=== PATIENT | female | born 1980 | race Caucasian/White ===

== ENCOUNTER → 2020-02-09 08:50 | Outpatient (BNVA) | payer OTHER, SELFPAY | DX: O99.280 Endocrine, nutritional and metabolic diseases complicating pregnancy, unspecified trimester (principal); E06.3 Autoimmune thyroiditis; Z3A.00 Weeks of gestation of pregnancy not specified | CPT/HCPCS: 99211 ==

== ENCOUNTER 2020-02-12 12:43 | Outpatient (REF) | payer OTHER, SELFPAY ==
[2020-02-12 14:32] LABS: Free T4 (Free Thyroxine) 1.03 ng/dL (0.71-1.85)
== END 2020-02-12 12:44 | disposition home or self-care (01) ==
LOC: HO.10HDL 12:43
PROVIDERS: Visit Provider Internal Medicine
DX: E03.9 Hypothyroidism, unspecified (principal)
CPT/HCPCS: 84439; 84443

== ENCOUNTER 2020-02-26 09:55 | Outpatient (REF) | payer OTHER, SELFPAY ==
[2020-02-26 13:59] LABS: MANUAL DIFF FLAG NO
[2020-02-26 14:04] LABS: Basophils Percent Auto 0.3 % (0-2); Eosinophils Absolute Auto 0.1 X10*3/uL (0.0-0.4); Eosinophils Percent Auto 1.1 % (0-4); Hematocrit 37.7 % (37-47); Hemoglobin 12.7 g/dl (12.0-16.0); Imm Gran Abs Auto 0.03 X10*3/uL (0.00-0.03); Imm Gran Pct Auto 0.4 % (0.0-0.4); Lymphocytes Absolute Auto 1.5 X10*3/uL (1.2-4.9); Lymphocytes Percent Auto 21.1 % (20-40); Mean Corpuscular HGB Conc 33.7 g/dl (31.0-35.0); Mean Corpuscular Hemoglobin 31.5 pg (27.0-33.0); Mean Corpuscular Volume 93.5 fL (80-98); Mean Platelet Volume 10.2 fL (9.4-12.3); Monocytes Absolute Auto 0.5 X10*3/uL (0.1-1.2); Monocytes Percent Auto 7.7 % (2-11); Neutrophils Absolute Auto 4.9 X10*3/uL (2.0-8.3); Neutrophils Percent Auto 69.4 % (45-73); Platelet Count 274 X10*3/uL (160-400); Red Blood Count 4.03 X10*6/uL (4.20-5.50); Red Cell Distribution Width 12.8 % (11.0-16.0)
[2020-02-26 14:34] LABS: Amphetamine Screen Urine Not Detected (Not Detect); Barbiturates, Urine Not Detected (Not Detect); Benzodiazepines Screen Urine Not Detected (Not Detect); Cannabinoid Screen Urine Not Detected (Not Detect); Cocaine Screen Urine Not Detected (Not Detect); Opiate Screen Urine Not Detected (Not Detect); Phencyclidine Screen Urine Not Detected (Not Detect)
[2020-02-26 15:16] LABS: Syphilis Screen Nonreactive (Nonreactive)
[2020-02-27 22:14] LABS: Rubella IgG Antibody 8.19 Index
[2020-02-28 08:15] LABS: HBsAGNum1 0.19 S/CO (0.00-0.99); Hepatitis B Surface Antigen Negative (Negative)
[2020-02-28 08:38] LABS: HIV AB/AG Nonreactive (Nonreactive); HIV Num 1 0.11 S/CO (0.00-0.99); ~HepC Num1 0.08 S/CO (0.00-0.79); ~Hepatitis C Antibody Nonreactive (Nonreactive)
== END 2020-02-26 09:56 | disposition home or self-care (01) ==
LOC: HO.LAB 09:55
PROVIDERS: Advanced Practice Midwife; Visit Provider Advanced Practice Midwife
DX: O09.511 Supervision of elderly primigravida, first trimester (principal); O26.891 Other specified pregnancy related conditions, first trimester; R11.0 Nausea; O92.29 Other disorders of breast associated with pregnancy and the puerperium; O99.281 Endocrine, nutritional and metabolic diseases complicating pregnancy, first trimester; E03.9 Hypothyroidism, unspecified; Z3A.01 Less than 8 weeks gestation of pregnancy
CPT/HCPCS: 36415; 80307; 85025; 86762; 86780; 86787; 86803; 86850; 87086; 87088; 87186; 87340; 87389

== ENCOUNTER 2020-03-11 08:50 | Outpatient (REF) | payer OTHER, SELFPAY ==
[2020-03-11 12:24] LABS: Free T4 (Free Thyroxine) 1.09 ng/dL (0.71-1.85); Thyroid Stimulating Hormone 3.09 uIU/mL (0.32-4.0)
[2020-03-13 13:03] LABS: C. trachomatis RNA TMA NOT DETECTED; N. gonorrhoeae RNA TMA NOT DETECTED
== END 2020-03-11 08:51 | disposition home or self-care (01) ==
LOC: HO.LAB 08:50
PROVIDERS: Absent Provider Internal Medicine; Visit Provider Advanced Practice Midwife
DX: Z34.90 Encounter for supervision of normal pregnancy, unspecified, unspecified trimester (principal); Z34.01 Encounter for supervision of normal first pregnancy, first trimester; Z3A.09 9 weeks gestation of pregnancy; E03.9 Hypothyroidism, unspecified; Z13.31 Encounter for screening for depression
CPT/HCPCS: 84439; 84443; 87086; 87491; 87591

== ENCOUNTER → 2020-03-18 09:36 | Outpatient (BNVA) | payer OTHER, SELFPAY | PROVIDERS: Visit Provider Internal Medicine | DX: Z76.89 Persons encountering health services in other specified circumstances (principal) ==

== ENCOUNTER 2020-03-29 09:20 | Outpatient (REF) | payer OTHER, SELFPAY ==
--- NOTE | 2020-03-29 09:24 | US_ITS ---
EXAMINATION: OBSTETRICAL ULTRASOUND, FIRST TRIMESTER HISTORY: 39-year-old at 11.5 weeks NT screening COMPARISON: None TECHNIQUE: Real time transabdominal imaging with color and M-mode Doppler. FINDINGS: A single, live IUP CRL of 55 mm c/w 12.1wks is noted. Heart Rate: 170 beats per minute. Normal yolk sac seen. NT was 1.1.mm. NB Present The embryo appears sonographically wnl for this GA. Both maternal ovaries are seen and appear normal. GESTATIONAL AGE: 1. Established GA: 11.5 wks 2. GA from [facility]: 12.1 wks ESTIMATED DATE OF DELIVERY: 1. Established CRUZ: 10/13/2020 2. CRUZ from [facility]: 10/10/2020 US/US OB 1T nuc measure IMPRESSION: 1. A single live IUP 2. Size equals dates 3. NT of 1.1 mm MFM Consultation: I reviewed the ultrasound findings along with significance of NT measurement. The NT of less than 3mm is generally reassuring. However, the sensitivity for T21 detection is only 60%. I reviewed the availability of serum aneuploidy screening which includes cell-free DNA and placental protein based tests. I discussed the sensitivity, false-positive rate, and other limitations associated with each test. I also reviewed the availability of invasive diagnostic tests that are associated small but definite risk of miscarriage. We also reviewed the differences between screening tests and diagnostic tests. After our discussion, she opted for the First trimester screening that is based on cell-free DNA or non-invasive testing (NIPT). A follow up at 18 weeks for survey has been scheduled. Thank you very much for this referral. Time spent 30 min (0,10,10)
== END 2020-03-29 09:21 | disposition home or self-care (01) ==
LOC: HO.US 09:20
PROVIDERS: Visit Provider Advanced Practice Midwife
DX: O09.521 Supervision of elderly multigravida, first trimester (principal); O26.841 Uterine size-date discrepancy, first trimester; Z3A.11 11 weeks gestation of pregnancy; Z36.82 Encounter for antenatal screening for nuchal translucency
CPT/HCPCS: 76813

== ENCOUNTER → 2020-04-15 10:07 | Outpatient (BNVA) | payer OTHER, SELFPAY | PROVIDERS: Visit Provider Advanced Practice Midwife | DX: Z76.89 Persons encountering health services in other specified circumstances (principal) | CPT/HCPCS: 99212 ==

== ENCOUNTER 2020-05-06 08:00 | Outpatient (REF) | payer OTHER, SELFPAY ==
[2020-05-06 09:18] LABS: Free T4 (Free Thyroxine) 1.02 ng/dL (0.71-1.85); Thyroid Stimulating Hormone 1.28 uIU/mL (0.32-4.0)
[2020-05-07 13:32] LABS: C. trachomatis RNA TMA NOT DETECTED (NOT DETECTED); N. gonorrhoeae RNA TMA NOT DETECTED (NOT DETECTED)
== END 2020-05-06 08:01 | disposition home or self-care (01) ==
LOC: HO.LAB 08:00
PROVIDERS: Visit Provider Internal Medicine
DX: O99.280 Endocrine, nutritional and metabolic diseases complicating pregnancy, unspecified trimester (principal); E03.9 Hypothyroidism, unspecified
CPT/HCPCS: 36415; 84439; 84443; 87491; 87591

== ENCOUNTER → 2020-05-08 08:32 | Outpatient (BNVA) | payer OTHER, SELFPAY | PROVIDERS: PCP Nurse Practitioner Family; Visit Provider Internal Medicine ==

== ENCOUNTER → 2020-05-13 11:45 | Outpatient (BNVA) | payer OTHER, SELFPAY | PROVIDERS: PCP Nurse Practitioner Family; Visit Provider Advanced Practice Midwife | DX: Z76.89 Persons encountering health services in other specified circumstances (principal) | CPT/HCPCS: 99212 ==

== ENCOUNTER 2020-05-24 12:02 | Outpatient (REF) | payer OTHER, SELFPAY ==
--- NOTE | ~2020-05-24 | US_ITS ---
EXAMINATION: US OBSTETRICAL CLINICAL INFORMATION: 39-year-old at 19.1 weeks of gestation AMA Screening for anomaly COMPARISON: 03/29/2020 TECHNIQUE: Real-time transabdominal ultrasound was performed using C1-5 megahertz transducer. FINDINGS: A single, active, fetus is seen in transverse presentation. The placenta is left lateral without previa, and the amniotic fluid volume is wnl. MEASUREMENTS: 1. Biparietal Diameter: 4.5 cm; 19.5 wks 2. Occipital Frontal Diameter: 5.7 cm 3. Head Circumference: 16.9 cm; 19.4 wks 4. Abdominal Circumference: 14.7 cm; 20.0 wks 5. Femur Length: 3.1 cm; 19.5 wks 6. Humerus Length: 3.1 cm; 20.4 wks 7. Tibia Length: 2.7 cm; 20.0 wks 8. Ulna Length: 2.99 cm; 21.1 wks 9. Lateral ventricle: 0.56 cm 10. Cerebellum: 1.9 cm; 19.3 wks 11. Cisterna Magna: 0.27 cm 12. Nuchal Fold: 4.0 mm 13. Heart Rate: 137 beats per minute Rt ovary: normal Lt ovary: normal Cervical length 4.3 cm on T/A. GESTATIONAL AGE: 1. Established GA: 19.5 wks 2. GA from [facility]: 19.6 wks ESTIMATED DATE OF DELIVERY: 1. Established CRUZ: 10/13/2020 2. CRUZ from [facility]: 10/12/2020 ANATOMY: The visualized anatomy includes but not limited to: 1. Cranium: Normal 2. Intracranial anatomy: cavum septum pellucidi, lateral ventricles, choroid plexus, cerebellum, posterior fossa, third and fourth ventricles. 3. face: orbits, lip/palate, profile, nasal bone 4. Heart: four-chamber view of the heart, ventricular septum, foramen ovale, pulmonary vein, left and right outflow tracts, three-vessel view, 3 vessel trachea view, aortic and ductal arches, situs.. 5. Diaphragm: Normal 6. Abdominal wall: Normal 7. Cord Insertion: Normal 8. Spine: Cervical, thoracic, lumbar, sacral. 9. Stomach: Normal size and shape 10. Right Kidney: Normal 11. Left Kidney: Normal 12. 3 vessel cord: Normal 13. Upper extremity: Open hands, fifth digit. 14. Lower extremity: Tibia, fibula, bilateral feet. 15. Bladder: Normal 16. Genitalia: Male, patient aware US/US OB /maternal detail IMPRESSION: 1. Single, living, intrauterine with appropriate biometry. 2. Normal survey DISCUSSION: I reviewed today's ultrasound findings. We discussed the limitations of ultrasound in diagnosing aneuploidy and other congenital abnormalities. I reviewed the differences between screening test and diagnostic test. Amniocentesis was discussed and declined. She was informed that the baseline incidence of congenital abnormalities is approximately 3-5%. Not all these conditions are diagnosable in utero. RECOMMENDATIONS: 1. Follow-up when necessary Thank you for allowing me to participate in her care. Total time 30 minutes. The time spent was devoted to counseling the patient about the disease and diagnosis, coordinating care including reviewing her records, pertinent lab data and studies, as well as discussing diagnostic evaluation and workup, plan therapeutic interventions and future disposition of care. This includes any additional research needed to obtain further information in formulating the plan of care of this patient. This note was generated with a voice recognition program. Please excuse any errors which may have been overlooked during my review of this note. Sometimes these errors may affect the content or meaning of a given sentence.
== END 2020-05-24 12:03 | disposition home or self-care (01) ==
LOC: HO.US 12:02
PROVIDERS: Visit Provider Advanced Practice Midwife
DX: Z36.3 Encounter for antenatal screening for malformations (principal)
CPT/HCPCS: 76811

== ENCOUNTER 2020-06-10 09:08 | Outpatient (REF) | payer OTHER, SELFPAY | END 2020-06-10 09:09 | disposition home or self-care (01) | LOC: HO.LAB 09:08 | PROVIDERS: PCP Nurse Practitioner Family; Visit Provider Advanced Practice Midwife | DX: O09.522 Supervision of elderly multigravida, second trimester (principal); O23.42 Unspecified infection of urinary tract in pregnancy, second trimester; Z3A.22 22 weeks gestation of pregnancy | CPT/HCPCS: 81003; 87086; 99212 ==

== ENCOUNTER → 2020-07-01 08:15 | Outpatient (BNVA) | payer OTHER, SELFPAY | PROVIDERS: PCP Nurse Practitioner Family; Visit Provider Advanced Practice Midwife | DX: Z34.92 Encounter for supervision of normal pregnancy, unspecified, second trimester (principal); Z3A.25 25 weeks gestation of pregnancy | CPT/HCPCS: 81003; 99212 ==

== ENCOUNTER 2020-07-08 11:40 | Outpatient (REF) | payer OTHER, SELFPAY ==
[2020-07-08 14:20] LABS: Hematocrit 30.6 % (37-47); Hemoglobin 10.3 g/dl (12.0-16.0); Mean Corpuscular HGB Conc 33.7 g/dl (31.0-35.0); Mean Corpuscular Hemoglobin 32.3 pg (27.0-33.0); Mean Corpuscular Volume 95.9 fL (80-98); Mean Platelet Volume 10.1 fL (9.4-12.3); Platelet Count 184 X10*3/uL (160-400); Red Blood Count 3.19 X10*6/uL (4.20-5.50); Red Cell Distribution Width 13.5 % (11.0-16.0); White Blood Count 6.9 X10*3/uL (4.8-10.8)
[2020-07-08 14:22] LABS: Glucose 1 Hour PP 50gm Dose 131 mg/dL (60-140)
[2020-07-08 14:53] LABS: Thyroid Stimulating Hormone 0.61 uIU/mL (0.32-4.0)
[2020-07-08 15:15] LABS: Syphilis Screen Nonreactive (Nonreactive)
== END 2020-07-08 11:41 | disposition home or self-care (01) ==
LOC: HO.LAB 11:40
PROVIDERS: Absent Provider Internal Medicine; Visit Provider Advanced Practice Midwife
DX: O99.280 Endocrine, nutritional and metabolic diseases complicating pregnancy, unspecified trimester (principal); E03.9 Hypothyroidism, unspecified; Z20.2 Contact with and (suspected) exposure to infections with a predominantly sexual mode of transmission
CPT/HCPCS: 36415; 84439; 84443; 85027; 86780

== ENCOUNTER → 2020-07-22 10:42 | Outpatient (BNVA) | payer OTHER, SELFPAY | PROVIDERS: Visit Provider Advanced Practice Midwife | DX: Z34.93 Encounter for supervision of normal pregnancy, unspecified, third trimester (principal); Z3A.28 28 weeks gestation of pregnancy; Z13.31 Encounter for screening for depression | CPT/HCPCS: 81003; 99212 ==

== ENCOUNTER → 2020-08-05 10:29 | Outpatient (BNVA) | payer OTHER, SELFPAY | PROVIDERS: Visit Provider Advanced Practice Midwife | DX: Z34.93 Encounter for supervision of normal pregnancy, unspecified, third trimester (principal); Z3A.30 30 weeks gestation of pregnancy | CPT/HCPCS: 81003; 99212 ==

== ENCOUNTER 2020-08-16 08:23 | Outpatient (REF) | payer OTHER, SELFPAY ==
--- NOTE | ~2020-08-16 | US_ITS ---
EXAMINATION: OBSTETRICAL ULTRASOUND, Follow up HISTORY: 39-year-old at the 32.0 weeks of gestation AMA High BMI Size date discrepancy COMPARISON: 05/24/2020 TECHNIQUE: Real time transabdominal imaging with color and M-mode Doppler. PRESENTATION: Vertex PLACENTA LOCATION: Left lateral previa AMNIOTIC FLUID: MICHAEL 21 cm MEASUREMENTS: 1. Biparietal Diameter: 8.3 cm; 33.2 wks 2. Head Circumference: 30.2 cm; 33.4 wks 3. Abdominal Circumference: 29.3 cm; 33.2 wks 4. Femur Length: 6.2 cm; 32.2 wks 5. Heart Rate: 143 beats per minute WEIGHT: EFW: 2094 grams (4 lbs 10 oz) -- 71 %. BIOPHYSICAL PROFILE: Motion: 2 Tone: 2 Breathin Amniotic Fluid: 2 Total score: 8/8 GESTATIONAL AGE: 1. Established GA: 32.0 wks 2. GA from [facility]: 33.1 wks ESTIMATED DATE OF DELIVERY: 1. Established CRUZ: 10/11/2020 2. CRUZ from [facility]: 10/03/2020 US/US OB follow up IMPRESSION: 1. Single active fetus is in vertex presentation 2. Size equals dates 3. Reassuring biophysical profile Thank you very much for this referral. This note was generated with a voice recognition program. Please excuse any errors which may have been overlooked during my review of this note. Sometimes these errors may affect the content or meaning of a given sentence.
== END 2020-08-16 08:24 | disposition home or self-care (01) ==
LOC: HO.US 08:23
PROVIDERS: Visit Provider Advanced Practice Midwife
DX: O99.213 Obesity complicating pregnancy, third trimester (principal); O09.513 Supervision of elderly primigravida, third trimester; Z3A.32 32 weeks gestation of pregnancy; E66.9 Obesity, unspecified
CPT/HCPCS: 76816

== ENCOUNTER 2020-08-21 08:14 | Outpatient (REF) | payer OTHER, SELFPAY ==
[2020-08-21 10:26] LABS: Free T4 (Free Thyroxine) 1.09 ng/dL (0.71-1.85); Thyroid Stimulating Hormone 0.42 uIU/mL (0.32-4.0)
== END 2020-08-21 08:15 | disposition home or self-care (01) ==
LOC: HO.LAB 08:14
PROVIDERS: Visit Provider Internal Medicine
DX: O09.513 Supervision of elderly primigravida, third trimester (principal); O99.213 Obesity complicating pregnancy, third trimester; O99.283 Endocrine, nutritional and metabolic diseases complicating pregnancy, third trimester; E03.9 Hypothyroidism, unspecified; E06.3 Autoimmune thyroiditis; Z3A.32 32 weeks gestation of pregnancy
CPT/HCPCS: 36415; 81003; 84439; 84443; 99212

== ENCOUNTER → 2020-08-28 09:24 | Outpatient (BNVA) | payer OTHER, SELFPAY | PROVIDERS: Visit Provider Internal Medicine ==

== ENCOUNTER → 2020-09-02 10:56 | Outpatient (BNVA) | payer OTHER, SELFPAY | PROVIDERS: Visit Provider Advanced Practice Midwife | DX: Z34.93 Encounter for supervision of normal pregnancy, unspecified, third trimester (principal); Z3A.34 34 weeks gestation of pregnancy | CPT/HCPCS: 81003; 90471; 90715; 99212 ==

== ENCOUNTER 2020-09-16 08:48 | Outpatient (REF) | payer OTHER, SELFPAY ==
[2020-09-16 17:51] LABS: CT PCR NOT DETECTED (Not Detect.); NG PCR NOT DETECTED (Not Detect.)
== END 2020-09-16 08:49 | disposition home or self-care (01) ==
LOC: HO.LAB 08:48
PROVIDERS: Visit Provider Advanced Practice Midwife
DX: O99.213 Obesity complicating pregnancy, third trimester (principal); E66.9 Obesity, unspecified
CPT/HCPCS: 59025; 81003; 87081; 87147; 87491; 87591; 99212

== ENCOUNTER 2020-09-20 14:04 | Outpatient (REF) | payer OTHER, SELFPAY ==
--- NOTE | ~2020-09-20 | US_ITS ---
EXAMINATION: OBSTETRICAL ULTRASOUND, Follow up HISTORY: 39-year-old at 37.0 weeks of gestation AMA High BMI COMPARISON: 08/16/2020 TECHNIQUE: Real time transabdominal imaging with color and M-mode Doppler. PRESENTATION: Vertex PLACENTA LOCATION: Left lateral without previa AMNIOTIC FLUID: MICHAEL 11.6 cm MEASUREMENTS: 1. Biparietal Diameter: 9.5 cm; 38.5 wks 2. Head Circumference: 33.9 cm; 39.0 wks 3. Abdominal Circumference: 32.4 cm; 36.3 wks 4. Femur Length: 7.0 cm; 36.0 wks 5. Heart Rate: 140 beats per minute WEIGHT: EFW: 3021 grams (6 lbs 11 oz) -- 49 %. BIOPHYSICAL PROFILE: Motion: 2 Tone: 2 Breathin Amniotic Fluid: 2 Total score: 8/8 GESTATIONAL AGE: 1. Established GA: 37.0 wks 2. GA from [facility]: 37.4 wks ESTIMATED DATE OF DELIVERY: 1. Established CRUZ: 10/11/2020 2. CRUZ from [facility]: 10/07/2020 US/US OB biophysical profile IMPRESSION: 1. A single active fetus is in vertex presentation 2. Size equals dates 3. Reassuring biophysical profile Thank you very much for this referral. Suggest the weekly testing for AMA and high BMI (not scheduled). This note was generated with a voice recognition program. Please excuse any errors which may have been overlooked during my review of this note. Sometimes these errors may affect the content or meaning of a given sentence.
== END 2020-09-20 14:05 | disposition home or self-care (01) ==
LOC: HO.US 14:04
PROVIDERS: Visit Provider Advanced Practice Midwife
DX: O09.513 Supervision of elderly primigravida, third trimester (principal); O99.213 Obesity complicating pregnancy, third trimester; E66.9 Obesity, unspecified; Z3A.36 36 weeks gestation of pregnancy
CPT/HCPCS: 59025; 76819; 81003; 99212

== ENCOUNTER → 2020-09-24 10:42 | Outpatient (BNVA) | payer OTHER, SELFPAY | PROVIDERS: Visit Provider Advanced Practice Midwife ==

== ENCOUNTER 2020-09-24 13:58 | Outpatient (REF) | payer OTHER, SELFPAY ==
--- NOTE | ~2020-09-24 | US_ITS ---
EXAMINATION: US OBSTETRICAL (BIOPHYSICAL PROFILE) CLINICAL INFORMATION: Gestation 37 weeks 4 days. AMA. High BMI. COMPARISON: Obstetrical ultrasound follow-up 09/20/2020, 08/16/2020, obstetrical ultrasound 05/24/2020, 03/29/2020. TECHNIQUE: Ultrasound of the pelvis is performed. Biophysical profile is performed over 30 minutes with assessment of breathing, gross body movement, tone, and qualitative amniotic fluid volume. Each matrix is scored 0 or 2, depending if the metric is present. Maximum total score possible is 8. Examination is not intended to assess for anomalies. FINDINGS: POSITION: Cephalic PLACENTA: Left lateral. No previa. AMNIOTIC FLUID INDEX: 14.2 cm CARDIAC ACTIVITY: 130 beats per minute BIOPHYSICAL PROFILE: Motion: 2 Tone: 2 Breathin Amniotic Fluid: 2 Total score: 8 US/US OB biophysical profile IMPRESSION: 1. Single intrauterine gestation in cephalic position with left lateral placenta. 2. Total biophysical score is 8 (scale 0-8). 3. Amniotic fluid index 14.2 cm. 4. cardiac activity 130 beats per minute.
== END 2020-09-24 13:59 | disposition home or self-care (01) ==
LOC: HO.HMGCX 13:58
PROVIDERS: Visit Provider Advanced Practice Midwife
DX: O09.523 Supervision of elderly multigravida, third trimester (principal); O99.213 Obesity complicating pregnancy, third trimester; O28.8 Other abnormal findings on antenatal screening of mother; Z79.899 Other long term (current) drug therapy; Z3A.37 37 weeks gestation of pregnancy
CPT/HCPCS: 59025; 76819; 99212

== ENCOUNTER 2020-09-27 08:27 | Outpatient (REF) | payer OTHER, SELFPAY ==
--- NOTE | ~2020-09-27 | US_ITS ---
EXAMINATION: US OBSTETRICAL (BIOPHYSICAL PROFILE) CLINICAL INFORMATION: 39-year-old at that 37.4 weeks of gestation High BMI AMA COMPARISON: 09/24/2020 TECHNIQUE: Biophysical profile is performed over 30 minutes with assessment of breathing, gross body movement, tone, and qualitative amniotic fluid volume. FINDINGS: POSITION: Cephalic PLACENTA: Left lateral without previa AMNIOTIC FLUID INDEX: 15 cm CARDIAC ACTIVITY: 139 beats per minute BIOPHYSICAL PROFILE: Motion: 2 Tone: 2 Breathin Amniotic Fluid: 2 The total biophysical score is 8/8 US/US OB biophysical profile IMPRESSION: 1. Single intrauterine gestation in vertex position. 2. Reassuring BPP and MICHAEL She is to continue weekly BPP and NST until delivery at approximately 40-41 weeks of gestation. Thank you for allowing me to participate in her care. This note was generated with a voice recognition program. Please excuse any errors which may have been overlooked during my review of this note. Sometimes these errors may affect the content or meaning of a given sentence.
== END 2020-09-27 08:28 | disposition home or self-care (01) ==
LOC: HO.US 08:27
PROVIDERS: Visit Provider Advanced Practice Midwife
DX: O99.213 Obesity complicating pregnancy, third trimester (principal); E66.9 Obesity, unspecified; Z3A.36 36 weeks gestation of pregnancy
CPT/HCPCS: 59025; 76819; 81003; 99212

== ENCOUNTER → 2020-10-01 08:51 | Outpatient (BNVA) | payer OTHER, SELFPAY | PROVIDERS: Visit Provider Advanced Practice Midwife | DX: Z34.93 Encounter for supervision of normal pregnancy, unspecified, third trimester (principal); Z3A.38 38 weeks gestation of pregnancy | CPT/HCPCS: 59025; 81003; 99212 ==

== ENCOUNTER 2020-10-04 08:21 | Outpatient (REF) | payer OTHER, SELFPAY ==
--- NOTE | ~2020-10-04 | US_ITS ---
EXAMINATION: OBSTETRICAL ULTRASOUND, Follow up HISTORY: 39-year-old at the 39.0 weeks of gestation Size date discrepancy High BMI AMA COMPARISON: 09/27/2020 TECHNIQUE: Real time transabdominal imaging with color and M-mode Doppler. PRESENTATION: Vertex PLACENTA LOCATION: Left lateral without previa AMNIOTIC FLUID: MICHAEL 12.9 cm MEASUREMENTS: 1. Biparietal Diameter: 9.5 cm; 38.5 wks 2. Head Circumference: 35.1 cm; 40.6 wks 3. Abdominal Circumference: 36.8 cm; 40.5 wks 4. Femur Length: 7.2 cm; 36.6 wks 5. Heart Rate: 149 beats per minute WEIGHT: EFW: 3855 grams (8 lbs 2 oz) -- 83 %. BIOPHYSICAL PROFILE: Motion: 2 Tone: 2 Breathin Amniotic Fluid: 2 Total score: 8/8 GESTATIONAL AGE: 1. Established GA: 39.0 wks 2. GA from [facility]: 39.2 wks ESTIMATED DATE OF DELIVERY: 1. Established CRUZ: 10/13/2020 2. CRUZ from [facility]: 10/09/2020 US/US OB follow up IMPRESSION: 1. A single active fetus is in vertex presentation 2. Size greater than dates, EFW corresponds to 83rd percentile 3. BPP 8/8, MICHAEL within normal limits. Thank you very much for this referral. This note was generated with a voice recognition program. Please excuse any errors which may have been overlooked during my review of this note. Sometimes these errors may affect the content or meaning of a given sentence.
== END 2020-10-04 08:22 | disposition home or self-care (01) ==
LOC: HO.US 08:21
PROVIDERS: Visit Provider Advanced Practice Midwife
DX: O28.8 Other abnormal findings on antenatal screening of mother (principal)
CPT/HCPCS: 59025; 76816; 81003; 99212

== ENCOUNTER → 2020-10-08 09:29 | Outpatient (BNVA) | payer OTHER, SELFPAY | PROVIDERS: Visit Provider Advanced Practice Midwife | DX: O09.513 Supervision of elderly primigravida, third trimester (principal); O99.213 Obesity complicating pregnancy, third trimester; Z3A.39 39 weeks gestation of pregnancy | CPT/HCPCS: 59025; 81003; 99212 ==

== ENCOUNTER 2020-10-11 08:21 | Outpatient (REF) | payer OTHER, SELFPAY ==
--- NOTE | ~2020-10-11 | US_ITS ---
EXAMINATION: US OBSTETRICAL (BIOPHYSICAL PROFILE) CLINICAL INFORMATION: 39-year-old at 40.0 weeks of gestation AMA COMPARISON: 10/04/2020 TECHNIQUE: Biophysical profile is performed over 30 minutes with assessment of breathing, gross body movement, tone, and qualitative amniotic fluid volume. FINDINGS: POSITION: Cephalic PLACENTA: Left lateral, no previa AMNIOTIC FLUID INDEX: 12.2 cm CARDIAC ACTIVITY: 158 beats per minute BIOPHYSICAL PROFILE: Motion: 2 Tone: 2 Breathin Amniotic Fluid: 2 The total biophysical score is 8/8 US/US OB biophysical profile IMPRESSION: 1. Single intrauterine gestation in vertex position. 2. Reassuring BPP and MICHAEL Thank you for allowing me to participate in her care. This note was generated with a voice recognition program. Please excuse any errors which may have been overlooked during my review of this note. Sometimes these errors may affect the content or meaning of a given sentence.
== END 2020-10-11 08:22 | disposition home or self-care (01) ==
LOC: HO.US 08:21
PROVIDERS: Visit Provider Advanced Practice Midwife
DX: O09.523 Supervision of elderly multigravida, third trimester (principal); O99.213 Obesity complicating pregnancy, third trimester; Z3A.39 39 weeks gestation of pregnancy
CPT/HCPCS: 59025; 76819; 99212

== ENCOUNTER 2020-12-02 13:40 | Outpatient (REF) | payer OTHER, SELFPAY ==
[2020-12-02 15:13] LABS: Free T4 (Free Thyroxine) 1.03 ng/dL (0.71-1.85); Thyroid Stimulating Hormone 0.77 uIU/mL (0.32-4.0); Vitamin D 25-OH Total 35.6 ng/mL (>30)
== END 2020-12-02 13:41 | disposition home or self-care (01) ==
LOC: HO.LAB 13:40
PROVIDERS: Visit Provider Internal Medicine
DX: E55.9 Vitamin D deficiency, unspecified (principal); E03.9 Hypothyroidism, unspecified
CPT/HCPCS: 36415; 82306; 84439; 84443

== ENCOUNTER → 2020-12-04 08:16 | Outpatient (BNVA) | payer OTHER, SELFPAY | PROVIDERS: Visit Provider Internal Medicine ==

== ENCOUNTER 2020-12-16 08:47 | Outpatient (REF) | payer OTHER, SELFPAY ==
[2020-12-16 13:30] LABS: CT PCR NOT DETECTED (Not Detect.); NG PCR NOT DETECTED (Not Detect.)
== END 2020-12-16 08:48 | disposition home or self-care (01) ==
LOC: HO.LAB 08:47
PROVIDERS: Visit Provider Advanced Practice Midwife
DX: Z39.2 Encounter for routine postpartum follow-up (principal); A64 Unspecified sexually transmitted disease
CPT/HCPCS: 87491; 87591

== ENCOUNTER → 2021-02-03 08:25 | Outpatient (BNVA) | payer OTHER, SELFPAY | PROVIDERS: Visit Provider Advanced Practice Midwife | DX: Z30.430 Encounter for insertion of intrauterine contraceptive device (principal) | CPT/HCPCS: 58300; 81025 ==

== ENCOUNTER → 2021-03-10 08:54 | Outpatient (BNVA) | payer OTHER, SELFPAY | PROVIDERS: Visit Provider Advanced Practice Midwife | DX: Z30.431 Encounter for routine checking of intrauterine contraceptive device (principal) | CPT/HCPCS: 99212 ==

== ENCOUNTER 2021-04-15 09:01 | Outpatient (REF) | payer OTHER, SELFPAY ==
[2021-04-15 10:48] LABS: Free T4 (Free Thyroxine) 0.86 ng/dL (0.71-1.85); Thyroid Stimulating Hormone 9.39 uIU/mL (0.32-4.0); Vitamin D 25-OH Total 25.1 ng/mL (>30)
== END 2021-04-15 09:02 | disposition home or self-care (01) ==
LOC: HO.LAB 09:01
PROVIDERS: Visit Provider Internal Medicine
DX: E03.9 Hypothyroidism, unspecified (principal); E55.9 Vitamin D deficiency, unspecified
CPT/HCPCS: 36415; 82306; 84439; 84443

== ENCOUNTER → 2021-04-16 07:46 | Outpatient (BNVA) | payer OTHER, SELFPAY | PROVIDERS: Visit Provider Internal Medicine ==

== ENCOUNTER 2021-05-23 11:57 | Outpatient (REF) | payer OTHER, SELFPAY ==
[2021-05-23 13:17] LABS: Free T4 (Free Thyroxine) 1.09 ng/dL (0.71-1.85); Thyroid Stimulating Hormone 6.58 uIU/mL (0.32-4.0); Vitamin D 25-OH Total 32.1 ng/mL (>30)
== END 2021-05-23 11:58 | disposition home or self-care (01) ==
LOC: HO.LAB 11:57
PROVIDERS: Visit Provider Internal Medicine
DX: E03.9 Hypothyroidism, unspecified (principal); E55.9 Vitamin D deficiency, unspecified
CPT/HCPCS: 36415; 82306; 84439; 84443

== ENCOUNTER 2021-07-30 10:27 | Outpatient (REF) | payer OTHER, SELFPAY ==
[2021-07-30 11:26] LABS: Free T4 (Free Thyroxine) 1.11 ng/dL (0.71-1.85); Thyroid Stimulating Hormone 0.78 uIU/mL (0.32-4.0)
== END 2021-07-30 10:28 | disposition home or self-care (01) ==
LOC: HO.10HDL 10:27
PROVIDERS: Visit Provider Internal Medicine
DX: E03.9 Hypothyroidism, unspecified (principal)
CPT/HCPCS: 36415; 84439; 84443

== ENCOUNTER → 2021-08-04 09:04 | Outpatient (BNVA) | payer OTHER, SELFPAY | PROVIDERS: Visit Provider Internal Medicine | DX: E03.9 Hypothyroidism, unspecified (principal); E55.9 Vitamin D deficiency, unspecified ==

== ENCOUNTER → 2022-03-02 08:18 | Outpatient (BNVA) | payer OTHER, SELFPAY | PROVIDERS: Visit Provider Advanced Practice Midwife | DX: Z01.419 Encounter for gynecological examination (general) (routine) without abnormal findings (principal); Z30.432 Encounter for removal of intrauterine contraceptive device; Z30.09 Encounter for other general counseling and advice on contraception | CPT/HCPCS: 58301 ==

== ENCOUNTER 2022-11-20 09:46 | Outpatient (REF) | payer OTHER, SELFPAY ==
--- NOTE | ~2022-11-20 | MM_ITS ---
EXAMINATION: MM SCREENING DIGITAL BREAST TOMOSYNTHESIS, BILATERAL CLINICAL INFORMATION: Screening. Asymptomatic. COMPARISON: Mammography: None. Baseline exam. TECHNIQUE: Digital breast tomosynthesis is performed in both the craniocaudal and mediolateral oblique views along with computer-aided detection (CAD). Synthesized 2D images are generated from the tomosynthesis. FINDINGS: There are scattered areas of fibroglandular density (ACR BI-RADS breast composition Category b). Within the right breast, middle one third, approximate 11:30 o'clock location, there is a 7 mm bilobed circumscribed mass most consistent with an intramammary lymph node although ultrasound recommended for confirmation. No additional abnormal findings in the right breast. Within the left breast, upper outer quadrant, anterior one third, there is a 9 mm triangular circumscribed mass, most likely an intramammary lymph node, although ultrasound recommended for confirmation. No additional abnormalities in the left breast. MM/MM tomosynthesis screening BI IMPRESSION: Bilateral breast masses suspicious for lymph nodes as detailed above. Recommend bilateral targeted ultrasound for further evaluation. ASSESSMENT: BI-RADS BI-RADS 0 - Incomplete: Needs additional Imaging. RECOMMENDATION: 1. Targeted ultrasound both breasts as detailed. 2. Radiology department staff will contact the patient for additional imaging. Additional Imaging required This examination should not preclude the clinical evaluation of a suspicious palpable abnormality. This patient's information was entered into a reminder system with a target due date for their next mammogram.
== END 2022-11-20 09:47 | disposition home or self-care (01) ==
LOC: HO.MAMMO 09:46
PROVIDERS: PCP Nurse Practitioner Family; Visit Provider Advanced Practice Midwife
DX: Z12.31 Encounter for screening mammogram for malignant neoplasm of breast (principal)
CPT/HCPCS: 77063; 77067

== ENCOUNTER → 2022-11-20 10:00 | Outpatient (BNV) | payer OTHER, SELFPAY | PROVIDERS: PCP Nurse Practitioner Family; Visit Provider Radiology Diagnostic Radiology | DX: Z12.31 Encounter for screening mammogram for malignant neoplasm of breast (principal) | CPT/HCPCS: 77063; 77067 ==

== ENCOUNTER 2022-12-07 12:47 | Outpatient (REF) | payer OTHER, SELFPAY ==
--- NOTE | ~2022-12-07 | US_ITS ---
EXAMINATION: US DIAGNOSTIC ULTRASOUND BREAST, BILATERAL CLINICAL INFORMATION: Evaluate 7 mm bilobed circumscribed mass right BREAST approximately 11:30 o'clock location. Evaluate left triangular shaped 9 mm mass upper outer LEFT breast, anterior one third. COMPARISON: Screening mammography baseline, 11/20/2022. TECHNIQUE: Ultrasound of the both breasts was performed with real-time iniguez scale imaging and color Doppler. Attention was paid to the right breast upper outer quadrant, and the left breast upper outer quadrant. FINDINGS: RIGHT BREAST: Within the 12:00 axis of the right breast, 3 cm from the nipple, there is a small bilobed appearing complicated cyst versus fibroadenoma measuring 3 x 2 x 6 mm. There is a small amount of through transmission, circumscribed margins, no internal color Doppler signal, and no surrounding parenchymal changes. This is a probably benign finding such as a small complicated cyst or fibroadenoma. Six-month interval follow-up targeted right breast ultrasound recommended to ensure stability. No additional abnormalities noted in the RIGHT breast region scanned. LEFT BREAST: Within the 2:00 axis of the left breast, 5 cm from the nipple, there is an oval slightly hypoechoic mass versus complicated cyst with minimal through transmission, no internal color Doppler signal, and and circumscribed margins, measuring 7 x 4 x 7 mm. This may be a small fibroadenoma versus complicated cyst and is a probably benign finding. Six-month interval follow-up targeted left breast ultrasound recommended to ensure stability. No additional abnormalities noted in the LEFT breast region scanned. Results were discussed with the patient at time of the visit. US/US breast BI limited mamm only IMPRESSION: Bilateral small probably benign subcentimeter breast masses versus complicated cysts as detailed. Recommend six-month interval follow-up targeted bilateral breast ultrasounds to ensure stability. ASSESSMENT: BI-RADS 3: Probably Benign RECOMMENDATION: Diagnostic ultrasonography in 6 months. This patient's information was entered into a reminder system with a target due date for their next mammogram.
== END 2022-12-07 12:48 | disposition home or self-care (01) ==
LOC: HO.MAMMO 12:47
PROVIDERS: PCP Nurse Practitioner Family; Visit Provider Nurse Practitioner Family
DX: N63.11 Unspecified lump in the right breast, upper outer quadrant (principal); N63.21 Unspecified lump in the left breast, upper outer quadrant
CPT/HCPCS: 76642

== ENCOUNTER → 2022-12-07 13:00 | Outpatient (BNV) | payer OTHER, SELFPAY | PROVIDERS: PCP Nurse Practitioner Family; Visit Provider Radiology Diagnostic Radiology | DX: R92.8 Other abnormal and inconclusive findings on diagnostic imaging of breast (principal) | CPT/HCPCS: 76642 ==

== ENCOUNTER 2022-12-21 10:14 | Outpatient (AMB) | payer OTHER, SELFPAY ==
--- NOTE | 2022-12-21 10:18 | MHC.PC.OV ---
Vital Signs 12/21/22 10:25 Height 5 ft 3.5 in Weight 239 lb 2 oz BMI 41.7 BP 132/78 Blood Pressure Location Lt brachial Position Sitting Pulse 72 Pulse Source Pulse Oximeter Pulse Oximetry (%) 98 Oxygen Delivery Method Room Air Intake Visit Reasons: New patient-requesting physical Intake Note: Patient is a new patient here to establish care for Hashimodoes(Immune Hypothyroidism) . Transfer[place] Wang ([facility] [place] Medical records have not been requested and have not received. Sap Developer Required: No Corporate Legal Secretary: Not Required per policy Accompanied by: Self / Same As Patient Allergies No Known Allergies Allergy (Verified 12/21/22 10:25) Tobacco use date assessed: 12/21/22 Dental Screening Dental Screen Date: 12/21/22 Did you have a dental visit in the last 12 months?: Yes Did you have a dental problem in the last 6 months where you did not have access to dental care?: No Was dental information given to patient?: Patient has dentist HPI HPI Comments History of Present Illness Details 42-year-old female new patient presents today to establish care. Past medical history significant for Samuel hypothyroidism, vitamin-D deficiency and obesity. Patient reports currently following with [facility] functional medicine for hypothyroidism patient currently on Gorman Thyroid 120mg daily, last TSH completed in 1.98, Free T4 0.82, CMP unremarkable. Patient reports that has been on levothyroxine in the past for many years and states it does not work for. On levothyroxine patient continues to experience fatigue and sluggishness. Patient denies any chest pain, palpitations shortness of breath or syncope. Mammogram: November, possible cyst vs fibroademon f/u imaging scheduled in 6 months. pap smear: February 2022, follows with Janice Vergara. Eye exam: 2021 Immunizations: Flu shot given today in office, TDAP August 2020 Previous PCP: Dr. Iggy CEDILLO Medical History COVID-19 vaccine administered Obesity Vitamin D deficiency Hypothyroidism Surgical History History of placement of ear tubes History of appendectomy Family History Father History of heart disease Type 2 diabetes mellitus Maternal Grandmother History of colon cancer Maternal Grandfather History of colon cancer Paternal Grandmother History of heart disease Social History (Updated 12/21/22 @ 10:49 by MIRA Moore) Household Members: Significant Other Both parents involved: Yes Housing: House Are you a primary laboratory animal caretaker to a significant other at home: No Alcohol intake: current Alcohol intake frequency: a few times a month Patient Tobacco Use Status: Never used Tobacco e-Cigarette/Vaping Use: Never Used Second Hand Smoke Exposure: No service: No Current occupational status: employed Current occupation: [employer] Cognitive needs: No Hearing needs: No Vision needs: Yes (glasses) Female Reproductive History Menstrual Age of Menarche: 15 Questionnaire PHQ-9 Over the last 2 weeks, how often have you been bothered by any of the following problems? 1. Little interest or pleasure in doing things: not at all 2. Feeling down, depressed, or hopeless: not at all 3. Trouble falling or staying asleep, or sleeping too much: not at all 4. Feeling tired or having little energy: not at all 5. Poor appetite or overeating: not at all 6. Feeling bad about yourself - or that you are a failure or have let yourself or your family down: not at all 7. Trouble concentrating on things, such as reading the newspaper or watching television: not at all 8. Moving or speaking so slowly that other people could have noticed. Or the opposite - being so fidgety or restless that you have been moving around a lot more than usual: not at all 9. Thoughts that you would be better off or of hurting yourself in some way: not at all Total score: 0 Depression Screening Interpretation: Negative 56782 - PHQ-9 Billing: Yes Source: Developed by Drs. Sandeep Shannon, Arlet Felder, Jair Sanchez and colleagues, with an educational rachael from [employer]. Thrive Questionnaire Date Thrive assessed: 12/21/22 I am a: Patient What is your living situation today?: I have a steady place to live Within the past 12 months, did the food you bought not last and you didn't have the money to get more?: Never true Within the past 12 months, did you worry whether your food would run out before you got money to buy more?: Never true Do you have trouble paying for medicines?: No Do you have trouble getting transportation to medical appointments?: No Do you have trouble paying your heating and electricity bill?: No Do you have trouble taking care of your child, family member or friend?: No Do you have trouble with day-to-day activities such as bathing, preparing meals, shopping, managing finances, etc.?: No Are you currently unemployed and looking for a job?: No Are you interested in more education?: No Currently or been in a relationship where the following occur: no concerns reported AUDIT C Alcohol Use Questionnaire (AUDIT-C) 1. How often do you have a drink containing alcohol?: Never Total Score: 0 RYAN-7 AMB Questionnaire RYAN-7 Date RYAN - 7 assessed: 12/21/22 Feeling nervous, anxious, or on edge: 0 = Not at all Not being able to stop or control worryin = Not at all Worrying too much about different things: 0 = Not at all Trouble relaxin = Not at all Being so restless that it is hard to sit still: 0 = Not at all Becoming easily annoyed or irritable: 0 = Not at all Feeling afraid as if something awful might happen: 0 = Not at all Total RYAN-7 score (0-4 normal; 5-9 mild; 10-14 moderate; 15-21 severe): 0 Source: Developed by Drs. Sandeep Shannon, Arlet Felder, Jair Sanchez and colleagues, with an educational rachael from [employer]. RYAN-7 Assessment Billing RYAN-7 Assessment Tool: RYAN-7 Assessment 99051 Review of Systems Const Denies chills, Denies fatigue, Denies fever(s) and Denies poor appetite Eyes Denies no additional complaints ENT Reports Normal hearing present Card Denies chest pain, Denies syncope, Denies rapid heart rate and Denies dyspnea Resp Denies cough and Denies dyspnea GI Denies change in stool character, Denies constipation, Denies diarrhea, Denies nausea and Denies vomiting Denies urinary frequency, Denies dysuria and Denies urinary urgency Neuro Reports Normal hearing present, Denies confusion and Denies syncope Psych Denies confusion Endo Denies fatigue Physical exam (Primary Care) Vital Signs: Last Vital Signs Pulse 72 12/21/22 10:25 BP 132/78 12/21/22 10:25 Pulse Ox 98 12/21/22 10:25 Oxygen Delivery Method Room Air 12/21/22 10:25 BMI result Body Mass Index 41.7 Tobacco/Smoking Status: Tobacco use Status Tobacco use date assessed 12/21/22 12/21/22 10:32 Patient Tobacco Use Status Never used Tobacco 12/21/22 10:49 e-Cigarette/Vaping Use Never Used 12/21/22 10:49 PHQ-9: PHQ-9 Score PHQ-9: Total score 0 12/21/22 10:50 Depression Screening Interpretation: Negative Thrive Assessment: Date of Thrive Assessment Date Thrive assessed 12/21/22 12/21/22 10:21 Currently or been in a relationship where the following occur: no concerns reported Const General: No confusion Orientation/consciousness: No confusion HENMT Head: Yes normocephalic and Yes atraumatic Ears: external ears normal and TM's normal bilaterally General nose exam: Normal external nose present and Normal nasal mucous membranes and turbinates present Face and sinus: Yes normal facial exam and Yes sinuses nontender Mouth: moist mucous membranes Throat: Yes tonsils normal Eyes Conjunctivae: conjunctivae normal Sclerae: sclerae normal Pupils: Equal, round and reactive pupils present and Pupils normal by confrontation EOM: EOMs intact bilaterally Direct Ophthalmoscopy: normal light reflex Neck Neck: Yes no lymphadenopathy and Yes supple Thyroid: Thyroid normal Chest Chest palpation & inspection: normal inspection of the chest Resp Effort & Inspection: normal respiratory effort Auscultation: clear to auscultation bilaterally, no crackles, no rhonchi and no wheezes Cardio Rate: regular rate Rhythm: regular rhythm Peripheral pulses: radial pulses present and dorsalis pedis present GI Inspection: Yes normal to inspection Palpation (GI): Soft to palpation, nontender and No hepatosplenomegaly present Auscultation: normoactive bowel sounds Skin General skin exam: no rashes or lesions noted Neuro General: No confusion Cranial nerves: Yes Equal, round and reactive pupils present and Yes Normal hearing present Cognition (Neuro): normal cognition Gait exam (Neuro): Normal gait present Motor exam (neuro): 5/5 motor strength present throughout Deep tendon reflexes (DTR's): Right brachioradialis reflex intensity grade: 2+, Left brachioradialis reflex intensity grade: 2+, Right patellar reflex intensity grade: 2+ and Left patellar reflex intensity grade: 2+ Extrem General: No edema Office Procedures Flu Questionnaire Does the patient have a severe egg allergy?: No Does the patient have severe life threatening allergies?: No Does the patient have a fever or illness today?: No Has the patient ever had Guillain-Newcastle Syndrome?: No Has the patient ever had any past reaction to a flu shot?: No Comment: Patient has had flu vaccine in past with no reactions. consents for flu shot today. Immunizations flu vacc [id number] 6mos up(PF) 60 mcg(15 mcgx4)/0.5 mL IM syringe Performing Provider: MIRA Moore Performing Location: [facility] Administered by: Erik Sharif RN on 12/21/22 10:55 Dose Route Admin Location Dispensed Lot Number Expiration Date NDC Pairer Substandard 0.5 mL IM Left Deltoid 0.5 mL [id number] 09/19/23 [id number] [place] VIS Given Date VIS Provided VIS Publication Date 12/21/22 Single Vaccine 20 Eligibility Eligibility Date Funding Source Not [facility] Eligible 12/21/22 Private Administration Comments: tolerated well Assessment and Plan Assessment & Plan (1) Hypothyroidism: Code(s): E03.9 - Hypothyroidism, unspecified Qualifiers: Hypothyroidism type: unspecified Qualified Code(s): E03.9 - Hypothyroidism, unspecified Plan: Continue on armor Thyroid 20 mg daily. Continue to follow with [facility] functional medicine. (2) Vitamin D deficiency: Code(s): E55.9 - Vitamin D deficiency, unspecified Plan: Vitamin-D level ordered. (3) Obesity: Code(s): E66.9 - Obesity, unspecified Plan: Diet and exercise to decrease BMI. (4) Physical exam, annual: Code(s): Z00.00 - Encounter for general adult medical examination without abnormal findings Plan: Follow-up in 1 year for physical exam. Plan Follow-up in 1 year sooner if needed. Orders: Orders Influenza [id number] Immunization Today Z23 - Encounter for immunization Complete Blood Count Auto Diff Today Z13.0 - Encounter for screening for diseases of the blood and blood-forming organs and certain disorders involving the immune mechanism Lipid Panel Today Z13.220 - Encounter for screening for lipoid disorders Comprehensive [place]. Panel Fast Today E66.9 - Obesity, unspecified TSH reflex Free T4 Today Z13.29 - Encounter for screening for other suspected endocrine disorder Vitamin D 25-OH Total Today E55.9 - Vitamin D deficiency, unspecified Coding Level of Care Code New Pt Prev Care 40-64y(80751) Diagnoses Hypothyroidism, unspecified type E03.9 Hypothyroidism type: unspecified Vitamin D deficiency E55.9 Obesity E66.9 Physical exam, annual Z00.00 Additional Codes RYAN-7 Assessment Billing - RYAN-7 Assessment Tool: RYAN-7 Assessment 70794 ([id number])
[2022-12-21 10:25] VITALS: BP 132/78; PULSE 72; O2SAT 98; BMI 41.7
== END 2022-12-21 11:03 | disposition home or self-care (01) ==
PROVIDERS: PCP Nurse Practitioner Family; Visit Provider Nurse Practitioner Family
DX: Z00.00 Encounter for general adult medical examination without abnormal findings (principal); E03.9 Hypothyroidism, unspecified; E55.9 Vitamin D deficiency, unspecified; Z23 Encounter for immunization
CPT/HCPCS: 90471; 90686; 99386

== ENCOUNTER 2023-01-25 07:55 | Outpatient (REF) | payer OTHER, SELFPAY ==
[2023-01-25 08:28] LABS: MANUAL DIFF FLAG NO
[2023-01-25 09:09] LABS: Basophils Percent Auto 0.3 % (0-2); Eosinophils Absolute Auto 0.1 X10*3/uL (0.0-0.4); Eosinophils Percent Auto 1.9 % (0-4); Hematocrit 39.2 % (37.0-47.0); Hemoglobin 13.1 g/dl (12.0-16.0); Imm Gran Abs Auto 0.02 X10*3/uL (0.00-0.03); Imm Gran Pct Auto 0.3 % (0.0-0.4); Lymphocytes Absolute Auto 1.6 X10*3/uL (1.2-4.9); Lymphocytes Percent Auto 26.7 % (20-40); Mean Corpuscular HGB Conc 33.4 g/dl (31.0-35.0); Mean Corpuscular Volume 89.7 fL (80.0-98.0); Mean Platelet Volume 9.7 fL (9.4-12.3); Monocytes Absolute Auto 0.3 X10*3/uL (0.1-1.2); Monocytes Percent Auto 5.8 % (2-11); Neutrophils Absolute Auto 3.8 x10*3/uL (2.0-8.3); Platelet Count 268 X10*3/uL (160-400); Red Blood Count 4.37 X10*6/uL (4.20-5.50); Red Cell Distribution Width 12.7 % (11.0-16.0); White Blood Count 5.9 X10*3/uL (4.8-10.8)
[2023-01-25 09:46] LABS: Alanine Aminotransferase 13 U/L (0-31); Albumin Level 4.1 g/dL (3.5-5.0); Alkaline Phosphatase 43 U/L (39-117); Anion Gap 10 (12-20); Aspartate Amino Transferase 15 U/L (5-31); Bilirubin Total 0.9 mg/dL (0.0-1.0); Blood Urea Nitrogen 19 mg/dL (9-16); Calcium 9.3 mg/dL (8.4-10.2); Carbon Dioxide 23 mmol/L (22-29); Chloride 110 mmol/L (96-108); Cholesterol 183 mg/dL (<200); Estimated Glomerular Filt Rate > 60; Glucose Fasting 94 mg/dL (60-99); HDL Cholesterol 57 mg/dL (>40); LDL Cholesterol Calculated 117 mg/dL (<100); Potassium 4.4 mmol/L (3.3-5.1); Sodium 139 mmol/L (135-145); Total Protein 6.9 g/dL (6.5-8.0); Triglycerides 45 mg/dL (<150)
[2023-01-25 09:52] LABS: TSH reflex Free T4 1.63 uIU/mL (0.32-4.0)
[2023-01-25 09:57] LABS: Vitamin D 25-OH Total 37.3 ng/mL (>30)
== END 2023-01-25 07:56 | disposition home or self-care (01) ==
LOC: HO.LAB 07:55
PROVIDERS: PCP Nurse Practitioner Family; Visit Provider Nurse Practitioner Family
DX: E66.9 Obesity, unspecified (principal); E55.9 Vitamin D deficiency, unspecified; Z13.0 Encounter for screening for diseases of the blood and blood-forming organs and certain disorders involving the immune mechanism; Z13.220 Encounter for screening for lipoid disorders; Z13.29 Encounter for screening for other suspected endocrine disorder
CPT/HCPCS: 36415; 80053; 80061; 82306; 84443; 85025

== ENCOUNTER 2023-03-10 08:19 | Outpatient (AMB) | payer OTHER, SELFPAY ==
--- NOTE | 2023-03-10 08:20 | MHC.OFFVIS ---
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 Doing well with concerns: Trying to conceive over the last year. 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 Currently taking her vitamins. Regular monthly menses, except for the last cycle which was 10 days late. She denies vaginal itching and irritation. STI screening offered; she declined. Denies family history of breast, ovarian cancer. Last pap smear 2018, negative. Mammogram: Up-to-date. [facility] Medical History COVID-19 vaccine administered Obesity Vitamin D deficiency Hypothyroidism Surgical History History of placement of ear tubes History of appendectomy Family History Father History of heart disease Type 2 diabetes mellitus Maternal Grandmother History of colon cancer Maternal Grandfather History of colon cancer Paternal Grandmother History of heart disease Social History Household Members: Significant Other Both parents involved: Yes Housing: House Are you a primary primary care nurse practitioner to a significant other at home: No Alcohol intake: current Alcohol intake frequency: a few times a month Patient Tobacco Use Status: Never used Tobacco e-Cigarette/Vaping Use: Never Used Second Hand Smoke Exposure: No service: No Current occupational status: employed Current occupation: [employer] Cognitive needs: No Hearing needs: No Vision needs: Yes (glasses) Female Reproductive History Menstrual Age of Menarche: 15 Date of last menstrual period: 03/09/23 Total pregnancies: 1 Full term: 1 Number of Living Children: 1 Date of last pap smear: 09/05/18 (neg pap and hpv) History of abnormal pap smear: Yes (06/05 ascus neg hpv) Date of Mammogram: 11/20/22 (Birad 1) Review of Systems Const All systems reviewed & are unremarkable except as noted in HPI and below Reports as per HPI Eyes Reports no additional complaints ENT Reports no additional complaints Card Reports no additional complaints Resp Reports no additional complaints GI Reports as per HPI and Reports no additional complaints Reports as per HPI Musc Reports no additional complaints Skin/Breast Reports as per HPI Neuro Reports no additional complaints Psych Reports no additional complaints Endo Reports no additional complaints Rashel/Lymph Reports no additional complaints Aller/Immun Reports no additional complaints Physical Exam Vital Signs: Last Vital Signs BP 108/68 03/10/23 08:22 BMI result Body Mass Index 42.5 Const General: cooperative, healthy appearing, no acute distress, well developed and alert Orientation/consciousness: patient oriented x3 HEENT Head: Yes normal to inspection Eyes General: appearance normal, both eyes and all related structures Neck Neck: Yes normal visual inspection Thyroid: Thyroid normal Chest Chest palpation & inspection: normal inspection of the chest and other (no puckering, dimpling, peau de orange, retraction, discharge, masses) Breast/axilla inspection: normal inspection of the breasts Breast/axilla palpation: normal palpation of the breasts Resp Effort & Inspection: normal respiratory effort GI Other: Ob Inspection: Yes normal to inspection Palpation (GI): Soft to palpation Rectal Exam - Female: deferred General: Yes bladder normal to palpation External Female Exam: normal external appearance and normal appearance of the urethra Speculum Exam - Vagina: normal appearance of the vagina, normal palpation and normal vaginal discharge Speculum Exam - Cervix: normal appearance of the cervix and normal palpation Bimanual exam- vagina & uterus: normal bimanual exam, normal palpation, uterine size normal, bladder normal to palpation, normal palpation and non-tender Bimanual Exam- Adnexa, other: no masses Skin General skin exam: no rashes or lesions noted Rashes: no rashes Neuro General: patient oriented x3 Cognition (Neuro): normal cognition Extrem General: Yes normal to inspection Psych Attitude: cooperative Thought process: Normal thought process present Assessment & Plan Assessment & Plan (1) Encounter for well woman exam with routine gynecological exam: Code(s): Z01.419 - Encounter for gynecological examination (general) (routine) without abnormal findings Plan Discussed: Current recommendations for pap smears per ASCCP guidelines. Breast awareness and periodic breast exams. Maintain a healthy lifestyle including a well balanced diet and routine exercise. Weight loss goals, BMI impact on fertility. Reviewed weight gain over this year was 31 lb., she reports motivation to lose weight on her own. Continue to use fertility hilaria. Discussed [facility] services locally recurrent late on hold for 6 months if she decides she would like to travel to [facility] or [place] she can request a referral. Mammogram yearly. Colonoscopy >45, or at risk sooner. All of her questions and concerns were addressed to the best of my ability. 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 This note is constructed using voice recognition software. While every effort has been made to ensure accuracy, baby doctor errors may have been included. Medications: Refilled PNV,calcium [id number] acid 27 mg iron- 1 mg ( Vitamins Plus Low Iron) 1 tab PO DAILY 90 tabs 4RF Coding Level of Care Code Est Pt Prev Care 40-64y(95948) Diagnoses Encounter for well woman exam with routine gynecological exam Z01.419
[2023-03-10 08:22] VITALS: BP 108/68; BMI 42.5
== END 2023-03-10 08:52 | disposition home or self-care (01) ==
LOC: HO.HWS 08:19
PROVIDERS: PCP Nurse Practitioner Family; Visit Provider Advanced Practice Midwife
DX: Z01.419 Encounter for gynecological examination (general) (routine) without abnormal findings (principal)
CPT/HCPCS: 99396

== ENCOUNTER → 2023-03-10 08:19 | Outpatient (BNVA) | payer OTHER, SELFPAY | PROVIDERS: PCP Nurse Practitioner Family; Visit Provider Advanced Practice Midwife | DX: Z01.419 Encounter for gynecological examination (general) (routine) without abnormal findings (principal) | CPT/HCPCS: 99396 ==

== ENCOUNTER 2023-06-07 12:37 | Outpatient (REF) | payer OTHER, SELFPAY ==
--- NOTE | ~2023-06-07 | US_ITS ---
EXAMINATION: US DIAGNOSTIC ULTRASOUND BREAST, BILATERAL CLINICAL INFORMATION: Follow-up bilateral probably benign densities seen 12/07/2022 ultrasound. Correlation made with baseline screening mammogram 11/20/2022. COMPARISON: Bilateral diagnostic ultrasound 12/07/2022. Screening mammography baseline, 11/20/2022. TECHNIQUE: Ultrasound of both breasts is performed with real-time iniguez scale imaging and color Doppler. Attention right breast was given to the 12:00 axis, and attention left breast was given to the approximate 2:00 axis. FINDINGS: LEFT BREAST: -Small oval circumscribed hypoechoic mass in the 2:00 axis, 5 cm from the nipple, with good through transmission and no internal color vascularity, is essentially stable measuring 8 x 4 x 4 mm. This is most likely a benign fibroadenoma. Finding remains probably benign. No additional abnormalities left breast. RIGHT BREAST: -In the 12:00 axis left breast, 3 cm from the nipple, there is a stable and unchanged 3 x 3 x 6 mm small mildly hypoechoic circumscribed fibroadenoma or complicated cyst with good through transmission, and remains probably benign. US/US breast BI limited mamm only IMPRESSION: Probably benign findings both breasts as detailed, unchanged. 6 month interval follow-up recommended targeted bilateral breast ultrasound when the patient is due for bilateral screening mammography in November,. ASSESSMENT: BI-RADS 3: Probably Benign RECOMMENDATION: Diagnostic bilateral ultrasound in 6 months. This patient's information was entered into a reminder system with a target due date for their next mammogram.
== END 2023-06-07 12:38 | disposition home or self-care (01) ==
LOC: HO.MAMMO 12:37
PROVIDERS: PCP Internal Medicine; Visit Provider Internal Medicine
DX: R92.2 Inconclusive mammogram (principal)
CPT/HCPCS: 76642

== ENCOUNTER → 2023-06-07 14:00 | Outpatient (BNV) | payer OTHER, SELFPAY | PROVIDERS: PCP Internal Medicine; Visit Provider Radiology Diagnostic Radiology | DX: N60.21 Fibroadenosis of right breast (principal); N60.22 Fibroadenosis of left breast | CPT/HCPCS: 76642 ==

== ENCOUNTER 2023-08-02 15:02 | Outpatient (AMB) | payer OTHER, SELFPAY ==
[2023-08-02 15:05] VITALS: BP 112/80; BMI 41.5
--- NOTE | 2023-08-02 15:05 | A.OFFPC_ITS ---
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 Accompanied by: Self / Same As Patient Allergies No Known Allergies Allergy (Verified 08/02/23 15:21) Medication List - Last Reconciled 08/02/23 by Sonia Donovan MD PNV,calcium 12-dfmd-xdans acid 27 mg iron- 1 mg ( Vitamins Plus Low Iron) 1 tab PO DAILY thyroid (pork) ([place] Thyroid) 30 mg PO DAILY 90 days thyroid (pork) ([place] Thyroid) 90 mg PO DAILY 90 days Tobacco use date assessed: 08/02/23 Dental Screening Dental Screen Date: 08/02/23 Did you have a dental visit in the last 12 months?: Yes Did you have a dental problem in the last 6 months where you did not have access to dental care?: No Was dental information given to patient?: Patient has dentist HPI HPI Comments History of Present Illness Details This is a 42-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 Last TSH was normal and this will be repeated today. Vitamin-D levels were ordered. She is morbidly obese with a BMI of 41.5 and was advised to diet and exercise. She does have gluten sensitivity and I will test her for celiac disease. No chest pain or shortness of breath. PFS Medical History (Updated 08/02/23 @ 15:41 by Sonia Donovan MD) COVID-19 vaccine administered Obesity Vitamin D deficiency Hypothyroidism Surgical History History of placement of ear tubes History of appendectomy Family History (Updated 08/02/23 @ 15:25 by Sonia Donovan MD) Father History of heart disease Type 2 diabetes mellitus Maternal Grandmother History of colon cancer Maternal Grandfather History of colon cancer Paternal Grandmother History of heart disease Mother No problems noted. Social History Household Members: Significant Other Housing: House Are you a primary acute care nursing assistant to a significant other at home: No Alcohol intake: current Alcohol intake frequency: a few times a month Patient Tobacco Use Status: Never used Tobacco e-Cigarette/Vaping Use: Never Used Second Hand Smoke Exposure: No service: No Current occupational status: employed Current occupation: [employer] ([email or web address]) Current occupational exposures/hazards: No Cognitive needs: No Hearing needs: No Vision needs: Yes (glasses) Female Reproductive History Menstrual Age of Menarche: 15 Questionnaire PHQ-9 Over the last 2 weeks, how often have you been bothered by any of the following problems? 1. Little interest or pleasure in doing things: not at all 2. Feeling down, depressed, or hopeless: not at all 3. Trouble falling or staying asleep, or sleeping too much: not at all 4. Feeling tired or having little energy: not at all 5. Poor appetite or overeating: not at all 6. Feeling bad about yourself - or that you are a failure or have let yourself or your family down: not at all 7. Trouble concentrating on things, such as reading the newspaper or watching television: not at all 8. Moving or speaking so slowly that other people could have noticed. Or the opposite - being so fidgety or restless that you have been moving around a lot more than usual: not at all 9. Thoughts that you would be better off or of hurting yourself in some way: not at all Total score: 0 Depression Screening Interpretation: Negative Depression Screening Done: Yes 71070 - PHQ-9 Billing: Yes Source: Developed by Drs. Sandeep Shannon, Arlet Felder, Jair Sanchez and colleagues, with an educational rachael from [employer]. Thrive Questionnaire Date Thrive assessed: 08/02/23 I am a: Patient What is your living situation today?: I have a steady place to live Within the past 12 months, did the food you bought not last and you didn't have the money to get more?: Never true Within the past 12 months, did you worry whether your food would run out before you got money to buy more?: Never true Do you have trouble paying for medicines?: No Do you have trouble getting transportation to medical appointments?: No Do you have trouble paying your heating and electricity bill?: No Do you have trouble taking care of your child, family member or friend?: No Do you have trouble with day-to-day activities such as bathing, preparing meals, shopping, managing finances, etc.?: No Are you currently unemployed and looking for a job?: No Are you interested in more education?: No Please select the resources that you would like help with: None Currently or been in a relationship where the following occur: no concerns reported THRIVE Score: 0 AUDIT C Alcohol Use Questionnaire (AUDIT-C) 1. How often do you have a drink containing alcohol?: Never Total Score: 0 RYAN-7 AMB Questionnaire RYAN-7 Date RYAN - 7 assessed: 08/02/23 Feeling nervous, anxious, or on edge: 0 = Not at all Not being able to stop or control worryin = Not at all Worrying too much about different things: 0 = Not at all Trouble relaxin = Not at all Being so restless that it is hard to sit still: 0 = Not at all Becoming easily annoyed or irritable: 0 = Not at all Feeling afraid as if something awful might happen: 0 = Not at all Total RYAN-7 score (0-4 normal; 5-9 mild; 10-14 moderate; 15-21 severe): 0 Source: Developed by Drs. Sandeep Shannon, Arlet Felder, Jair Sanchez and colleagues, with an educational rachael from [employer]. RYAN-7 Assessment Billing RYAN-7 Assessment Tool: RYAN-7 Assessment 38085 Review of Systems Const All systems reviewed & are unremarkable except as noted in HPI and below Eyes Reports no additional complaints, Denies change in vision and Denies other visual disturbances Card Denies chest pain at rest, Denies chest pain with activity, Denies edema, Denies irregular heart rhythm, Denies claudication, Denies dyspnea, Denies dyspnea on exertion, Denies orthopnea, Denies paroxysmal nocturnal dyspnea and Denies slow heart rate Resp Denies cough, Denies dyspnea and Denies dyspnea on exertion Physical exam (Primary Care) Vital Signs: Last Vital Signs BP 112/80 08/02/23 15:05 BMI result Body Mass Index 41.5 Tobacco/Smoking Status: Tobacco use Status Tobacco use date assessed 08/02/23 08/02/23 15:11 Patient Tobacco Use Status Never used Tobacco 08/02/23 15:11 e-Cigarette/Vaping Use Never Used 08/02/23 15:11 PHQ-9: PHQ-9 Score PHQ-9: Total score 0 08/02/23 15:26 Depression Screening Interpretation: Negative Thrive Assessment: Date of Thrive Assessment Date Thrive assessed 08/02/23 08/02/23 15:11 Currently or been in a relationship where the following occur: no concerns reported Resp Effort & Inspection: normal respiratory effort Auscultation: clear to auscultation bilaterally Cardio Jugular venous distension: no JVD Rate: regular rate Rhythm: regular rhythm Heart sounds: S1 normal heart sound present and S2 normal heart sound present Extrem General: Yes full ROM Assessment and Plan Assessment & Plan (1) Vitamin D deficiency: Code(s): E55.9 - Vitamin D deficiency, unspecified Plan: Repeat vitamin-D levels. (2) Samuel's disease: Code(s): E06.3 - Autoimmune thyroiditis Plan: Continue thyroid medication. Repeat TSH. (3) Morbid obesity: Code(s): E66.01 - Morbid (severe) obesity due to excess calories Plan: Start diet and exercise. BMI goal is less than 30. Orders: Orders Vitamin D 25-OH Total Today E55.9 - Vitamin D deficiency, unspecified Thyroid Stimulating Hormone Today E03.9 - Hypothyroidism, unspecified Free T4 (Free Thyroxine) Today E03.9 - Hypothyroidism, unspecified Celiac Diagnostic Gliadin TTG Today Z91.018 - Allergy to other foods Coding Level of Care Code Est Pt Level 3 (75301) Diagnoses Vitamin D deficiency E55.9 Samuel's disease E06.3 Morbid obesity E66.01 Additional Codes RYAN-7 Assessment Billing - RYAN-7 Assessment Tool: RYAN-7 Assessment 22165 ([id number]) Time Spent (min) 20
== END 2023-08-02 15:37 | disposition home or self-care (01) ==
PROVIDERS: PCP Nurse Practitioner Family; Visit Provider Internal Medicine
DX: E55.9 Vitamin D deficiency, unspecified (principal); E66.01 Morbid (severe) obesity due to excess calories; Z68.42 Body mass index [BMI] 45.0-49.9, adult; E06.3 Autoimmune thyroiditis
CPT/HCPCS: 99213

== ENCOUNTER 2023-08-02 15:42 | Outpatient (REF) | payer OTHER, SELFPAY ==
[2023-08-02 17:54] LABS: Free T4 (Free Thyroxine) 0.68 ng/dL (0.71-1.85); Thyroid Stimulating Hormone 0.88 uIU/mL (0.32-4.0); Vitamin D 25-OH Total 30.8 ng/mL (>30)
[2023-08-04 07:53] LABS: Gliadin Deamidated IgA Ab 19.3 U/mL; Immunoglobulin A 140 mg/dL (47-310); Transglutaminase Ab IgG <1.0 U/mL; Transglutaminase IgA 55.1 U/mL
== END 2023-08-02 15:43 | disposition home or self-care (01) ==
LOC: HO.LAB 15:42
PROVIDERS: PCP Internal Medicine; Visit Provider Internal Medicine
DX: E03.9 Hypothyroidism, unspecified (principal); E55.9 Vitamin D deficiency, unspecified; Z91.018 Allergy to other foods
CPT/HCPCS: 36415; 82306; 82784; 84439; 84443; 86258; 86364

== ENCOUNTER 2023-09-18 17:31 | Emergency (ER) | payer OTHER, SELFPAY ==
--- NOTE | ~2023-09-18 | CT_ITS ---
EXAMINATION: CT facial bones wo IV con CLINICAL INFORMATION: ? jaw dislocation vs fracture COMPARISON: None TECHNIQUE: Imaging was performed from the skull base to vertex without intravenous administration of contrast. In addition, helical noncontrast CT imaging was acquired through the facial bones and source images were reviewed along with axial reconstructions and sagittal and coronal MPRs. This CT examination was performed using dose optimization techniques as appropriate, variously including the following: * Automated exposure control * Adjustment of mA and/or kV according to patient size (this includes techniques or standardized protocols for targeted exams where dose is matched to indication/reason for exam; i.e. extremities or head) Use of iterative reconstruction technique Total exam dose-length product 441 mGy-cm FINDINGS: No acute maxillofacial fractures are seen. The mandible, maxilla, pterygoid plates, nasal bones, zygomatic arches, paranasal sinus bowman, and bony orbits are intact. The frontal, maxillary, ethmoid, and sphenoid sinuses are well aerated. The uncinate process is normal bilaterally. The infundibula and middle meati are patent. There is a mild leftward nasal septal deviation. The mandibular heads are well-seated in the condylar fossa. The orbits demonstrate a normal appearance bilaterally. The globes are intact, and there are no suspicious findings to suggest retrobulbar hemorrhage. Imaged intracranial compartment is unremarkable. CT/CT facial bones wo IV con IMPRESSION: No acute fracture or dislocation of the maxillofacial bones.
[2023-09-18 17:34] VITALS: BP 147/99; PULSE 69; RESP 16; TEMP 36.4; O2SAT 100; BMI 40.1
--- NOTE | 2023-09-18 17:35 | ED.GENADULT ---
HPI - General Adult General Chief complaint: General Medical Stated complaint: ?Jaw dislocation Time Seen by Provider: 09/18/23 20:23 Source: patient Mode of arrival: ambulatory Limitations: no limitations History of Present Illness ED Provider: Dr. Shawna Kumar HPI narrative: Patient comes to the emergency room complaining of bilateral jaw pain. Patient states she was doing well until yesterday when she was taking her 2-year-old kid, the child accidentally hit the patient in the front of the mouth with his head. Since then, patient has had significant bilateral jaw pain. Patient states that she has no dental pain. Patient states that it hurts when she opens and closes her mouth. Related Data Previous Rx's ?Medication ?Instructions ?Recorded vitamin with calcium 1 tab PO DAILY #90 tabs 03/10/23 no.72-iron 27 mg-folic acid 1 mg tablet ( Vitamins Plus Low Iron) thyroid (pork) 30 mg tablet 30 mg PO DAILY 90 days #90 tabs 07/28/23 ([facility] Thyroid) thyroid (pork) 90 mg tablet 90 mg PO DAILY 90 days #90 tabs 07/28/23 ([facility] Thyroid) cyclobenzaprine 10 mg tablet 10 mg PO TID PRN muscle spasm #6 09/18/23 tabs diazepam 2 mg tablet 2 mg PO BEDTIME #1 tab 09/18/23 ketorolac 10 mg tablet 10 mg PO .B.i.d. PRN pain 3 days 09/18/23 #6 tabs Allergies Allergy/AdvReac Type Severity Reaction Status Date / Time No Known Allergies Allergy Verified 09/18/23 17:36 Review of Systems Review of Systems: Constitutional : No Weight loss, No Fever, No Chills, No Night Sweats, No Fatigue, No Malaise ENT/Mouth : No Hearing loss, No Ear Pain, No Nasal Congestion, No Sinus Pain, No Hoarseness, No sore throat, No Rhinorrhea, No Swallowing Difficulty Eyes: No Eye Pain, No Swelling, No Redness, No Foreign Body, No Discharge, No Vision Changes Cardiovascular : No Chest Pain, No SOB, No Dyspnea on Exertion, No Orthopnea, No Edema, No Palpitations Respiratory : No Cough, No Sputum, No Wheezing, No Smoke Exposure, No Dyspnea Gastrointestinal : No Nausea, No Vomiting, No Diarrhea, No Constipation, No abdominal Pain, No Hematochezia, No Melena Genitourinary : no irregular bleeding, No Dysuria, No Urinary Frequency, No Hematuria, No Urinary Incontinence, No Urgency, No Flank Pain, No Urinary Flow Changes, No Hesitancy Musculoskeletal : Complaining of bilateral jaw pain, No joint pain, No Myalgias, No Joint Swelling Skin : No Skin Lesions, No rash Neuro : No Weakness, No Numbness, No Paresthesias, No Loss of Consciousness, No Dizziness, No Headache Psych : No Anxiety/Panic, No Depression, No SI/HI/AH/VH, No Social Issues, Heme/Lymph: No Bruising, No Bleeding,No Lymphadenopathy Endocrine : No Polyuria, No Polydipsia, No Temperature Intolerance [facility] Past Medical History Medical History COVID-19 vaccine administered Obesity Vitamin D deficiency Hypothyroidism Surgical History History of placement of ear tubes History of appendectomy Family History Family History (Updated 08/02/23 @ 15:25 by Sonia Donovan MD) Father History of heart disease Type 2 diabetes mellitus Maternal Grandmother History of colon cancer Maternal Grandfather History of colon cancer Paternal Grandmother History of heart disease Mother No problems noted. Social History Social History Household Members: Significant Other Housing: House Are you a primary acute care assistant to a significant other at home: No Alcohol intake: current Alcohol intake frequency: a few times a month Patient Tobacco Use Status: Never used Tobacco e-Cigarette/Vaping Use: Never Used Second Hand Smoke Exposure: No Advance Directives: No Advance Directives Information Provided: No Do you have a plan to hurt others: No Plan service: No Current occupational status: employed Current occupation: [email or web address] Current occupational exposures/hazards: No Cognitive needs: No Hearing needs: No Vision needs: Yes (glasses) Physical Exam ED Vital Signs: Vital Signs - 24 hr 09/18/23 17:34 09/18/23 20:16 Temperature 97.6 F 98.2 F Pulse Rate 69 63 Respiratory Rate 16 16 Blood Pressure 147/99 H 132/86 Pulse Oximetry 100 100 Oxygen Delivery Method Room Air Room Air BMI result Body Mass Index 40.1 Const Other: Appearance: Alert. Oriented X3. No acute distress. Eyes: Pupils equal, round and reactive to light. ENT: Pharynx normal. Normal tone, normal teeth, bilateral tympanic membranes within normal limits. There is no clicking or dislocation of the jaws bilaterally. Neck: Normal inspection. Neck supple. No lymph nodes noted. No crepitus CVS: Normal heart rate and rhythm. Pulses normal. Normal S1 and S2 Respiratory: No respiratory distress. Breath sounds normal. No Wheezing. No rales Abdomen: Soft and nontender. No rigidity. No distention. Skin: Skin warm and dry. Normal skin color. Normal skin turgor. Extremities: No lower extremity edema. No Lacerations. No Rash Neuro: Oriented X 3. No motor deficit. No sensory deficit. Moving all extremities. No slurred speech. CN 2 through 12 grossly intact Psych: calm, cooperative, normal affect Course Course Course Narrative: This is a Rapid Medical Examination (RME) performed by Windy Michel PA-C in triage. Full HPI, ROS, assessment and treatment plan per primary provider in the Main ED. 42 yo female here for eval of bilateral jaw pain beginning yesterday. Patient reports tingling her 2-year-old yesterday when he accidentally kicked her bottom jaw, pushing upward. Patient reports immediate bilateral jaw pain. She has had difficulty opening her mouth and is concerned it may be dislocated. Thought the pain would resolve today. Taking Tylenol Motrin without relief. positive trismus on exam. speaking in complete sentences. in obvious discomfort Plan: imaging ordered Medical Decision Making Medical Decision Making MDM Narrative: I discussed the physical exam with the patient, likely patient has contusion versus reactivation of TMJ. Patient states that she has had TMJ pain in the past, it is similar. However, there is no significant clicking at this time. -patient was given 1 dose of IM Toradol. Patient is driving, so relaxants will be sent to her pharmacy to be taken at bedtime -CT scan report: No acute fracture or dislocation Differential Diagnosis Differential Diagnoses: The differential diagnosis associated with the presentation includes (TMJ, contusion, dental pain, otitis, otalgia) Lab Data Labs: Lab Results 09/18/23 Range/Units 17:45 Beta HCG, Quant < 2 mIU/mL Independent Interpretation I performed an independent interpretation of an: CT Scan Radiology Impression Discussion of test interpretation with radiology: I have reviewed the radiologist's reading. Radiologist Impression: FINDINGS: No acute maxillofacial fractures are seen. The mandible, maxilla, pterygoid plates, nasal bones, zygomatic arches, paranasal sinus obwman, and bony orbits are intact. The frontal, maxillary, ethmoid, and sphenoid sinuses are well aerated. The uncinate process is normal bilaterally. The infundibula and middle meati are patent. There is a mild leftward nasal septal deviation. The mandibular heads are well-seated in the condylar fossa. The orbits demonstrate a normal appearance bilaterally. The globes are intact, and there are no suspicious findings to suggest retrobulbar hemorrhage. Imaged intracranial compartment is unremarkable. CT/CT facial bones wo IV con IMPRESSION: No acute fracture or dislocation of the maxillofacial bones. Discharge Plan Discharge Clinical Impression: Jaw pain Patient Disposition: Home, Self-Care Instructions: Jaw Dislocation (ED) Additional Instructions: Please follow-up with your primary care physician tomorrow. If you have any worsening or new symptoms, please return to the emergency room or call 911 Prescriptions: New ketorolac 10 mg tablet 10 mg PO .B.i.d. PRN (Reason: pain) 3 Days Qty: 6 0RF Rx Instructions: maximum total duration of 5 days from all oral, intranasal, or parenteral formulations diazepam 2 mg tablet 2 mg PO BEDTIME Qty: 1 0RF cyclobenzaprine 10 mg tablet 10 mg PO TID PRN (Reason: muscle spasm) Qty: 6 0RF Rx Instructions: Do not mixed with diazepam No Action thyroid (pork) [[facility] Thyroid] 30 mg tablet 30 mg PO DAILY 90 Days Qty: 90 0RF thyroid (pork) [[facility] Thyroid] 90 mg tablet 90 mg PO DAILY 90 Days Qty: 90 0RF Vitamin Plus Low Iron 27 mg iron- 1 mg tablet 1 tab PO DAILY Qty: 90 4RF Print Language: Albanian
[2023-09-18 18:19] LABS: HCG Quantitative < 2 mIU/mL
[2023-09-18 20:16] VITALS: BP 132/86; PULSE 63; RESP 16; TEMP 36.8; O2SAT 100
[2023-09-18] MEDS: Ketorolac Tromethamine 60 MG/2 ML VIAL IM (21:10)
== END 2023-09-18 22:13 | disposition home or self-care (01) ==
PROVIDERS: Physician Assistant Medical; Emergency Provider Emergency Medicine; PCP Internal Medicine
DX: R68.84 Jaw pain (principal)
CPT/HCPCS: 36415; 70486; 84702; 96372; 99283; 99284; J1885

== ENCOUNTER 2023-12-20 14:14 | Outpatient (REF) | payer OTHER, SELFPAY ==
--- NOTE | ~2023-12-20 | MM_ITS ---
EXAMINATION: MM SCREENING DIGITAL BREAST TOMOSYNTHESIS, BILATERAL CLINICAL INFORMATION: Screening. Asymptomatic. COMPARISON: Mammography: Comparison is made with available priors TECHNIQUE: Digital breast mammography with tomosynthesis is performed in both the craniocaudal and mediolateral oblique views along with computer-aided detection (CAD). FINDINGS: There are scattered areas of fibroglandular density (ACR BI-RADS breast composition Category b). Bilateral upper outer quadrant focal asymmetries are stable on mammograms dating back for 1 year. Bilateral ultrasound follow-up was recommended and will be performed 12/27/2023. There are no significant masses, abnormal calcifications, or other abnormalities. MM/MM tomosynthesis screening BI IMPRESSION: No mammographic evidence of malignancy. ASSESSMENT: BI-RADS BI-RADS 2 - Benign Findings RECOMMENDATION: Routine annual mammography screening. 1 year F/U This examination should not preclude the clinical evaluation of a suspicious palpable abnormality. This patient's information was entered into a reminder system with a target due date for their next mammogram. Electronically signed by: Maria Luisa Crook DO 12/20/2023 03:15 PM EDT
== END 2023-12-20 14:15 | disposition home or self-care (01) ==
LOC: HO.MAMMO 14:14
PROVIDERS: PCP Internal Medicine; Visit Provider Internal Medicine
DX: Z12.31 Encounter for screening mammogram for malignant neoplasm of breast (principal)
CPT/HCPCS: 77063; 77067

== ENCOUNTER → 2023-12-20 14:30 | Outpatient (BNV) | payer OTHER, SELFPAY | PROVIDERS: PCP Internal Medicine; Visit Provider Internal Medicine | DX: Z12.31 Encounter for screening mammogram for malignant neoplasm of breast (principal) | CPT/HCPCS: 77063; 77067 ==

== ENCOUNTER 2023-12-27 07:53 | Outpatient (REF) | payer OTHER, SELFPAY ==
--- NOTE | ~2023-12-27 | US_ITS ---
EXAMINATION: US DIAGNOSTIC ULTRASOUND BREAST, BILATERAL CLINICAL INFORMATION: Follow-up bilateral probably benign densities seen 12/07/2022 ultrasound. Correlation made with baseline screening mammogram 11/20/2022. COMPARISON: Bilateral diagnostic ultrasound 06/07/2023, 12/07/2022. Screening mammography 12/20/2023, and baseline, 11/20/2022. TECHNIQUE: Ultrasound of both breasts is performed with real-time iniguez scale imaging and color Doppler. Attention right breast was given to the 12:00 axis, and attention left breast was given to the approximate 2:00 axis. FINDINGS: LEFT BREAST: -Small oval circumscribed hypoechoic mass in the 2:00 axis, 5 cm from the nipple, with good through transmission and no internal color vascularity, is essentially stable measuring 8 x 4 x 4 mm. This is most likely a benign fibroadenoma. Finding remains probably benign. No additional abnormalities left breast. RIGHT BREAST: -In the 12:00 axis left breast, 3 cm from the nipple, there is a stable or slightly smaller and unchanged 3 x 3 x 6 mm small mildly hypoechoic circumscribed fibroadenoma or complicated cyst with good through transmission, and remains probably benign. US/US breast BI limited mamm only IMPRESSION: Probably benign findings both breasts as detailed, unchanged. 12 month interval follow-up recommended targeted bilateral breast ultrasound when the patient is due for bilateral screening mammography in one year. This will establish two-year stability, and benignity. ASSESSMENT: BI-RADS 3: Probably Benign RECOMMENDATION: Diagnostic bilateral ultrasound in 12 months. Electronically signed by: Kevon Priest MD 12/27/2023 08:52 AM EDT
[2023-12-27 13:34] LABS: MANUAL DIFF FLAG NO
[2023-12-27 14:44] LABS: Basophils Percent Auto 0.2 % (0-2); Eosinophils Absolute Auto 0.1 X10*3/uL (0.0-0.4); Eosinophils Percent Auto 1.6 % (0-4); Hematocrit 39.5 % (37.0-47.0); Hemoglobin 13.5 g/dl (12.0-16.0); Imm Gran Abs Auto 0.01 X10*3/uL (0.00-0.03); Imm Gran Pct Auto 0.2 % (0.0-0.4); Lymphocytes Absolute Auto 1.8 X10*3/uL (1.2-4.9); Lymphocytes Percent Auto 32.2 % (20-40); Mean Corpuscular HGB Conc 34.2 g/dl (31.0-35.0); Mean Corpuscular Hemoglobin 30.1 pg (27.0-33.0); Mean Corpuscular Volume 88.2 fL (80.0-98.0); Mean Platelet Volume 9.8 fL (9.4-12.3); Monocytes Absolute Auto 0.3 X10*3/uL (0.1-1.2); Monocytes Percent Auto 5.5 % (2-11); Neutrophils Absolute Auto 3.3 x10*3/uL (2.0-8.3); Neutrophils Percent Auto 60.3 % (45-73); Platelet Count 270 X10*3/uL (160-400); Red Blood Count 4.48 X10*6/uL (4.20-5.50); Red Cell Distribution Width 12.7 % (11.0-16.0); White Blood Count 5.5 X10*3/uL (4.8-10.8)
[2023-12-27 14:51] LABS: Appearance Urine Clear; Color Urine Dark Yellow; Glucose Urine UA Negative (Negative); Leukocyte Esterase Urine Trace (Negative); Nitrite Urine Negative (Negative); Specific Gravity - Urine 1.025 (1.005-1.025); UMIC TRIGGER UACC YES; Urine Blood Negative (Negative); Urine Ketones Negative (Negative); Urine Protein Negative (Neg-Trace)
[2023-12-27 14:54] LABS: Bacteria Urine None Seen (None Seen); Hyaline Casts Urine 0-2 /LPF (0-2); RBC Urine 0-2 /HPF (0-2); WBC Urine 0-5 /HPF (0-5)
[2023-12-27 15:24] LABS: Alanine Aminotransferase 15 U/L (0-31); Albumin Level 4.4 g/dL (3.5-5.0); Alkaline Phosphatase 48 U/L (39-117); Anion Gap 12 (12-20); Aspartate Amino Transferase 15 U/L (5-31); Bilirubin Total 1.3 mg/dL (0.0-1.0); Blood Urea Nitrogen 12 mg/dL (9-16); Calcium 9.7 mg/dL (8.4-10.2); Carbon Dioxide 24 mmol/L (22-29); Chloride 107 mmol/L (96-108); Cholesterol 186 mg/dL (<200); Estimated Glomerular Filt Rate > 60; Glucose Random 87 mg/dL (60-115); HDL Cholesterol 59 mg/dL (>40); LDL Cholesterol Calculated 113 mg/dL (<100); Potassium 3.6 mmol/L (3.3-5.1); Sodium 139 mmol/L (135-145); Total Protein 7.3 g/dL (6.5-8.0); Triglycerides 72 mg/dL (<150)
[2023-12-27 15:35] LABS: Free T4 (Free Thyroxine) 0.81 ng/dL (0.71-1.85); Thyroid Stimulating Hormone 0.21 uIU/mL (0.32-4.0); Vitamin D 25-OH Total 40.6 ng/mL (>30)
[2023-12-27 15:47] LABS: Folate 15.8 ng/mL (> or = 4.0); Vitamin B12 414 pg/mL (200-900)
[2023-12-28 10:08] LABS: Triiodothyronine T3 Free 4.9 pg/mL (2.3-4.2)
[2024-01-08 12:12] LABS: Triiodothyronine T3 Reverse 10 ng/dL (8-25)
== END 2023-12-27 07:54 | disposition home or self-care (01) ==
LOC: HO.MAMMO 07:53
PROVIDERS: Absent Provider Internal Medicine; PCP Internal Medicine; Visit Provider Internal Medicine
DX: Z00.00 Encounter for general adult medical examination without abnormal findings (principal); E66.812 Obesity, class 2; E66.09 Other obesity due to excess calories; Z68.38 Body mass index [BMI] 38.0-38.9, adult; K90.0 Celiac disease; E03.9 Hypothyroidism, unspecified; E78.00 Pure hypercholesterolemia, unspecified; Z23 Encounter for immunization; R92.30 Dense breasts, unspecified
CPT/HCPCS: 36415; 76642; 80053; 80061; 81001; 82306; 82607; 82746; 84439; 84443; 84481; 84482; 85025; 90471; 90656; 96127; 99396

== ENCOUNTER → 2023-12-27 08:00 | Outpatient (BNV) | payer OTHER, SELFPAY | PROVIDERS: PCP Internal Medicine; Visit Provider Radiology Diagnostic Radiology | DX: N63.21 Unspecified lump in the left breast, upper outer quadrant (principal); N63.15 Unspecified lump in the right breast, overlapping quadrants; N60.21 Fibroadenosis of right breast | CPT/HCPCS: 76642 ==

== ENCOUNTER 2023-12-27 12:01 | Outpatient (AMB) | payer OTHER, SELFPAY ==
--- NOTE | 2023-12-27 12:39 | A.OFFPC_ITS ---
Vital Signs 12/27/23 12:41 Height 5 ft 4 in Weight 224 lb 8 oz BMI 38.5 BP 120/74 Blood Pressure Location Lt brachial Position Sitting Pulse 60 Pulse Source Pulse Oximeter Pulse Oximetry (%) 99 Oxygen Delivery Method Room Air Intake Visit Reasons: Annual PE Intake Note: Patient is here today for a physical. Canopy Inspector Required: No Life Skills Specialist: Not Required per policy Accompanied by: Self / Same As Patient Allergies No Known Allergies Allergy (Verified 12/27/23 12:40) Medication List - Last Reconciled 12/27/23 by Jania Yeh MD PNV,calcium 05-[id number] acid 27 mg iron- 1 mg ( Vitamins Plus Low Iron) 1 tab PO DAILY thyroid (pork) (Points Thyroid) 30 mg PO DAILY 90 days thyroid (pork) (Points Thyroid) 90 mg PO DAILY 90 days Tobacco use date assessed: 12/27/23 Dental Screening Dental Screen Date: 08/02/23 [facility] Medical History (Updated 12/27/23 @ 13:00 by Jania Yeh MD) Morbid obesity COVID-19 vaccine administered Obesity Vitamin D deficiency Hypothyroidism Surgical History History of placement of ear tubes History of appendectomy Family History (Updated 12/27/23 @ 13:03 by Jania Yeh MD) Father Type 2 diabetes mellitus History of heart disease Maternal Grandmother History of colon cancer Maternal Grandfather History of colon cancer Paternal Grandmother History of heart disease Mother No problems noted. Paternal Uncle History of heart disease Social History (Updated 12/27/23 @ 13:03 by Jania Yeh MD) Household Members: Significant Other Both parents involved: Yes Housing: House Are you a primary patient care assistant to a significant other at home: No Alcohol intake: current Alcohol intake frequency: a few times a month Comment: 2x a week 1 glass Patient Tobacco Use Status: Never used Tobacco e-Cigarette/Vaping Use: Never Used Second Hand Smoke Exposure: No service: No Current occupational status: employed Current occupation: [employer] Current occupational exposures/hazards: No Cognitive needs: No Hearing needs: No Vision needs: Yes (glasses) Female Reproductive History Menstrual Age of Menarche: 15 Questionnaire PHQ-9 Over the last 2 weeks, how often have you been bothered by any of the following problems? 1. Little interest or pleasure in doing things: not at all 2. Feeling down, depressed, or hopeless: not at all 3. Trouble falling or staying asleep, or sleeping too much: not at all 4. Feeling tired or having little energy: not at all 5. Poor appetite or overeating: not at all 6. Feeling bad about yourself - or that you are a failure or have let yourself or your family down: not at all 7. Trouble concentrating on things, such as reading the newspaper or watching television: not at all 8. Moving or speaking so slowly that other people could have noticed. Or the opposite - being so fidgety or restless that you have been moving around a lot more than usual: not at all 9. Thoughts that you would be better off or of hurting yourself in some way: not at all Total score: 0 Depression Screening Interpretation: Negative Depression Screening Done: Yes Source: Developed by Drs. Sandeep Shannon, Arlet Felder, Jair Sanchez and colleagues, with an educational rachael from [employer]. Thrive Questionnaire Date Thrive assessed: 12/27/23 I am a: Patient What is your living situation today?: I have a steady place to live Within the past 12 months, did the food you bought not last and you didn't have the money to get more?: Never true Within the past 12 months, did you worry whether your food would run out before you got money to buy more?: Never true Do you have trouble paying for medicines?: No Do you have trouble getting transportation to medical appointments?: No Do you have trouble paying your heating and electricity bill?: No Do you have trouble taking care of your child, family member or friend?: No Do you have trouble with day-to-day activities such as bathing, preparing meals, shopping, managing finances, etc.?: No Are you currently unemployed and looking for a job?: No Are you interested in more education?: No Please select the resources that you would like help with: None Currently or been in a relationship where the following occur: I choose not to answer THRIVE Score: 0 AUDIT C Alcohol Use Questionnaire (AUDIT-C) 1. How often do you have a drink containing alcohol?: 2-4 times a month 2. How many drinks containing alcohol do you have on a typical day when you are drinking?: 1 or 2 3. How often do you have six or more drinks on one occasion?: Never Total Score: 2 RYAN-7 AMB Questionnaire RYAN-7 Date RYAN - 7 assessed: 12/27/23 Feeling nervous, anxious, or on edge: 0 = Not at all Not being able to stop or control worryin = Not at all Worrying too much about different things: 0 = Not at all Trouble relaxin = Several days Being so restless that it is hard to sit still: 1 = Several days Becoming easily annoyed or irritable: 0 = Not at all Feeling afraid as if something awful might happen: 0 = Not at all Total RYAN-7 score (0-4 normal; 5-9 mild; 10-14 moderate; 15-21 severe): 2 Source: Developed by Drs. Sandeep Shannon, Arlet Felder, Jair Sanchez and colleagues, with an educational rachael from [employer]. Review of Systems Const Denies poor appetite and Denies weakness Eyes Denies no additional complaints ENT Reports Normal hearing present, Denies dizziness, Denies nasal congestion, Denies tinnitus and Denies sore throat Card Denies chest pain, Denies syncope, Denies rapid heart rate and Denies dyspnea Resp Denies cough and Denies dyspnea GI Denies change in stool character, Reports constipation, Denies diarrhea, Denies nausea and Denies vomiting Denies urinary frequency, Denies difficulty voiding and Denies dysuria Neuro Reports Normal hearing present, Denies confusion, Denies dizziness, Denies syncope and Denies weakness Psych Denies confusion Physical exam (Primary Care) Vital Signs: Last Vital Signs Pulse 60 12/27/23 12:41 BP 120/74 12/27/23 12:41 Pulse Ox 99 12/27/23 12:41 Oxygen Delivery Method Room Air 12/27/23 12:41 BMI result Body Mass Index 38.5 Tobacco/Smoking Status: Tobacco use Status Tobacco use date assessed 12/27/23 12/27/23 12:46 Patient Tobacco Use Status Never used Tobacco 12/27/23 13:03 e-Cigarette/Vaping Use Never Used 12/27/23 13:03 PHQ-9: PHQ-9 Score PHQ-9: Total score 0 12/27/23 12:56 Depression Screening Interpretation: Negative Thrive Assessment: Date of Thrive Assessment Date Thrive assessed 12/27/23 12/27/23 12:46 Currently or been in a relationship where the following occur: I choose not to answer Const General: No confusion Orientation/consciousness: No confusion HENMT Head: Yes normocephalic Ears: external ears normal and TM's normal bilaterally Face and sinus: Yes normal facial exam Mouth: moist mucous membranes Throat: Yes tonsils normal Eyes Conjunctivae: conjunctivae normal Pupils: Equal, round and reactive pupils present and Pupil accommodation reflex normal Direct Ophthalmoscopy: normal light reflex Neck Neck: No lymphadenopathy Thyroid: Thyroid normal Chest Chest palpation & inspection: normal inspection of the chest Resp Effort & Inspection: normal respiratory effort and no audible wheezes Auscultation: clear to auscultation bilaterally, no crackles, no wheezes and lung sounds not diminished Cardio Rate: regular rate Rhythm: regular rhythm Peripheral pulses: radial pulses present and dorsalis pedis present GI Palpation (GI): no masses Auscultation: normal bowel sounds and normoactive bowel sounds Rectal Exam - Female: deferred Skin General skin exam: no rashes or lesions noted Rashes: no rashes Neuro General: No confusion Cranial nerves: Yes Equal, round and reactive pupils present and Yes Normal hearing present Cognition (Neuro): normal cognition Gait exam (Neuro): Normal gait present Motor exam (neuro): 5/5 motor strength present throughout Deep tendon reflexes (DTR's): Right brachioradialis reflex intensity grade: 2+, Left brachioradialis reflex intensity grade: 2+, Right patellar reflex intensity grade: 2+ and Left patellar reflex intensity grade: 2+ Extrem General: No edema Office Procedures Flu Questionnaire Does the patient have a severe egg allergy?: No Does the patient have severe life threatening allergies?: No Does the patient have a fever or illness today?: No Has the patient ever had Guillain-Porter Syndrome?: No Has the patient ever had any past reaction to a flu shot?: No Immunizations Fluarix Triv [id number] (PF) 45 mcg (15 mcg x 3)/0.5 mL IM syringe Performing Provider: Jania Yeh MD Performing Location: [facility] [place] Adult Primary [facility] Administered by: YAN Valente on 12/27/23 12:52 Dose Route Admin Location Dispensed Lot Number Expiration Date NDC Pecan Cleaner 0.5 mL IM Left Deltoid 0.5 mL [id number] 09/18/24 04816-649-29 [employer] VIS Given Date VIS Provided VIS Publication Date 12/27/23 Single Vaccine 20 Eligibility Eligibility Date Funding Source Not [facility] Eligible 12/27/23 Private Coding Level of Care Code Est Pt Prev Care 40-64y(37695) Diagnoses Annual physical exam Z00.00 Class 2 obesity due to excess calories without serious comorbidity with body mass index (BMI) of 38.0 to 38.9 in adult E66.812; E66.09; Z68.38 Body mass index: BMI 38.0-38.9 Obesity classification: adult class 2 (BMI 35 - 39.9) Obesity type: due to excess calories Serious obesity comorbidity presence: without serious comorbidity Hypothyroidism, unspecified type E03.9 Hypothyroidism type: unspecified Celiac disease K90.0 Assessment & Plan Assessment & Plan (1) Annual physical exam: Code(s): Z00.00 - Encounter for general adult medical examination without abnormal findings Category: Medical Plan: Patient is advised to eat healthy, keep well hydrated, keep active and have adequate sleep. (2) Obesity: Code(s): E66.9 - Obesity, unspecified Category: Medical Qualifiers: Body mass index: BMI 38.0-38.9 Obesity classification: adult class 2 (BMI 35 - 39.9) Obesity type: due to excess calories Serious obesity comorbidity presence: without serious comorbidity Qualified Code(s): E66.812 - Obesity, class 2; E66.09 - Other obesity due to excess calories; Z68.38 - Body mass index [BMI] 38.0-38.9, adult Plan: Diet and exercise (3) Hypothyroidism: Code(s): E03.9 - Hypothyroidism, unspecified Category: Medical Qualifiers: Hypothyroidism type: unspecified Qualified Code(s): E03.9 - Hypothyroidism, unspecified Plan: Continue with thyroid medication but would require blood work (4) Celiac disease: Code(s): K90.0 - Celiac disease Category: Medical Plan: Patient has been trying to change her diet. Orders: Orders Influenza [id number] Immunization Today Z23 - Encounter for immunization Thyroid Stimulating Hormone Today E03.9 - Hypothyroidism, unspecified Free T4 (Free Thyroxine) Today E03.9 - Hypothyroidism, unspecified Triiodothyronine T3 Free Today E03.9 - Hypothyroidism, unspecified Comprehensive Met. Panel Today E03.9 - Hypothyroidism, unspecified Vitamin B12 and Folate Today E03.9 - Hypothyroidism, unspecified Lipid Panel Today E03.9 - Hypothyroidism, unspecified, E78.00 - Pure h ypercholesterolemia, unspecified Triiodothyronine T3 Reverse Today E03.9 - Hypothyroidism, unspecified Complete Blood Count Auto Diff Today E03.9 - Hypothyroidism, unspecified Vitamin D 25-OH Total Today E03.9 - Hypothyroidism, unspecified UA CC w/rflx Micro + Cult Today E03.9 - Hypothyroidism, unspecified, R30.0 - Dysuria Referrals Gastroenterology Referral K90.0 - Celiac disease
[2023-12-27 12:41] VITALS: BP 120/74; PULSE 60; O2SAT 99; BMI 38.5
== END 2023-12-27 13:13 | disposition home or self-care (01) ==
PROVIDERS: PCP Internal Medicine; Visit Provider Internal Medicine
DX: Z00.00 Encounter for general adult medical examination without abnormal findings (principal); E66.812 Obesity, class 2; E66.09 Other obesity due to excess calories; Z68.38 Body mass index [BMI] 38.0-38.9, adult; E03.9 Hypothyroidism, unspecified; K90.0 Celiac disease; Z23 Encounter for immunization

== ENCOUNTER 2024-03-27 08:58 | Outpatient (REF) | payer OTHER, SELFPAY ==
[2024-03-27 11:53] LABS: Vitamin D 25-OH Total 32.3 ng/mL (>30)
[2024-03-27 11:55] LABS: Free T4 (Free Thyroxine) 0.82 ng/dL (0.71-1.85); Thyroid Stimulating Hormone 2.38 uIU/mL (0.32-4.0)
== END 2024-03-27 08:59 | disposition home or self-care (01) ==
LOC: HO.LAB 08:58
PROVIDERS: Absent Provider Internal Medicine; PCP Internal Medicine; Visit Provider Internal Medicine
DX: E03.9 Hypothyroidism, unspecified (principal); E55.9 Vitamin D deficiency, unspecified
CPT/HCPCS: 36415; 82306; 84439; 84443

== ENCOUNTER 2024-04-17 14:14 | Outpatient (AMB) | payer OTHER, SELFPAY ==
--- NOTE | 2024-04-17 14:27 | A.OFFVIS_ITS ---
Vital Signs 04/17/24 14:28 Height 5 ft 4 in Weight 220 lb 7.396 oz BMI 37.8 BP 118/76 Blood Pressure Location Lt brachial Position Sitting Pulse 94 Pulse Source Pulse Oximeter Pulse Oximetry (%) 97 Oxygen Delivery Method Room Air Intake Visit Reasons: K90.0 - Celiac disease Intake Note: NEW PATIENT for Celiac consult Prior hx of colo/egd? Neither. Chief Complaint; With gluten avoidance, pt does not experience any sx. Pt is confirmed celiac via blood test. Allergies No Known Allergies Allergy (Verified 04/17/24 14:31) HPI HPI K90.0 - Celiac disease: Details: HPI 43 yr old f with hashimotos thyroiditis here for assessment She was recently checked for celiac -routine and v high titers per labs she had noted that if she ate gluten she would feel terrible for last 5 yrs she has diarrhea if eats gluten she has nausea if she eats gluten no blood in the stool x2 grandparents with colon cancer, and mother had colon polyps ROS: Constitutional : No Weight loss, No Fever, No Chills ENT/Mouth : No sore throat, No Rhinorrhea Eyes: No Swelling, No Redness Cardiovascular : No Chest Pain, No SOB, No Edema Respiratory : + Cough, No Sputum, No Wheezing Gastrointestinal : see HPI Genitourinary : NO Dysuria, No Urinary Frequency, No Hematuria, No Urgency Musculoskeletal : + joint pain if eats gluten, No Myalgias, No Joint Swelling Skin : No Skin Lesions, No rash Neuro : No Weakness, No Numbness, No Dizziness, No Headache Psych : No Anxiety/Panic, No Depression Heme/Lymph: No Bruising, No Lymphadenopathy Endocrine : No Polyuria, No Polydipsia All other systems reviewed and are negative. Medical History Morbid obesity COVID-19 vaccine administered Obesity Vitamin D deficiency Hypothyroidism Surgical History History of placement of ear tubes History of appendectomy Family History Father Type 2 diabetes mellitus History of heart disease Maternal Grandmother History of colon cancer Maternal Grandfather History of colon cancer Paternal Grandmother History of heart disease Mother No problems noted. Paternal Uncle History of heart disease Social History Household Members: Significant Other Both parents involved: Yes Housing: House Are you a primary career professional to a significant other at home: No Alcohol intake: current Alcohol intake frequency: a few times a month Comment: 2x a week 1 glass Patient Tobacco Use Status: Never used Tobacco e-Cigarette/Vaping Use: Never Used Second Hand Smoke Exposure: No service: No Current occupational status: employed Current occupation: [employer] Current occupational exposures/hazards: No Cognitive needs: No Hearing needs: No Vision needs: Yes (glasses) EXAM: GENERAL: The patient is well developed and nontoxic. VITAL SIGNS:see workflow HEENT: Nonicteric sclerae, PERRLA, EOMI. Oropharynx clear. Moist mucous membranes. Conjunctivae appear well perfused. No thyroid mass. CHEST: Chest wall is nontender. HEART: Regular rate and rhythm without murmurs. LUNGS: Clear to auscultation bilaterally. ABDOMEN: Soft, positive bowel sounds, nontender, no organomegaly.no flank tenderness SKIN: No rash, no excessive bruising, petechiae, or purpura. NEUROLOGIC: Cranial nerves II-XII intact without motor/sensory deficit. Psych: normal affect A/P: 1/ celiac disease 2/ FH of crc with x 2 second deg relatives with CRC PLAN: 1/ EGD and colo 2/ advised on multi vitamin and vit D supplemenr 3/ b12 and folate were nml 4/ nutrition consult 5/ advised on risk of osteporosis --periodic dexa scan [facility] Medical History Morbid obesity COVID-19 vaccine administered Obesity Vitamin D deficiency Hypothyroidism Surgical History History of placement of ear tubes History of appendectomy Family History Father Type 2 diabetes mellitus History of heart disease Maternal Grandmother History of colon cancer Maternal Grandfather History of colon cancer Paternal Grandmother History of heart disease Mother No problems noted. Paternal Uncle History of heart disease Social History Household Members: Significant Other Both parents involved: Yes Housing: House Are you a primary career professional to a significant other at home: No Alcohol intake: current Alcohol intake frequency: a few times a month Comment: 2x a week 1 glass Patient Tobacco Use Status: Never used Tobacco e-Cigarette/Vaping Use: Never Used Second Hand Smoke Exposure: No service: No Current occupational status: employed Current occupation: [employer] Current occupational exposures/hazards: No Cognitive needs: No Hearing needs: No Vision needs: Yes (glasses) Female Reproductive History Menstrual Age of Menarche: 15 Physical Exam Vital Signs: Last Vital Signs Pulse 94 04/17/24 14:28 BP 118/76 04/17/24 14:28 Pulse Ox 97 04/17/24 14:28 Oxygen Delivery Method Room Air 04/17/24 14:28 BMI result Body Mass Index 37.8 Assessment & Plan Assessment & Plan (1) Celiac disease: Code(s): K90.0 - Celiac disease Category: Medical Plan: as above Orders: Referrals Car Wash Attendant Nutrition Referral K90.0 - Celiac disease Medications: New sodium,potassium,mag sulfates 17.5-3.13-1.6 gram (Suprep Bowel Prep Kit) DILUTE; drink 1/2 at 6-8 pm and half at 11 PM- 1AM 354 mL 0RF Coding Level of Care Code New Pt Level 4 (29390) Diagnoses Celiac disease K90.0
[2024-04-17 14:28] VITALS: BP 118/76; PULSE 94; O2SAT 97; BMI 37.8
--- OUTSIDE RECORDS SUMMARY | 2024-04-17 18:45 | XMS_ITS | Data Portability ---
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 ? ? approx 2# weight loss since last MNT session, 15# overall.? ? ? Agrees weight loss slowing down, and she wants to improve some of her food choices. She continues to consume a portion of her caloric intake from caloric beverages, though states much less than in the past. Late night meals with boyfriend pose a challenge d/t quantity of food and his preparation methods (higher fat).? ? ? She will try to work with him on making changes, and try some simple approaches to adding in lower calorie foods (frozen veggies, or quick salads- he typically does not include veggies when he cooks) INSTRUCTION PROVIDED TODAY: - Weighing and measuring foods: a scale can be used to weigh protein foods- an accurate weight is based on the cooked weight of meat, chicken, fish, etc.? ? ? Meats that have a bone: remove bone, trim the meat before weighing. Scales can also be used to weigh bread products: for instance- one ounce of bread is typically 80 calories.? ? ? Homemade sliced bread can be weighed, and then the calories calculated: 1.5 oz slice would be 120 calories, etc. - Healthy snacking:? ? ? healthy protein, grain, fruit and? ? ?veg? ? ?snacks Handout: Thumbs Up for Healthy Food Choices [email or web address] Not available 01/02/2013 14:10:38 01/23/2013 01/23/2013 ASSESSMENT SUMMARY: Approx 2# weight loss x month, 15.6# total.? ? ? She is averaging about 1/2# per week, and agrees the hypothyroid dx, as well as the limited amount of physical activity is slowing down the weight loss process.? ? ? Concerned about the holiday meals at other people's homes- variety and quantity of high calorie foods. INSTRUCTION PROVIDED TODAY: - Holiday eating tips: how to manage calories, mindless eating that can occur at parties, etc.? ? ? (plus Handouts on Holiday Eating, low calorie dessert recipes). - Alternative types of exercise in addition to walking outdoors in winter: join a gym, walk in the mall where you work; exercise DVD's. [email or web address] Not available 01/23/2013 15:34:59 Plan of Treatment Reminders Order Date Submit Date Provider Last Modified By Organization Details Last Modified Time Details Appointments None recorded. Lab None recorded. Referral physical therapist referral 2012 013 [email or web address] [facility] (Imaging), [address] , [place], [address], 3 10:04:38 general surgeon referral - lesion on scalp- epidermal inclusion cyst 2013 014 kingston Weaver, [address] [facility], [facility] [address], [place], [address], 5 08:11:12 Procedures None recorded. Surgeries None recorded. Imaging None recorded. Medication Orders levothyroxi ne 100 mcg tablet 2013 014 [facility]us [id number] [facility] [employer], [address] [place], [address], 4 09:30:26 Patient TargetsNo targets recorded. Patient Instructions Encounter Date Encounter Id Patient Instructions Last Modified By Organization Details Last Modified Time 12/26/2012 [id number] GOALS: -? ? ? Eat supper meal earlier: bring food to work to eat sooner, before you return home. RECOMMENDATIONS: - I like your idea to purchase a mini crock pot to reheat meals at work. - When you find the time, try to set up the [employer] program so it can send RD your daily food diary by email. - Smoothies: can be very nutritious, and you can get in all your fruits for the day; spread it out during the day if you make a large quantity. Education plan: follow up in 4 weeks. [email or web address] Not available 01/02/2013 14:08:40 01/11/2013 [id number] plantar fasciitis: care instructions [email or web address] Not available 01/11/2013 08:28:31 01/23/2013 [id number] GOALS:? ? ? (continued) -? ? ? Eat supper meal earlier: bring food to work to eat sooner, before you return home. [email or web address] Not available 01/23/2013 15:46:18 - I like your ideas to get a thermos to bring hot food to work and eat a meal there - At holiday parties- try to position yourself away from the food; nurse a low calorie drink like V8 juice of [employer]; offer to bring a low-calorie item or 2 to the meal like a veggie platter and low calorie dip - look up low calorie food items on internet like diet egg nog recipe . - Try to increase your physical activity: do something most days so that you can burn calories more efficiently. Education plan: will wait until after holidays to followup [email or web address] Not available 01/23/2013 15:46:18 04/12/2013 [id number] learning about mood disorders [email or web address] Not available 04/13/2013 12:36:05 received [facility] records afer the visit- which indicated she took 20 pills of motrin 200 mg. does not appear BMP was done.? ? ? patient had no complaints related to kdineys or GI. [email or web address] Not available 04/12/2013 09:32:32 01/31/2014 [id number] Well Visit, Ages 18 to 65: Care Instructions [email or web address] Not available 01/31/2014 09:30:25 Reason for Referral Referring Physician: Viet Le, Family Medicine, Encounter Date: 01/11/2013 General Surgeon Referral for Epidermoid cyst of skin lesion on scalp- epidermal inclusion cyst Referring Physician: Enrique Vazquez, Family Medicine, Encounter Date: 01/31/2014 Results Created Date Observation Date Name Description Value Unit Range Abnormal Flag Note LastModifiedBy Organization Detail LastModifiedTime Result Notes None recorded. Problems Name Problem SNOMED Code Status Onset Date Resolution Date Notes Provider Name and Address Organization Details Recorded Time Obesity 545535438 Active Enrique Jeongcolo D.O. [address] [place] [address], [phone], [facility] 4 09:30:25 Hypothyroidism 43700745 Active Monique Neville null, [facility] 6 14:15:00 Major depressive disorder 147487107 Active Enrique Jean-Paulcolo D.O. [address] [place] [address], [phone], [facility] 4 21:33:26 Problem Notes None recorded. Procedures Surgical History Date Name Laterality Status Provider Name and Address Organization Details Recorded Time 4 Suture/stapl e Removal completed Enrique Jeongcolo D.O. [address] [place] [address], [phone], [facility] 04/12/2013 09:26:32 Imaging Results None recorded. Procedure Notes None recorded. Medical Equipment None Reported. Allergies No known drug allergies Medications Name Sig Start Date Stop Date Status Note LastModified by Organization Details LastModified Time levothyroxin e 75 mcg tablet TAKE ONE TABLET BY MOUTH ONE TIME DAILY 2013 active Last PHA 08/01/12, upcoming PHA 11/06, last labs 09/19 Not Available Not Available Not Available levothyroxin e 100 mcg tablet TAKE ONE TABLET BY MOUTH ONE TIME DAILY 2014 active LAST PHA 01/31/14 Not Available Not Available Not Available Seasonique 0.15 mg-30 mcg (84)/10 mcg(7) tablets,3 month dose pack Take 1 tablet every day by oral route. active Not Available Not Available No t Available Vitals Date Recorded Body weight Provider Name an d Address Organization Details Last Updated DateTime 12/26/2012 38444.074061 g Latoya Vick, RIVERN, LDN, CDCES [address] [place] [address], [phone], [facility] 12/26/2012 10:42:23 Date Recorded Body height Body weight Body mass index (BMI) Body temperature Heart rate Systolic blood pressure Diastolic blood pressure Provider Name and Address Organization Details Last Updated DateTime 3 162.56 cm 31293.3 00872 g 37.3 kg/m2 98.2 [degF] 66 /min 102 mm[Hg] 80 mm[Hg] Thea Eyadstefanie [facility] 3 08:03:15 Date Recorded Body weight Provider Name an d Address Organization Details Last Updated DateTime 01/23/2013 02199.594448 g Latoya Vick, HARRIET, FARHATN, [address], [address], [facility] 01/23/2013 13:37:55 Date Recorded Body weight Body height Heart rate Body mass index (BMI) Systolic blood pressure Diastolic blood pressure Provider Name and Address Organization Details Last Updated DateTime 4 36882.2 1296 g 162.56 cm 110 /min 35.7 kg/m2 118 mm[Hg] 58 mm[Hg] Kandace Sparrow LPN [facility] 4 09:00:13 Date Recorded Body weight Heart rate Body mass index (BMI) Body height Systolic blood pressure Diastolic blood pressure Provider Name and Address Organization Details Last Updated DateTime 4 920378. 137813 g 72 /min 38.1 kg/m2 162.56 cm 122 mm[Hg] 78 mm[Hg] Kandace Sparrow LPN [facility] 4 09:07:01 Social History Question Answer Notes LastModified by Organizat ion Details LastModified Time Tobacco Smoking Status Never Smoker Anastasiia Gama LPN [facility] 08/01/2012 14:32:46 What Is Your Level Of Alcohol Consumption? Occasional Information not available 01/31/2014 What Is Your Level Of Caffeine Consumption? Moderate [email or web address] Information not available 08/01/2012 What Type Of Diet Are You Following? REGULAR No Red Meat [email or web address] Information not available 08/01/2012 What Is Your Occupation? [employer]- [employer] [place] [email or web address] Information not available 01/31/2014 How Many Days In The Past Year Have You Had A Heavy Drinking Consumption (4+ Female, 5+ Male)? 1 Information not available 01/31/2014 Are There Any Guns Present In Your Home? No Information not available 08/01/2012 Live Alone Or With Others? With Others [email or web address] Information not available 08/01/2012 Does The Patient Have Difficulty Speaking Bulgarian? No [email or web address] Information not available 08/01/2012 Does The Patient Have Difficulty Reading Bulgarian? No [email or web address] Information not available 08/01/2012 Patient Has Health Care Proxy Signed And In Chart No Form Given To Patient 01/31/14 Information not available 01/31/2014 Marital Status Single [email or web address] Informatio n not available 08/01/2012 Mosquito Repellent Used Routinely Yes Information not available 08/01/2012 How Many Children Do You Have? 0 [email or web address] Information not available 08/01/2012 Seat Belts Used Routinely Yes [email or web address] Information not available 08/01/2012 Are You Sexually Active? No Information not available 01/31/2014 Smoke Alarm In Home Yes [email or web address] Information not available 08/01/2012 General Stress Level Medium Information not available 01/31/2014 Do You Use Sunscreen Routinely? Yes [email or web address] Information not available 08/01/2012 Sex: Unknown Functional Status None recorded. Mental Status None recorded. Family History Relationship Description Onset Age of this Age Resolved Age Notes LastModified by Organization Details LastModified Time Father Myocardial infarction 45 [email or web address] Not available 01/31 09:27:21 Father Diabetes mellitus [email or web address] Not available 2013 09:27:21 Maternal Grandfather Malignant tumor of colon 76 [email or web address] Not available 2013 09:27:21 Maternal Grandmother Malignant tumor of colon 53 tfurcolo Not available 2013 09:27:21 Notes:Paternal uncle had do uble bypass at 35 yo Medical History Condition Response Hypothyroid Y Suicide Attempt Y Gynecological History Statement/Question Response Menses Monthly N Obstetrics History GPAL:G 0 P 0 0 0 0 Immunizations Vaccine Type Date Status Note Provider Nam e and Address Organization Details Recorded Time Tdap 08/02/2012 completed Not Available [facility] 04/08/2019 02:16:05 Influenza, split virus, trivalent, PF 01/31/2014 completed Not Available [facility] 2019 02:35:42 Past Encounters Encounter ID Performer Location Encounter Start Date Encounter Closed Date Diagnosis/Indication Diagnosis SNOMED-CT Code Diagnosis ICD10 Code Diagnosis Note [id number] Nasreen [place]y [place] , [facility] [place] [address] [place] [address] 08/01/2012 14:17:47 08/01/2012 15:31:[id number] [place] [address] 09/19/2012 13:27:03 09/19/2012 14:43:21 [id number] [address] [place] [address] 11/18/2012 10:19:28 11/18/2012 11:42:07 Obesity 351560641 [id number] [address] [place] [address] 12/26/2012 10:21:07 12/26/2012 12:00:33 Obesity 941512902 [id number] Deana Singh [place] [facility] [place] [address] [place] [address] 01/11/2013 07:52:44 01/11/2013 08:28:38 Plantar fasciitis 682354453 Taped today. Take ibuprofen (200mg pills) 3 pills, 3 times a day. Or naproxen (Aleve) 220mg pills, 2 pills twice a day. Ice roller. Book with physical thetrapy. [id number] [address] [place] [address] 01/23/2013 13:24:27 01/23/2013 14:38:38 Obesity 035403504 [id number] LUIS Garza, [facility] [place] [address] [place] [address] 04/12/2013 08:25:38 04/12/2013 09:25:47 Laceration of wrist 726031406 removed elmer from forearm. tolerated well. no sign of redness or infection Depressive disorder 16364994 suicidal attemtp- slit her wrist 1 week ago after break up from [address] [facility] ip Hypothyroidism 21160601 [id number] Fanny MILLS [facility] [place] [address] [place] [address] 01/31/2014 08:43:45 01/31/2014 09:24:54 Hypothyroidism 96905434 tsh 4- feels better when tsh around 1-2. will increase dose to 100 dose change- will repeat tsh in 3 months Adult heal th examination [id number] see Risk Assessment and Lifestyle Change Counseling section above Counseling 056421490 Influenza vaccine needed 2071338738 106 Epidermoid cyst of skin 372989668 scalp lesion, has been there for a long time, more itchy- would like removed Obesity 143106335 bmi 38 encouraged increased exercise Health Concerns Section Related Observation LastModified by Organization Detai ls LastModified Time None Recorded Concern Status LastModified by Organization Details LastModified Time None Recorded Advance Directives Directive None Recorded Payers Encounter Date Sequence Insurance Name Policy Number Policy Cardenas Covered Member ID Cardenas Member ID Guarantor Name 12/26/2012 1 [employer] (POS II) [id number] Mimi Karla Vanessa [id number] 2 Mimi Vanessa 01/11/2013 1 [employer] [place] (POS II) [id number] Mimi M Vanessa [id number] Mimi Vanessa 01/23/2013 1 [employer] (POS II) [id number] Mimi M Vanessa [id number] Mimi Vanessa 04/12/2013 2 *SELF PAY* Artur nnie Vanessa 04/12/2013 1 [facility] (O) [id number] Mimi M Vanessa [id number] Mimi Vanessa 01/31/2014 1 [facility] (O) [id number] Mimi Vanessa [id number] Mimi Vanessa Notes Date Note Type Note Provider Name and Address Organization Details Recorded Time 01/11/2013 text/html on her feet a lo t for work/commute. now 4 days pain in arch of RT foot. no discrete trauma though. ice/asa some help. Moise Le PA-C [address] [place] [address], [phone], [facility] 01/11/2013 08:19:46 04/12/2013 text/html breakup with boyfriend of 8 years 1 week ago. slit her wrist in desperate attempt, felt overwhelmed over the past week has been at her prents and moving out of shared housing with boyfriend today. still sad, weepy. no longer suicidal, regrets her action. elmer to rigth wrist, clean, dry, no sign of drainage. no fevers mostly just feels itchy Enrique Vazquez D.O. [address] [place] [address], [phone], [facility] 04/12/2013 09:32:41 OBGyn Episode No OBEpisode recorded.
--- OUTSIDE RECORDS SUMMARY | 2024-04-17 18:45 | XMS_ITS | Clinical Summary ---
Author Organization [facility] Address [address] [place] [address] Care Team Providers Care Discovery Manager Name Role Phone Evelyne Ring MD Primary Care Provider Surgical History Surgery Date Site/Laterality Comments OTHER SURGICAL HISTORY PROCEDURE: DENIES PREVIOUS SURGERY Medical History Medical History Date Comments Hypothyroidism due to Hashim jonnie's thyroiditis DX:Hypothyroidism due to Has himoto's thyroiditis Social History Tobacco Use Types Packs/Day Years Used Date Smoking Tobacco: Never Smokeless Tobacco: Never Sex and Gender Information Value Date Recorded Sex Assigned at Not on file Gender Identity Not on file Sexual Orientation Not on file Obstetrics History Plan of Treatment Health Maintenance Due Date Last Done Comments Breast Cancer Screening 1982 DTaP,Tdap,and Td Vaccines (1 - Tdap) 2001 Hepatitis B Vaccines (1 of 3 - 19+ 3-dose series) 2001 Cervical Cancer Screening: P ap Smear 11/20/2003 COVID-19 Vaccine (2023-2 5 season) 2023 Influenza Vaccine (#1) 2023 HIB Vaccines Aged Out No longer eligi ble based on patient's age to complete this topic HPV Vaccines Aged Out No longer eligi ble based on patient's age to complete this topic Hepatitis A Vaccines Aged Out No long er eligible based on patient's age to complete this topic IPV Vaccines Aged Out No longer eligi ble based on patient's age to complete this topic MMR Vaccines Aged Out No longer eligi ble based on patient's age to complete this topic Meningococcal ACWY Vaccine Aged Out N o longer eligible based on patient's age to complete this topic Pneumococcal Vaccine: Pediat rics (0 to 5 Years) and At-Risk Patients (6 to 64 Years) Aged Out No longer eligible b ased on patient's age to complete this topic RSV Immunization Patients Un antonio 20 months Aged Out No longer eligible b ased on patient's age to complete this topic Varicella Vaccines Aged Out No longer eligible based on patient's age to complete this topic Care Teams Discovery Manager Relationship Specialty Start Date End Date Evelyne Ring MD [address] [place] [address] PCP - General Internal Medicine 10/04/20
== END 2024-04-17 15:13 | disposition home or self-care (01) ==
PROVIDERS: PCP Internal Medicine; Visit Provider Internal Medicine Gastroenterology
DX: K90.0 Celiac disease (principal)
CPT/HCPCS: 99204

== ENCOUNTER → 2024-04-17 14:14 | Outpatient (BNVA) | payer OTHER, SELFPAY | PROVIDERS: PCP Internal Medicine; Visit Provider Internal Medicine Gastroenterology | DX: K90.0 Celiac disease (principal) | CPT/HCPCS: 99202 ==

== ENCOUNTER 2024-05-15 09:20 | Outpatient (AMB) | payer OTHER, SELFPAY ==
--- NOTE | 2024-05-15 09:30 | A.OFFVIS_ITS ---
VS Expanded 05/15/24 09:32 05/15/24 09:36 Height 5 ft 4 in 5 ft 4 in Weight 222 lb 3.615 oz 222 lb BMI 38.1 38.1 Intake Visit Reasons: Celiac disease Allergies No Known Allergies Allergy (Verified 04/17/24 14:31) Nutrition Presentation Details: Pt presents for MNT for Celiac disease Pt reports working on choosing gluten free food options and working on eliminating cross contamination Challenges with skipping meals while working on weight loss BS Monitoring Most Recent Diabetes Results: Cholesterol 186 mg/dL (<200) 12/27/23 HDL Cholesterol 59 mg/dL (>40) 12/27/23 Triglycerides 72 mg/dL (<150) 12/27/23 Creatinine 0.74 mg/dL (0.5-1.4) 12/27/23 Blood Urea Nitrogen 12 mg/dL (9-16) 12/27/23 Sodium 139 mmol/L (135-145) 12/27/23 Potassium 3.6 mmol/L (3.3-5.1) 12/27/23 Chloride 107 mmol/L (96-108) 12/27/23 Carbon Dioxide 24 mmol/L (22-29) 12/27/23 Calcium 9.7 mg/dL (8.4-10.2) 12/27/23 AST 15 U/L (5-31) 12/27/23 ALT 15 U/L (0-31) 12/27/23 Total Protein 7.3 g/dL (6.5-8.0) 12/27/23 Albumin 4.4 g/dL (3.5-5.0) 12/27/23 GYK-Kplzxjy-Xl.Jeor Equation Height: 5 ft 4 in Weight: 222 lb Resting Metabolic Rate: 1659.25 Calculated Activity Level: Sedentary Calories Needed to Maintain Weight: 1990.10 Diagnosis Nutrition problem #1: food nutri know defi As related to (etiology) #1: diagnosis As evidenced by (sign/symptom) #1: knowledge deficit of diet [facility] Medical History Morbid obesity COVID-19 vaccine administered Obesity Vitamin D deficiency Hypothyroidism Surgical History History of placement of ear tubes History of appendectomy Family History Father Type 2 diabetes mellitus History of heart disease Maternal Grandmother History of colon cancer Maternal Grandfather History of colon cancer Paternal Grandmother History of heart disease Mother No problems noted. Paternal Uncle History of heart disease Social History Household Members: Significant Other Housing: House Are you a primary lpn care manager to a significant other at home: No Alcohol intake: current Alcohol intake frequency: a few times a month Comment: 2x a week 1 glass Patient Tobacco Use Status: Never used Tobacco e-Cigarette/Vaping Use: Never Used Second Hand Smoke Exposure: No service: No Current occupational status: employed Current occupation: [employer] Current occupational exposures/hazards: No Cognitive needs: No Hearing needs: No Vision needs: Yes (glasses) Female Reproductive History Menstrual Age of Menarche: 15 Assessment & Plan Assessment & Plan (1) Celiac disease: Code(s): K90.0 - Celiac disease Category: Medical Plan: Wt: 100 Kg ( 05/16 ) Est kcal needs as per MSJ: 2000 (40% carb, 30% protein/fat) Est fluid needs as per 25-30 ml/d: 2500 Est prot per day as per 1 g/kg bw: 100 Recommend fiber intake : 8-10 g per day and gradually increase to 25-28 g per day for women and 35-38 g for men or as tolerated Recommend sodium intake per day : less than 2000 mg Educated patient on: ( R = reviewed V = verbalizes understanding N/R = needs review N/A = not applicable * Food sources of carbohydrate, adequate serving sizes and its role in various health conditions: R V N/R * Differences between complex carbohydrates a simple carbohydrates, role of fiber in diet: R * Lean protein sources of foods: R * Differences between types of fats and role in diet (mono on saturated fat fatty acids, saturated fatty acids, trans fats): R V N/R * Food sources of sodium in salt and healthy modifications for heart health in kidney health: R V R/V * Vitamins and minerals, choose fortified gluten free options: R * Healthy plate method concept: R V N/R * Physical activity: Benefits a precaution: R V N/R * Patient Instructions: Try meal replacement - see list of options , in place of skipping meals Have a fruit with peanut butter as a snack Coding Level of Care Code Nutr Indiv Intake (80806) Diagnoses Celiac disease K90.0 Time Spent (min) 30
[2024-05-15 09:32] VITALS: BMI 38.1
--- OUTSIDE RECORDS SUMMARY | 2024-05-15 10:00 | XMS_ITS | Data Portability ---
Author Organization [facility], [facility] Address [address] [place] [address] Care Team Providers Care Stave Planer Tender Name Role Phone ENRIQUE PARKER MD Primary Care Provider ENRIQUE PARKER Primary Care Provider Assessment Encounter Date Assessment Date Assessment LastModified [...] Appointments None recorded. Lab None recorded. Referral general surgeon referral - lesion on scalp- epidermal inclusion cyst 2013 014 [place], [address] [facility] [address], [address], 5 08:11:12 physical therapist referral 2012 013 [email or web address] en1 [facility] [address], [place], [address], 3 10:04:38 Procedures None recorded. Surgeries None recorded. Imaging None recorded. Medication Orders levothyroxi ne 100 mcg tablet 2013 014 [facility] [id number] [facility] [employer], [address] [place], [address], 4 09:30:26 Patient TargetsNo targets recorded. Patient Instructions Encounter Date Encounter Id Patient Instructions Last Modified By Organization Details Last Modified Time 12/26/2012 [id number] GOALS: -? ? ? Eat supper meal [...] weeks. [email or web address] Not available 01/02/2013 14:08:40 01/11/2013 [id number] plantar fasciitis: care instructions [email or web address] Not available 01/11/2013 08:28:31 01/23/2013 [id number] GOALS:? ? ? (continued) -? ? ? [...] low calorie drink like V8 juice of sel24x7 Learninger; offer to bring a low-calorie item or [...] followup [email or web address] Not available 01/23/2013 15:46:18 04/12/2013 [id number] learning about mood disorders maurice Not available 04/13/2013 12:36:05 received [facility] records afer the visit- which indicated she took 20 pills of motrin 200 mg. does not appear BMP was done.? ? ? patient had no complaints related to kdineys or GI. markus Not available 04/12/2013 09:32:32 01/31/2014 [id number] Well Visit, Ages 18 to 65: Care Instructions [email or web address] Not available 01/31/2014 09:30:25 Reason for Referral Referring Physician: Viet Le, Family Medicine, Encounter Date: 01/11/2013 General Surgeon Referral for Epidermoid cyst of skin lesion on scalp- epidermal inclusion cyst Referring Physician: Enrique Parker, Family Medicine, Encounter Date: 01/31/2014 Results Created Date Observation Date Name Description Value Unit Range Abnormal Flag Note LastModifiedBy Organization Detail LastModifiedTime Result Notes None recorded. Problems Name Problem SNOMED Code Status Onset Date Resolution Date Notes Provider Name and Address Organization Details Recorded Time Obesity 617580019 Active Enrique Jeongcolo D.O. [address] [place] [address], [phone], [facility] 4 09:30:25 Hypothyroidism 96959717 Active Monique Neville null, [facility] 6 14:15:00 Major depressive disorder 358542783 Active Enrique Jeongcolo D.O. [address] [place] [address], [phone], [facility] 4 21:33:26 Problem Notes None recorded. Procedures Surgical History Date Name Laterality Status Provider Name and Address Organization Details Recorded Time 4 Suture/stapl e Removal completed Enrique Taylor D.O. [address] [place] [address], [phone], [facility] 04/12/2013 09:26:32 Imaging Results None recorded. Procedure [...] Address Organization Details Last Updated DateTime 12/26/2012 [id number] liset Vick, RIVERN, LDN, [address], [address], [facility] 12/26/2012 10:42:23 Date Recorded Body height Body weight Body mass index (BMI) Body temperature Heart rate Systolic blood pressure Diastolic blood pressure Provider Name and Address Organization Details Last Updated DateTime 3 162.56 cm 97488.3 00759 g 37.3 kg/m2 98.2 [degF] 66 /min 102 mm[Hg] 80 mm[Hg] Thea Cunha [facility] 3 08:03:15 Date Recorded Body weight Provider Name an d Address Organization Details Last Updated DateTime 01/23/2013 99172.677540 g Latoya Vick RDN, GAVINO, [address], [address], [facility] 01/23/2013 13:37:55 Date Recorded Body weight Body height Heart rate Body mass index (BMI) Systolic blood pressure Diastolic blood pressure Provider Name and Address Organization Details Last Updated DateTime 4 30148.2 1296 g 162.56 cm 110 /min 35.7 kg/m2 118 mm[Hg] 58 mm[Hg] Kandace Sparrow LPN [facility] 4 09:00:13 Date Recorded Body weight Heart rate Body mass index (BMI) Body height Systolic blood pressure Diastolic blood pressure Provider Name and Address Organization Details Last Updated DateTime 4 600779. 087305 g 72 /min 38.1 kg/m2 162.56 cm 122 mm[Hg] 78 mm[Hg] Kandace Sparrow LPN [facility] 4 09:07:01 Social History Question Answer Notes LastModified by Organizat ion Details LastModified Time Tobacco Smoking Status Never Smoker [facility]astasiia Gama [facility] 08/01/2012 14:32:46 What Is Your Level Of Alcohol Consumption? Occasional Information not available 01/31/2014 What Is Your Level Of Caffeine Consumption? Moderate [email or web address] Information not available 08/01/2012 What Type Of Diet Are You Following? 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 1 Information not available 01/31/2014 Are There Any Guns Present In Your Home? No [email or web address] Information not available 08/01/2012 Live Alone Or With Others? With Others [email or web address] Information not available 08/01/2012 Patient Has Health Care Proxy Signed And In Chart No Form Given To Patient 01/31/14 Information not available 01/31/2014 Marital Status Single [email or web address] Informatio n not available 08/01/2012 Mosquito Repellent Used Routinely Yes Information not available 08/01/2012 How Many Children Do You Have? 0 [email or web address] Information not available 08/01/2012 Seat Belts Used Routinely Yes [email or web address] Information not available 08/01/2012 Are You Sexually Active? No Information not available 01/31/2014 Smoke Alarm In Home Yes [email or web address] Information not available 08/01/2012 General Stress Level Medium Information not available 01/31/2014 Do You Use Sunscreen Routinely? Yes [email or web address] Information not available 08/01/2012 Sex: Unknown Functional [...] Recorded Time Tdap 08/02/2012 completed Not Available [facility] 04/08[facility]2019 02:16:05 Influenza, split virus, trivalent, PF 01/31/2014 completed Not Available [facility] 2019 02:35:42 Past Encounters Encounter ID Performer Location Encounter Start Date Encounter Closed Date Diagnosis/Indication Diagnosis SNOMED-CT Code Diagnosis ICD10 Code Diagnosis Note [id number] Nasreen Lowery MD , [facility], OFFICE [address] [place] [address] 08/01/2012 14:17:47 08/01/2012 15:31:[id number] [place] [address] 09/19/2012 13:27:03 09/19/2012 14:43:[id number] [place] [address] 11/18/2012 10:19:28 11/18/2012 11:42:07 Obesity [id number] [address] [place] [address] 12/26/2012 10:21:07 12/26/2012 12:00:33 Obesity 331478750 [id number] Deana Singh i , [facility], OFFICE [address] [place] [address] 01/11/2013 07:52:44 01/11/2013 08:28:38 Plantar fasciitis 625001362 Taped today. Take ibuprofen (200mg pills) 3 pills, 3 times a day. Or naproxen (Aleve) 220mg pills, 2 pills twice a day. Ice roller. Book with physical thetrapy. [id number] [address] [place] [address] 01/23/2013 13:24:27 01/23/2013 14:38:38 Obesity 077325329 [id number] [place] Garza, [facility], OFFICE [address] [place] [address] 04/12/2013 08:25:38 04/12/2013 09:25:47 Laceration of wrist 643455467 removed elmer from forearm. tolerated well. no sign of redness or infection Depressive disorder 96776870 suicidal attemtp- slit her wrist 1 week ago after break up from [address] [facility] ip Hypothyroidism 92464962 [id number] Fanny MILLS, [facility], OFFICE [address] [place] [address] 01/31/2014 08:43:45 01/31/2014 09:24:54 Hypothyroidism 42634712 tsh 4- feels better when tsh around 1-2. will increase dose to 100 dose change- will repeat tsh in 3 months Adult [facility] th examination [id number] see Risk Assessment and Lifestyle Change Counseling section above Counseling 646992771 Influenza vaccine needed 5771266900 106 Epidermoid cyst of skin 709550683 scalp lesion, has been there for a long time, more itchy- would like removed Obesity 168632552 bmi 38 encouraged increased exercise Health Concerns Section Related Observation LastModified by Organization Detai ls LastModified Time None Recorded Concern Status LastModified by Organization Details LastModified Time None Recorded Advance Directives Directive None Recorded Payers Encounter Date Sequence Insurance Name Policy Number Policy Cardenas Covered Member ID Cardenas Member ID Guarantor Name 12/26/2012 1 [employer] - [place] (POS II) [id number] Mimi Acosta Vanessa [id number] 2 Mimi Vanessa 01/11/2013 1 [employer] [place] (POS II) [id number] Mimi Acosta Vanessa [id number] 2 Mimi Vanessa 01/23/2013 1 [employer] - [place] (POS II) [id number] Mimi Acosta Vanessa [id number] Mimi Vanessa 04/12/2013 2 *SELF PAY* Artur nnie Vanessa 04/12/2013 1 [facility] [id number] Mimi Acosta Vanessa [id number] 01 Mimi Vanessa 01/31/2014 1 G2 [facility] [id number] Mimi Swensonroches [id number] 01 Mimi Vanessa Notes Date Note Type Note Provider Name and Address Organization Details Recorded Time 01/11/2013 text/html on her feet a lo t for work/commute. now 4 days pain in arch of RT foot. no discrete trauma though. ice/asa some help. Moise Le PA-C [address] [place] [address], [phone], [facility] 01/11/2013 08:19:46 04/12/2013 text/html breakup with boyfriend [...] no fevers mostly just feels itchy Enrique Furcolo D.O. [address] [place], [address], [facility] 04/12/2013 09:32:41 OBGyn Episode No OBEpisode recorded.
--- OUTSIDE RECORDS SUMMARY | 2024-05-15 10:00 | XMS_ITS | Clinical Summary ---
Author Organization [facility] Address [address] [place] [address] Care Team Providers Care Crime Lab Technician Name Role Phone Evelyne Ring MD Primary Care Provider Surgical History Surgery Date Site/Laterality Comments OTHER SURGICAL HISTORY PROCEDURE: DENIES PREVIOUS SURGERY Medical History Medical History Date Comments Hypothyroidism due to Hashim jonnie's thyroiditis DX:Hypothyroidism due to Has himoto's thyroiditis Social History Tobacco Use Types Packs/Day Years Used Date Smoking Tobacco: Never Smokeless Tobacco: Never Comments Unknown Sex and Gender Information Value Date Recorded Sex Assigned at Not on file Legal Sex Female 3:26 PM EST Gender Identity Not on file Sexual Orientation [...] patient's age to complete this topic Meningococcal B Vacine Aged Out No lo nger eligible based on patient's age to complete [...] age to complete this topic Care Teams Crime Lab Technician Relationship Specialty Start Date End Date Evelyne Ring MD [address] [place] [address] PCP - General Internal Medicine 10/04/20
[2024-05-24 14:36] VITALS: BMI 38.1
== END 2024-05-15 10:14 | disposition home or self-care (01) ==
PROVIDERS: PCP Internal Medicine; Visit Provider Dietitian, Registered
DX: K90.0 Celiac disease (principal)

== ENCOUNTER → 2024-05-15 09:20 | Outpatient (BNVA) | payer OTHER, SELFPAY | PROVIDERS: PCP Internal Medicine; Visit Provider Dietitian, Registered | DX: K90.0 Celiac disease (principal) | CPT/HCPCS: 97802 ==

== ENCOUNTER 2024-06-21 09:55 | Outpatient (REF) | payer OTHER, SELFPAY ==
--- OUTSIDE RECORDS SUMMARY | 2024-06-21 13:07 | XMS_ITS | Clinical Summary ---
Author Organization [facility] Address [address] [place] [address] Care Team Providers Care Secondary School Registrar Name Role Phone Evelyne Ring MD Primary [...] age to complete this topic Care Teams Secondary School Registrar Relationship Specialty Start Date End Date Evelyne Ring MD [address] [place] [address] PCP - General Internal Medicine 10/04/20
[2024-06-28 15:10] LABS: HPV Genotype 16 Negative (Negative); HPV Genotype 18 Negative (Negative); HPV High Risk Positive (Negative)
== END 2024-06-21 09:56 | disposition home or self-care (01) ==
LOC: HO.LNP 09:55
PROVIDERS: PCP Internal Medicine; Visit Provider Advanced Practice Midwife
DX: Z01.419 Encounter for gynecological examination (general) (routine) without abnormal findings (principal); N87.0 Mild cervical dysplasia; R87.810 Cervical high risk human papillomavirus (HPV) DNA test positive
CPT/HCPCS: 87626; 88175; 99396; 99459

== ENCOUNTER 2024-06-21 09:55 | Outpatient (AMB) | payer OTHER, SELFPAY ==
--- NOTE | 2024-06-21 10:04 | MHC.OFFVIS ---
Vital Signs 06/21/24 10:05 Height 5 ft 4 in Weight 222 lb BMI 38.1 BP 100/70 Intake Visit Reasons: Annual Ged Preparation Teacher: Ged Preparation Teacher Present (Sue) Allergies gluten Allergy (Unknown, Verified 06/21/24 10:08) Unknown Is last menstrual period known: Yes Last menstrual period: 06/01/24 HPI Comments Details: She is a premenopausal woman presenting for annual examination. Doing well with test operator concerns: diagnosed with Celiac disease in the past year. Is hoping for a future . Does not have insurance that covers infertility benefits. Taking vitamins. Regular monthly menses. Currently is sexually active. She denies vaginal itching and irritation. STI screening offered; she declined She tries to eat healthy and stays active with exercise. Denies family history of breast, ovarian or colon cancer. Last pap smear 2018, negative. Mammogram: 2023. Endoscopy and colonoscopy next month. ON LICENSE OF [facility] Medical History Morbid obesity COVID-19 vaccine administered Obesity Vitamin D deficiency Hypothyroidism Surgical History History of placement of ear tubes History of appendectomy Family History Father Type 2 diabetes mellitus History of heart disease Maternal Grandmother History of colon cancer Maternal Grandfather History of colon cancer Paternal Grandmother History of heart disease Mother No problems noted. Paternal Uncle History of heart disease Social History Household Members: Significant Other Both parents involved: Yes Housing: House Are you a primary health care sanitary technician to a significant other at home: No Alcohol intake: current Alcohol intake frequency: a few times a month Comment: 2x a week 1 glass Patient Tobacco Use Status: Never used Tobacco e-Cigarette/Vaping Use: Never Used Second Hand Smoke Exposure: No service: No Current occupational status: employed Current occupation: [employer] Current occupational exposures/hazards: No Cognitive needs: No Hearing needs: No Vision needs: Yes (glasses) Female Reproductive History Menstrual Age of Menarche: 15 Date of last menstrual period: 06/01/24 Total pregnancies: 1 Full term: 1 Number of Living Children: 1 Date of last pap smear: 09/05/18 (neg pap and hpv) History of abnormal pap smear: Yes (06/05 ascus) Date of Mammogram: 12/20/23 (Birad 2) Review of Systems Const All systems reviewed & are unremarkable except as noted in HPI and below Reports as per HPI Eyes Reports no additional complaints ENT Reports no additional complaints Card Reports no additional complaints Resp Reports no additional complaints GI Reports as per HPI and Reports no additional complaints Reports as per HPI Musc Reports no additional complaints Skin/Breast Reports as per HPI Neuro Reports no additional complaints Psych Reports no additional complaints Endo Reports no additional complaints Rashel/Lymph Reports no additional complaints Aller/Immun Reports no additional complaints Physical Exam Vital Signs: Last Vital Signs BP 100/70 06/21/24 10:05 BMI result Body Mass Index 38.1 Const General: cooperative, healthy appearing, no acute distress, well developed and alert Orientation/consciousness: patient oriented x3 HEENT Head: Yes normal to inspection Eyes General: appearance normal, both eyes and all related structures Neck Neck: Yes normal visual inspection Thyroid: Thyroid normal Chest Chest palpation & inspection: normal inspection of the chest and other (no puckering, dimpling, peau de orange, retraction, discharge, masses) Breast/axilla inspection: normal inspection of the breasts Breast/axilla palpation: normal palpation of the breasts Resp Effort & Inspection: normal respiratory effort GI Inspection: Yes normal to inspection Palpation (GI): Soft to palpation Rectal Exam - Female: deferred General: Yes bladder normal to palpation External Female Exam: normal external appearance and normal appearance of the urethra Speculum Exam - Vagina: normal appearance of the vagina, normal palpation and normal vaginal discharge Speculum Exam - Cervix: normal appearance of the cervix and normal palpation Bimanual exam- vagina & uterus: normal bimanual exam, normal palpation, uterine size normal, bladder normal to palpation, normal palpation and non-tender Bimanual Exam- Adnexa, other: no masses Skin General skin exam: no rashes or lesions noted Rashes: no rashes Neuro General: patient oriented x3 Cognition (Neuro): normal cognition Extrem General: Yes normal to inspection Psych Attitude: cooperative Thought process: Normal thought process present Assessment & Plan Assessment & Plan (1) Encounter for well woman exam with routine gynecological exam: Code(s): Z01.419 - Encounter for gynecological examination (general) (routine) without abnormal findings Category: Medical Plan Discussed: Current recommendations for pap smears per ASCCP guidelines. Breast awareness and periodic breast exams. Mammogram yearly. Maintain a healthy lifestyle including a well balanced diet and routine exercise. Optimal goal weight normal BMI. High-risk pregnancies after age 40 may include risk for hypertension, preeclampsia, diabetes and other. Continue vitamins. If positive to notify office. We will need to have care completed at [facility] due to AMA. Patient verbalizes understanding and agrees to the plan of care. She was given opportunity to ask questions and all questions were answered to the best of my ability. RTO in one year for annual test operator examination. This note is constructed using voice recognition software. While every effort has been made to ensure accuracy, visual educator errors may have been included. Coding Level of Care Code Est Pt Prev Care 40-64y(61676) Diagnoses Encounter for well woman exam with routine gynecological exam Z01.419
[2024-06-21 10:05] VITALS: BP 100/70; BMI 38.1
--- OUTSIDE RECORDS SUMMARY | 2024-06-21 11:19 | XMS_ITS | Clinical Summary ---
Author Organization [facility] Address [address] [place] [address] Care Team Providers Care Valve Inspector Name Role Phone Evelyne Ring MD Primary [...] age to complete this topic Care Teams Valve Inspector Relationship Specialty Start Date End Date Evelyne Ring MD [address] [place] [address] PCP - General Internal Medicine 10/04/20
--- OUTSIDE RECORDS SUMMARY | 2024-06-21 11:19 | XMS_ITS | Data Portability ---
Author Organization [facility], [facility] Address [address] [place] [address] Care Team Providers Care Artist Color Separation Name Role Phone ENRIQUE PARKER MD Primary Care Provider Assessment Encounter Date Assessment [...] inclusion cyst 2013 014 kingston Weaver, [address] [facility], [facility] [address], [address], 5 08:11:12 physical therapist referral 2012 013 [email or web address] [facility] (Im[facility]), [address], [place], [address], 3 10:04:38 Procedures None recorded. Surgeries None recorded. Imaging None recorded. Medication Orders levothyroxi ne 100 mcg tablet 2013 014 [id number] [employer], [address] [place], [address], 4 09:30:26 Patient TargetsNo targets recorded. Patient Instructions Encounter Date Encounter Id Patient Instructions Last Modified By Organization Details Last Modified Time 12/26/2012 [id number] GOALS: -? ? ? Eat supper meal [...] weeks. msobil Not available 01/02/2013 14:08:40 01/11/2013 [id number] plantar fasciitis: care instructions juan [email or web address] Not available 01/11/2013 08:28:31 01/23/2013 [id number] GOALS:? ? ? (continued) -? ? ? [...] low calorie drink like V8 juice of Conjurer; offer to bring a low-calorie item or [...] followup msobil Not available 01/23/2013 15:46:18 04/12/2013 [id number] learning about mood disorders maurice Not available 04/13/2013 12:36:05 received [facility] records afer the visit- which indicated she took 20 pills of motrin 200 mg. does not appear BMP was done.? ? ? patient had no complaints related to kdineys or GI. markus Not available 04/12/2013 09:32:32 01/31/2014 [id number] Well Visit, Ages 18 to 65: Care Instructions [email or web address] Not available 01/31/2014 09:30:25 Reason for Referral [...] and Address Organization Details Recorded Time Obesity 932063839 Active Enrique Jeongcolo D.O. [address] [place] [address], [address], [facility] 4 09:30:25 Hypothyroidism 28730451 Active Monique barakat, [facility] 6 14:15:00 Major depressive disorder 726879449 Active Enrique Jeongcolo D.O. [address] [place] [address], [address], [facility] 4 21:33:26 Problem Notes None recorded. Procedures Surgical History Date Name Laterality Status Provider Name and Address Organization Details Recorded Time 4 Suture/stapl e Removal completed Enrique Hammondlo D.O. [address] [place] [address], [address], [facility] 04/12/2013 [...] Address Organization Details Last Updated DateTime 12/26/2012 72760.958993 liset Vick, RIVERN, LDN, [address], [address], [facility] 12/26/2012 10:42:23 Date Recorded Body height Body weight Body mass index (BMI) Body temperature Heart rate Systolic blood pressure Diastolic blood pressure Provider Name and Address Organization Details Last Updated DateTime 10/23/201 3 162.56 cm 55002.3 78701 g 37.3 kg/m2 98.2 [degF] 66 /min 102 mm[Hg] 80 mm[Hg] Thea Cunha [facility] 3 08:03:15 Date Recorded Body weight Provider Name an d Address Organization Details Last Updated DateTime 01/23/2013 51774.648464 g Latoya Vick RDN, GAVINO, [address], [address], [facility] 01/23/2013 13:37:55 Date Recorded Body weight Body height Heart rate Body mass index (BMI) Systolic blood pressure Diastolic blood pressure Provider Name and Address Organization Details Last Updated DateTime 4 65337.2 1296 g 162.56 cm 110 /min 35.7 kg/m2 118 mm[Hg] 58 mm[Hg] Kandace Sparrow LPN [facility] 4 09:00:13 Date Recorded Body weight Heart rate Body mass index (BMI) Body height Systolic blood pressure Diastolic blood pressure Provider Name and Address Organization Details Last Updated DateTime 4 026584. 370351 g 72 /min 38.1 kg/m2 162.56 cm 122 mm[Hg] 78 mm[Hg] Kandace Sparrow LPN [facility] 4 09:07:01 Social History Question Answer Notes LastModified by Organizat ion Details LastModified Time Tobacco Smoking Status Never Smoker [facility]astasiia [facility] 08/01/2012 14:32:46 What Is Your Level Of Alcohol Consumption? Occasional Information not available 01/31/2014 What Is Your Level Of Caffeine Consumption? Moderate [email or web address] Information not available 08/01/2012 What Type Of Diet Are You Following? 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 1 Information not available 01/31/2014 Are There Any Guns Present In Your Home? No [email or web address] Information not available 08/01/2012 Live Alone Or With Others? With Others [email or web address] Information not available 08/01/2012 Patient Has Health Care Proxy Signed And In Chart No Form Given To Patient 01/31/14 Information not available 01/31/2014 Marital Status Single [email or web address] Informatio n not available 08/01/2012 Mosquito Repellent Used Routinely Yes Information not available 08/01/2012 How Many Children Do You Have? 0 [email or web address] Information not available 08/01/2012 Seat Belts Used Routinely Yes [email or web address] Information not available 08/01/2012 Are You Sexually Active? No Information not available 01/31/2014 Smoke Alarm In Home Yes Information not available 08/01/2012 General Stress Level Medium Information not available 01/31/2014 Do You Use Sunscreen Routinely? Yes [email or web address] Information not available 08/01/2012 Sex: Unknown Functional [...] Recorded Time Tdap 08/02/2012 completed Not Available [facility] 04/08/2019 02:16:05 Influenza, split virus, trivalent, PF 01/31/2014 completed Not Available [facility] 2019 02:35:42 Past Encounters Encounter ID Performer Location Encounter Start Date Encounter Closed Date Diagnosis/Indication Diagnosis SNOMED-CT Code Diagnosis ICD10 Code Diagnosis Note [id number] Nasreen Lowery MD , [facility], OFFICE [address] [place], [place] [address] 08/01/2012 14:17:47 08/01/2012 15:31:[id number] [place] [address] 09/19/2012 13:27:03 09/19/2012 14:43:[id number] [place] [address] 11/18/2012 10:19:28 11/18/2012 11:42:07 Obesity 945956655 [id number] [address] [place] [address] 12/26/2012 10:21:07 12/26/2012 12:00:33 Obesity 915361274 [id number] Deana Singh i , [facility], OFFICE [address] [place] [address] 01/11/2013 07:52:44 01/11/2013 08:28:38 Plantar fasciitis 958401739 Taped today. Take ibuprofen (200mg pills) 3 pills, 3 times a day. Or naproxen (Aleve) 220mg pills, 2 pills twice a day. Ice roller. Book with physical thetrapy. [id number] [address] [place] [address] 01/23/2013 13:24:27 01/23/2013 14:38:38 Obesity 282405474 [id number] [place] Garza, [facility], OFFICE [address] [place] [address] 04/12/2013 08:25:38 04/12/2013 09:25:47 Laceration of wrist 441797354 removed elmer from forearm. tolerated well. no sign of redness or infection Depressive disorder 62262195 suicidal attemtp- slit her wrist 1 week ago after break up from 8 [facility] Hypothyroidism 17889326 [id number] Fanny MILLS, [facility], OFFICE [address] [place] [address] 01/31/2014 08:43:45 01/31/2014 09:24:54 Hypothyroidism 21723935 tsh 4- feels better when tsh around 1-2. will increase dose to 100 dose change- will repeat tsh in 3 months Adult [facility] th examination 653579719 see Risk Assessment and Lifestyle Change Counseling section above Counseling 672844630 Influenza vaccine needed [id number] 106 Epidermoid cyst of skin 864836158 scalp lesion, has been there for a long time, more itchy- would like removed Obesity 990235917 bmi 38 encouraged increased exercise Health Concerns Section Related Observation LastModified by Organization Detai ls LastModified Time None Recorded Concern Status LastModified by Organization Details LastModified Time None Recorded Advance Directives Directive None Recorded Payers Encounter Date Sequence Insurance Name Policy Number Policy Cardenas Covered Member ID Cardenas Member ID Guarantor Name 12/26/2012 1 [employer] - [place] (POS II) [id number] Mimi Karla Vanessa [id number] 2 [id number] Mimi Vanessa 01/11/2013 1 [employer] - [place] (POS II) [id number] Mimi M Vanessa [id number] 2 [id number] Mimi Vanessa 01/23/2013 1 [employer] - [place] (POS II) [id number] Mimi M Vanessa [id number] 2 [id number] Mimi Vanessa 04/12/2013 2 *SELF PAY* Artur nnie Vanessa 04/12/2013 1 [facility] (O) [id number] Mimi M Vanessa [id number] 01 [id number] Mimi Vanessa 01/31/2014 1 [facility]LY [facility] [id number] Mimi Acosta Vanessa [id number] 01 [id number] Mimi Vanessa Notes Date Note Type Note Provider Name and Address Organization Details Recorded Time 01/11/2013 text/html on her feet a lo t for work/commute. now 4 days pain in arch of RT foot. no discrete trauma though. ice/asa some help. Moise Le PA-C [address] [place] [address], [address], [facility] 01/11/2013 08:19:46 04/12/2013 text/html breakup with boyfriend [...] no fevers mostly just feels itchy Enrique Parker D.O. [address] [place], [address], [facility] 04/12/2013 09:32:41 OBGyn Episode No OBEpisode recorded.
== END 2024-06-21 10:57 | disposition home or self-care (01) ==
LOC: HO.HWS 09:55
PROVIDERS: PCP Internal Medicine; Visit Provider Advanced Practice Midwife
DX: Z01.419 Encounter for gynecological examination (general) (routine) without abnormal findings (principal)
CPT/HCPCS: 99396; 99459

== ENCOUNTER 2024-06-26 08:50 | Outpatient (AMB) | payer OTHER, SELFPAY ==
--- NOTE | 2024-06-26 09:12 | A.OFFVIS_ITS ---
VS Expanded 06/26/24 09:20 Height 5 ft 4 in Weight 226 lb 13.69 oz BMI 38.9 Intake Visit Reasons: celiac disease Allergies gluten Allergy (Unknown, Verified 06/21/24 10:08) Unknown Nutrition Presentation Details: Pt presents for MNT for Celiac Disease Pt reports feeling comfortable and understanding gluten free diet concepts and prevention of contamination. Pt reports having difficulties with weight loss send ideas for meal prep BS Monitoring Most Recent Diabetes Results: Cholesterol 186 mg/dL (<200) 12/27/23 HDL Cholesterol 59 mg/dL (>40) 12/27/23 Triglycerides 72 mg/dL (<150) 12/27/23 Creatinine 0.74 mg/dL (0.5-1.4) 12/27/23 Blood Urea Nitrogen 12 mg/dL (9-16) 12/27/23 Sodium 139 mmol/L (135-145) 12/27/23 Potassium 3.6 mmol/L (3.3-5.1) 12/27/23 Chloride 107 mmol/L (96-108) 12/27/23 Carbon Dioxide 24 mmol/L (22-29) 12/27/23 Calcium 9.7 mg/dL (8.4-10.2) 12/27/23 AST 15 U/L (5-31) 12/27/23 ALT 15 U/L (0-31) 12/27/23 Total Protein 7.3 g/dL (6.5-8.0) 12/27/23 Albumin 4.4 g/dL (3.5-5.0) 12/27/23 [facility] Medical History Morbid obesity COVID-19 vaccine administered Obesity Vitamin D deficiency Hypothyroidism Surgical History History of placement of ear tubes History of appendectomy Family History Father Type 2 diabetes mellitus History of heart disease Maternal Grandmother History of colon cancer Maternal Grandfather History of colon cancer Paternal Grandmother History of heart disease Mother No problems noted. Paternal Uncle History of heart disease Social History Household Members: Significant Other Both parents involved: Yes Housing: House Are you a primary rn home care to a significant other at home: No Alcohol intake: current Alcohol intake frequency: a few times a month Comment: 2x a week 1 glass Patient Tobacco Use Status: Never used Tobacco e-Cigarette/Vaping Use: Never Used Second Hand Smoke Exposure: No service: No Current occupational status: employed Current occupation: [employer] Current occupational exposures/hazards: No Cognitive needs: No Hearing needs: No Vision needs: Yes (glasses) Female Reproductive History Menstrual Age of Menarche: 15 Assessment & Plan Assessment & Plan (1) Celiac disease: Code(s): K90.0 - Celiac disease Category: Medical Plan: Wt: 100 Kg ( 05/16 ), 103kg (07/14) Est kcal needs as per MSJ: 2000 (40% carb, 30% protein/fat) Est fluid needs as per 25-30 ml/d: 2500 Est prot per day as per 1 g/kg bw: 100 Recommend fiber intake : 8-10 g per day and gradually increase to 25-28 g per day for women and 35-38 g for men or as tolerated Recommend sodium intake per day : less than 2000 mg Educated patient on: ( R = reviewed V = verbalizes understanding N/R = needs review N/A = not applicable * Food sources of carbohydrate, adequate serving sizes and its role in various health conditions: R V N/R * Differences between complex carbohydrates a simple carbohydrates, role of fiber in diet: R * Lean protein sources of foods: R * Differences between types of fats and role in diet (mono on saturated fat fatty acids, saturated fatty acids, trans fats): R V N/R * Food sources of sodium in salt and healthy modifications for heart health in kidney health: R V R/V * Vitamins and minerals, choose fortified gluten free options: R * Healthy plate method concept: R V N/R * Physical activity: Benefits a precaution: R Patient Instructions: Caution with amount of fat , hidden fats in the meals (amount of butter, oils , cream, sauces added to the meals) Have 3 meals/day and snack in between , see meal ideas (sent via email) work on gradually reducing portion sizes to prevent further weight loss Coding Level of Care Code Nutr Indiv Subseq (05739) Diagnoses Celiac disease K90.0 Time Spent (min) 30
[2024-06-26 09:20] VITALS: BMI 38.9
--- OUTSIDE RECORDS SUMMARY | 2024-06-26 09:38 | XMS_ITS | Data Portability ---
Author Organization [facility], [facility] Address [address] [place] [address] Care Team Providers Care Hoop Maker Machine Name Role Phone ENRIQUE PARKER MD Primary Care Provider [phone] Assessment Encounter Date Assessment Date Assessment LastModified [...] inclusion cyst 2013 014 kingston Weaver, 264 [facility], [facility] [address], [address], 5 08:11:12 physical therapist referral 2012 013 [email or web address] [email or web address] [facility] ([facility]), [address], [place], [address], 3 10:04:38 Procedures None recorded. Surgeries None recorded. Imaging None recorded. Medication Orders levothyroxi ne 100 mcg tablet 2013 014 [facility] [employer], [address] [place], [address], 4 09:30:26 Patient TargetsNo targets recorded. Patient Instructions Encounter Date Encounter Id Patient Instructions Last Modified By Organization Details Last Modified Time 12/26/2012 [id number] GOALS: -? ? ? Eat supper meal [...] weeks. msobil Not available 01/02/2013 14:08:40 01/11/2013 [id number] plantar fasciitis: care instructions juan [email or web address] Not available 01/11/2013 08:28:31 01/23/2013 [id number] GOALS:? ? ? (continued) -? ? ? [...] low calorie drink like V8 juice of Gemmyoer; offer to bring a low-calorie item or [...] followup [email or web address] Not available 01/23/2013 15:46:18 04/12/2013 [id number] learning about mood disorders maurice Not available 04/13/2013 12:36:05 received [facility] records afer the visit- which indicated she took 20 pills of motrin 200 mg. does not appear BMP was done.? ? ? patient had no complaints related to kdineys or GI. markus Not available 04/12/2013 09:32:32 01/31/2014 [id number] Well Visit, Ages 18 to 65: Care [...] and Address Organization Details Recorded Time Obesity 631673611 Active Enrique Jeongcolo D.O. [address] [place] [address], [address], [facility] 4 09:30:25 Hypothyroidism 18719977 Active Monique barakat, [facility] 6 14:15:00 Major depressive disorder 774923801 Active Enrique Jeongcolo D.O. [address] [place] [address], [address], [facility] 4 21:33:26 Problem Notes None recorded. Procedures Surgical History Date Name Laterality Status Provider Name and Address Organization Details Recorded Time 4 Suture/stapl e Removal completed Enrique Hammondlo D.O. [address] [place] [address], [address], [facility] 04/12/2013 09:26:32 Imaging Results None recorded. Procedure [...] Address Organization Details Last Updated DateTime 12/26/2012 97312.819755 liset Vick, RIVERN, LDN, [address], [address], [facility] 12/26/2012 10:42:23 Date Recorded Body height Body weight Body mass index (BMI) Body temperature Heart rate Systolic blood pressure Diastolic blood pressure Provider Name and Address Organization Details Last Updated DateTime 10/23/201 3 162.56 cm 71650.3 72760 g 37.3 kg/m2 98.2 [degF] 66 /min 102 mm[Hg] 80 mm[Hg] Thea Cunha [facility] 3 08:03:15 Date Recorded Body weight Provider Name an d Address Organization Details Last Updated DateTime 01/23/2013 19068.838222 g Latoay Vick RDN, [place], [address], [address], [facility] 01/23/2013 13:37:55 Date Recorded Body weight Body height Heart rate Body mass index (BMI) Systolic blood pressure Diastolic blood pressure Provider Name and Address Organization Details Last Updated DateTime 4 87427.2 1296 g 162.56 cm 110 /min 35.7 kg/m2 118 mm[Hg] 58 mm[Hg] Kandace Sparrow LPN [facility] 4 09:00:13 Date Recorded Body weight Heart rate Body mass index (BMI) Body height Systolic blood pressure Diastolic blood pressure Provider Name and Address Organization Details Last Updated DateTime 4 830848. 149076 g 72 /min 38.1 kg/m2 162.56 cm 122 mm[Hg] 78 mm[Hg] Kandace Sparrow LPN [facility] 4 09:07:01 Social History Question Answer Notes LastModified by Organizat ion Details LastModified Time Tobacco Smoking Status Never Smoker [facility] 08/01/2012 14:32:46 What Is Your Level Of Alcohol Consumption? Occasional Information not available 01/31/2014 What Is Your Level Of Caffeine Consumption? Moderate [email or web address] Information not available 08/01/2012 What Type Of Diet Are You Following? 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 1 Information not available 01/31/2014 Are There Any Guns Present In Your Home? No [email or web address] Information not available 08/01/2012 Live Alone Or With Others? With Others [email or web address] Information not available 08/01/2012 Patient Has Health Care Proxy Signed And In Chart No Form Given To Patient 01/31/14 Information not available 01/31/2014 Marital Status Single [email or web address] Informatio n not available 08/01/2012 Mosquito Repellent Used Routinely Yes Information not available 08/01/2012 How Many Children Do You Have? 0 [email or web address] Information not available 08/01/2012 Seat Belts Used Routinely Yes [email or web address] Information not available 08/01/2012 Are You Sexually Active? No Information not available 01/31/2014 Smoke Alarm In Home Yes [email or web address] Information not available 08/01/2012 General Stress Level Medium Information not available 01/31/2014 Do You Use Sunscreen Routinely? Yes [email or web address] Information not available 08/01/2012 Sex: Unknown Functional [...] Recorded Time Tdap 08/02/2012 completed Not Available [facility]2019 02:16:05 Influenza, split virus, trivalent, PF 01/31/2014 completed Not Available [facility] 2019 02:35:42 Past Encounters Encounter ID Performer Location Encounter Start Date Encounter Closed Date Diagnosis/Indication Diagnosis SNOMED-CT Code Diagnosis ICD10 Code Diagnosis Note [id number] Nasreen Lowery MD , [facility], OFFICE [address] [place], [place] [address] 08/01/2012 14:17:47 08/01/2012 15:31:[id number] [place] [address] 09/19/2012 13:27:03 09/19/2012 14:43:[id number] [place] [address] 11/18/2012 10:19:28 11/18/2012 11:42:07 Obesity 727528109 [id number] [address] [place] [address] 12/26/2012 10:21:07 12/26/2012 12:00:33 Obesity 764192391 [id number] Deana Singh i , [facility], OFFICE [address] [place] [address] 01/11/2013 07:52:44 01/11/2013 08:28:38 Plantar fasciitis 009784899 Taped today. Take ibuprofen (200mg pills) 3 pills, 3 times a day. Or naproxen (Aleve) 220mg pills, 2 pills twice a day. Ice roller. Book with physical thetrapy. [id number] [address] [place] [address] 01/23/2013 13:24:27 01/23/2013 14:38:38 Obesity 219835704 [id number] [place] Garza, [facility], OFFICE [address] [place] [address] 04/12/2013 08:25:38 04/12/2013 09:25:47 Laceration of wrist 917621822 removed elmer from forearm. tolerated well. no sign of redness or infection Depressive disorder 62513717 suicidal attemtp- slit her wrist 1 week ago after break up from 8 year [facility] ip Hypothyroidism 92171407 [id number] Fanny MILLS, [facility], OFFICE [address] [place] [address] 01/31/2014 08:43:45 01/31/2014 09:24:54 Hypothyroidism 24423358 tsh 4- feels better when tsh around 1-2. will increase dose to 100 dose change- will repeat tsh in 3 months Adult [facility] th examination 877190907 see Risk Assessment and Lifestyle Change Counseling section above Counseling 680893817 Influenza vaccine needed 0151412533 106 Epidermoid cyst of skin 865429865 scalp lesion, has been there for a long time, more itchy- would like removed Obesity 873871475 bmi 38 encouraged increased exercise Health Concerns Section Related Observation LastModified by Organization Detai ls LastModified Time None Recorded Concern Status LastModified by Organization Details LastModified Time None Recorded Advance Directives Directive None Recorded Payers Encounter Date Sequence Insurance Name Policy Number Policy Cardenas Covered Member ID Cardenas Member ID Guarantor Name 12/26/2012 1 [employer] - NAP (POS II) [id number] Mimi Karla Vanessa [id number] 2 [id number] Mimi Vanessa 01/11/2013 1 [employer] - [place] (POS II) [id number] Mimi M Vanessa [id number] 2 [id number] Mimi Vanessa 01/23/2013 1 [employer] - [place] (POS II) [id number] Mimi M Vanessa [id number] 2 [id number] Mimi Vanessa 04/12/2013 2 *SELF PAY* Artur nnie Vanessa 04/12/2013 1 [facility] (O) [id number] Mimi M Vanessa [id number] 01 [id number] Mimi Vanessa 01/31/2014 1 [facility] [id number] Mimi Acosta Vanessa [id number] 01 [id number] Mimi Vanessa Notes Date Note Type Note Provider Name and Address Organization Details Recorded Time 01/11/2013 text/html on her feet a lo t for work/commute. now 4 days pain in arch of RT foot. no discrete trauma though. ice/asa some help. Moise Le PA-C [address] [place] [address], [address], [facility] 01/11/2013 08:19:46 04/12/2013 text/html breakup with boyfriend [...] just feels itchy Enrique Parker D.O. [address] [place], [address], [facility] 04/12/2013 09:32:41 OBGyn Episode No OBEpisode recorded.
--- OUTSIDE RECORDS SUMMARY | 2024-06-26 09:38 | XMS_ITS | Clinical Summary ---
Author Organization [facility] Address [address] [place] [address] Care Team Providers Care Layup Worker Name Role Phone Evelyne Ring MD Primary [...] age to complete this topic Care Teams Layup Worker Relationship Specialty Start Date End Date Evelyne Ring MD [address] [place] [address] PCP - General Internal Medicine 10/04/20
== END 2024-06-26 09:45 | disposition home or self-care (01) ==
LOC: HO.ENCR 08:51
PROVIDERS: PCP Internal Medicine; Visit Provider Dietitian, Registered
DX: K90.0 Celiac disease (principal)

== ENCOUNTER → 2024-06-26 08:50 | Outpatient (BNVA) | payer OTHER, SELFPAY | PROVIDERS: PCP Internal Medicine; Visit Provider Dietitian, Registered | DX: K90.0 Celiac disease (principal); Z71.3 Dietary counseling and surveillance | CPT/HCPCS: 97803 ==

== ENCOUNTER 2024-07-18 09:00 | Day surgery (SDC) | payer OTHER, SELFPAY ==
--- OUTSIDE RECORDS SUMMARY | 2024-05-24 06:21 | XMS_ITS | Clinical Summary ---
Author Organization [facility] Address [address] [place] [address] Care Team Providers Care Engineering Consultant Name Role Phone Evelyne Ring MD Primary [...] age to complete this topic Care Teams Engineering Consultant Relationship Specialty Start Date End Date Evelyne Ring MD [address] [place] [address] PCP - General Internal Medicine 10/04/20
[2024-07-14 14:35] VITALS: BMI 37.8
--- NOTE | 2024-07-17 09:08 | P.CONAN_ITS ---
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 Paternal Uncle History of heart disease Surgical History Surgical History History of placement of ear tubes History of appendectomy Social History Social History Household Members: Significant Other Housing: House Are you a primary home care scheduler to a significant other at home: No Alcohol intake: current Alcohol intake frequency: a few times a month Comment: 2x a week 1 glass Patient Tobacco Use Status: Never used Tobacco e-Cigarette/Vaping Use: Never Used Second Hand Smoke Exposure: No service: No Current occupational status: employed Current occupation: [employer] Current occupational exposures/hazards: No Cognitive needs: No Hearing needs: No Vision needs: Yes (glasses) Meds Allergies Allergy/AdvReac Type Severity Reaction Status Date / Time gluten Allergy Unknown Unknown Verified 07/18/24 09:39 Home Medications ?Medication ?Instructions ?Recorded ?Confirmed ?Last Taken ?Type multivitamin 1 tab PO DAILY 04/17/24 Unknown History Exam Height,Weight and Vital Signs: Height 5 ft 4 in Weight 99.79 kg Assessment and Plan Assessment Anesthesia Assessment: Chart Reviewed Documented by User: Akhil Tipton MD 07/18/24 10:57 [facility] Past Medical History Medical History (Updated 07/14/24 @ 14:33 by Idalmis Stuart RN) Celiac disease Morbid obesity Obesity Vitamin D deficiency Hypothyroidism Patient : No Family History Family History Father Type 2 diabetes mellitus History of heart disease Maternal Grandmother History of colon cancer Maternal Grandfather History of colon cancer Paternal Grandmother History of heart disease Mother No problems noted. Paternal Uncle History of heart disease Family history of problems with anesthesia: No Surgical History Surgical History History of placement of ear tubes History of appendectomy History of Problems with Anesthesia: No Social History Social History Household Members: Significant Other Housing: House Are you a primary home care scheduler to a significant other at home: No Alcohol intake: current Alcohol intake frequency: a few times a month Comment: 2x a week 1 glass Patient Tobacco Use Status: Never used Tobacco e-Cigarette/Vaping Use: Never Used Second Hand Smoke Exposure: No service: No Current occupational status: employed Current occupation: [employer] Current occupational exposures/hazards: No Cognitive needs: No Hearing needs: No Vision needs: Yes (glasses) Meds Allergies Allergy/AdvReac Type Severity Reaction Status Date / Time gluten Allergy Unknown Unknown Verified 07/18/24 09:39 Home Medications ?Medication ?Instructions ?Recorded ?Confirmed ?Last Taken ?Type multivitamin 1 tab PO DAILY 04/17/24 Unknown History Exam Airway Mallampati Class: I TM Dist: <=3cm Neck ROM: Full Loose/Missing/Broken Teeth: No Heart: ok Lungs: ok Assessment and Plan Assessment Anesthesia Assessment: Anesthesia Plan Discussed Final Anesthetic Review Family History of Problems with Anesthesia: No History of Problems with Anesthesia: No NPO: Yes ASA Class: III Final Preanesthetic Review: No Changes in Pt Med Stat, Meds/Allgs Chart Reviewed, Consent Obtained/Reviewed and Anes Risks/Benef Reviewed Patient Risk: Intermediate Procedure Risk: Intermediate Anesthetic Plan Anesthetic Plan: Agree w/ Assess. and Plan and TIVA Disposition: Standard PACU
[2024-07-18 09:57] LABS: UPreg QC Valid YES; Urine Pregnancy NEGATIVE (NEGATIVE)
[2024-07-18 09:59] VITALS: BP 122/86; PULSE 80; RESP 18; TEMP 36.7; O2SAT 97; BMI 39.0
[2024-07-18] MEDS: Lactated Ringers 1,000 ML 100 ML IVCONT (10:03)
--- NOTE | 2024-07-18 10:08 | MHC.SHP ---
Pre-Procedural Eval Section A - 24 Hr Update-Section A only Date of Service: 07/18/24 Section B - Complete if H&P > 30 days Chief Complaint: Celiac disease Details of Present Illness: fh of cRC- colo screening Relevant Family History (Specify if Yes): Yes Relevant Social History: None Present Medications: see Short Stay Collaborative assessment Medical History: Significant History (Morbid obesity COVID-19 vaccine administered Obesity Vitamin D deficiency Hypothyroidism) History of Previous Operations: Relevant previous surgery/procedure and date(s) (History of placement of ear tubes History of appendectomy) Allergies: Allergies Allergy/AdvReac Type Severity Reaction Status Date / Time gluten Allergy Unknown Unknown Verified 07/18/24 09:39 Review of Systems Sugical H&P ROS: Negative: Constitution, Cardiovascular, Respiratory, Neurological, Psychiatric, Hem-Onc, Allergic/Immunologic, Gastrointestinal, Genitourinary, Musculoskeletal, Integumentary, Endocrine and Eyes/Ears/Nose/Throat Exam Surgical H&P Exam: Normal: HEENT, Normal: Heart, Normal: Lungs, Normal: Extremities, Normal: Abdomen, Normal: Skin and Normal: Neurological Plan Diagnosis/Plan: Unchanged I have reviewed the history and physical and performed a pertinent physical examination on my patient. No changes have occurred unless specified. also colo screening Time Spent With Patient Time: Total time managing care of this patient today ____ minutes.
--- NOTE | 2024-07-18 11:31 | P.OPN-COLO_ITS ---
Colonoscopy Operative Note Operative Note Date of Service: 07/18/24 Narrative: Operative Information Procedure Description: EGD, Colonoscopy Indication: celiac and FH of colon cancer, abn bowel habits Anesthesia: MAC FLEXIBLE TRANSORAL UPPER GASTROINTESTINAL ENDOSCOPY AND COLONOSCOPY PROCEDURE NOTE UPPER ENDOSCOPY Consent: Indications for the procedure and potential complications of bleeding, perforation, reaction to medications and missed diagnosis were discussed with the patient and informed consent was obtained. Instrument: Olympus GIF H 190 J mid size upper endoscope Monitoring: Vital signs and clinical assessment, continuous EKG monitoring, Pulse oximetry, Carbon Dioxide monitoring and blood pressure monitoring were done throughout the procedure. Procedure: The patient was placed in the left lateral decubitis position and pre-procedure medications were administered and a bite block was placed. The endoscope was inserted into the mouth and advanced under direct vision to the third part of duodenum. A careful inspection was made as the upper endoscope was withdrawn including a retroflexed examination of the proximal stomach; Findings and interventions are described below. Findings: Larynx:normal Esophagus: GE junction at 36 cm, diaphragm hiatus at 36 cm, bogginess and erythema at GEJ, bx taken from here and distal esophagus Stomach: Normal mucosa. Biopsies were obtained. Grade 2 flap valve on retroflexed examination of the cardia. Duodenum: patchy erythema, bx taken, Intervention: Biopsies as noted above, COLONOSCOPY Instrument: Olympus variable stiffness pediatric scope 190L Colonoscopy Monitoring: Vital signs and clinical assessment, continuous EKG monitoring, Pulse oximetry, Carbon Dioxide monitoring and blood pressure monitoring were done throughout the procedure. Colon withdrawal time was 11 minutes. Procedure: The patient was placed in the left lateral decubitis position and pre-procedure medications were administered. After a digital rectal examination of the ano-rectum, the video colonoscope was inserted into the rectum and advanced through the colon to the cecum/TI. The colonoscope was slowly withdrawn in a retrograde panoramic fashion and the colon mucosa was carefully examined including a retroflexed view of the rectum. Findings and interventions are described below. Procedure Difficulty:moderate Findings: Terminal Ileum-normal- bx taken random colo bx taken to r/o microscopic colitis Cecum:normal Ascending Colon: normal Transverse Colon -normal Descending Colon:normal Sigmoid Colon: moderate diverticulosis Rectum: Retroflexion with small internal hemorrhoids, grade I Anorectum - normal Colon preparation: [place] Bowel Preparation Scale Right colon; 2 Transverse colon: 2 Left colon; 1-2 (0 = Unprepared colon segment with mucosa not seen due to solid stool that cannot be cleared. 1 = Portion of mucosa of the colon segment seen, but other areas of the colon segment not well seen due to staining, residual stool and/or opaque liquid. 2 = Minor amount of residual staining, small fragments of stool and/or opaque liquid, but mucosa of colon segment seen well. 3 = Entire mucosa of colon segment seen well with no residual staining, small fragments of stool or opaque liquid) Impression and Post Procedure Diagnosis: Endoscopy Findings: duodenitis esophagitis Colonoscopy Findings: diverticulosis internal hemorrhoids Plan: Await Pathology results Repeat Colonoscopy in 5 years due to some areas of fair prep on left side or earlier if clinically indicated High fiber diet leaflet avoid straining at stool, epsom salts and sitz bath, anusol supps or cream Above findings were reviewed with the patient and relevant handouts were provided if indicated.
[2024-07-18 11:37] VITALS: BP 90/55; PULSE 67; RESP 18; TEMP 36.8; O2SAT 100
[2024-07-18 11:52] VITALS: BP 131/80; PULSE 59; RESP 20; TEMP 37.2; O2SAT 100
== END 2024-07-18 12:19 | disposition home or self-care (01) ==
PROVIDERS: Nurse Practitioner; PCP Internal Medicine; Visit Provider Internal Medicine Gastroenterology
PROC: (CPT 45380; principal; 2024-07-18 11:10)
DX: R19.4 Change in bowel habit (principal); Z83.719 Family history of colon polyps, unspecified; K90.0 Celiac disease; K57.30 Diverticulosis of large intestine without perforation or abscess without bleeding; K64.0 First degree hemorrhoids; K20.90 Esophagitis, unspecified without bleeding; K29.80 Duodenitis without bleeding; K44.9 Diaphragmatic hernia without obstruction or gangrene; E06.3 Autoimmune thyroiditis; E55.9 Vitamin D deficiency, unspecified; E66.01 Morbid (severe) obesity due to excess calories; Z68.37 Body mass index [BMI] 37.0-37.9, adult; Z79.899 Other long term (current) drug therapy
CPT/HCPCS: 45380; 43239; 36415; 81025; 82657; 88305; 88313; 88342; J2003; J2704; J3010

== ENCOUNTER → 2024-07-18 09:00 | Outpatient (BNV) | payer OTHER, SELFPAY | PROVIDERS: PCP Internal Medicine; Visit Provider Internal Medicine Gastroenterology | DX: K29.80 Duodenitis without bleeding (principal); K20.90 Esophagitis, unspecified without bleeding; K90.0 Celiac disease; Z80.0 Family history of malignant neoplasm of digestive organs; R19.4 Change in bowel habit; K57.30 Diverticulosis of large intestine without perforation or abscess without bleeding | CPT/HCPCS: 43239; 45380 ==

== ENCOUNTER 2024-07-24 10:37 | Outpatient (REF) | payer OTHER, SELFPAY ==
--- OUTSIDE RECORDS SUMMARY | 2024-07-24 13:11 | XMS_ITS | Clinical Summary ---
Author Organization [facility] Address [address] [place] [phone] Care Team Providers Care Landing Gear Mechanic Name Role Phone Evelyne Ring MD Primary [...] age to complete this topic Care Teams Landing Gear Mechanic Relationship Specialty Start Date End Date Evelyne Ring MD [address] [place] [address] PCP - General Internal Medicine 10/04/20
== END 2024-07-24 10:38 | disposition home or self-care (01) ==
LOC: HO.LNP 10:37
PROVIDERS: PCP Internal Medicine; Visit Provider Obstetrics & Gynecology
DX: R87.612 Low grade squamous intraepithelial lesion on cytologic smear of cervix (LGSIL) (principal)
CPT/HCPCS: 57454; 88305

== ENCOUNTER 2024-07-24 10:37 | Outpatient (AMB) | payer OTHER, SELFPAY ==
--- NOTE | 2024-07-24 10:45 | MHC.OFFVIS ---
Intake Visit Reasons: Colposcopy Guitar Repair Technician: Guitar Repair Technician Present (KATHLEEN Lea) Accompanied by: Self / Same As Patient Allergies gluten Allergy (Unknown, Verified 07/24/24 10:53) Unknown HPI Comments Details: Presenting for abnormal Pap smear showing low-grade CAITLYN HPV high-risk positive, HPV 16/18 negative [facility] Medical History Celiac disease Morbid obesity Obesity Vitamin D deficiency Hypothyroidism Surgical History History of placement of ear tubes History of appendectomy Family History Father Type 2 diabetes mellitus History of heart disease Maternal Grandmother History of colon cancer Maternal Grandfather History of colon cancer Paternal Grandmother History of heart disease Mother No problems noted. Paternal Uncle History of heart disease Social History Household Members: Significant Other Both parents involved: Yes Housing: House Are you a primary healthcare project manager to a significant other at home: No Alcohol intake: current Alcohol intake frequency: a few times a month Comment: 2x a week 1 glass Patient Tobacco Use Status: Never used Tobacco e-Cigarette/Vaping Use: Never Used Second Hand Smoke Exposure: No service: No Current occupational status: employed Current occupation: [employer] Current occupational exposures/hazards: No Cognitive needs: No Hearing needs: No Vision needs: Yes (glasses) Female Reproductive History Menstrual Age of Menarche: 15 Review of Systems Const All systems reviewed & are unremarkable except as noted in HPI and below Reports as per HPI and Reports no additional complaints GI Reports no additional complaints Reports no additional complaints Office Procedures Colposcopy Colposcopy: Pre-Procedure Counseling: Before beginning the procedure, I conducted comprehensive counseling with the patient. We thoroughly discussed the procedure itself, including its details, alternatives, and all associated risks. This included but not limited to the following complications such as bleeding, infection, and injury to the vagina, bladder, and vessels, as well as the potential need for transfusion with all its associated risks. Subsequently, the patient sign the consent. Pap smear result: LSIL/HPV positive, HPV 16/18 negative. Procedure: During the procedure, the following steps were performed: A speculum was inserted, and acetic acid was applied. Colposcopy was conducted, allowing visualization of the transformation zone. Acetowhite lesions were identified at the 5+6+7+12+3 o'clock position. Cervical biopsies were obtained from the 5+6+7+12+3 o'clock position, followed by an endocervical curettage (ECC). Vaginoscopy of the upper vagina revealed no evidence of aceto-white lesions. Hemostasis was achieved using Monsel solution, and the patient tolerated the procedure well. Post-Procedure Instructions: The patient was advised to promptly contact the office or the after hours answering service or go to the emergency room if experiencing a temperature exceeding 100.4?F, abdominal pain, nausea/vomiting, or bleeding. Additionally, the patient was instructed to abstain from vaginal intercourse and bathtub use. The patient confirmed understanding of these instructions. Discharge Instructions: The patient was instructed to schedule a follow-up appointment in 2 weeks for further evaluation and management. Please note that this note was generated using a voice recognition program, and errors may have occurred during merchandise flow team member. [id number]-[id number] of cervix including upper vagina with biopsy and ECC Procedure code (CPT) selection complete Assessment & Plan Assessment & Plan (1) LGSIL on Pap smear of cervix: Comment: HPV high-risk positive, HPV 16/18 negative Code(s): R87.612 - Low grade squamous intraepithelial lesion on cytologic smear of cervix (LGSIL) Category: Medical Plan: Discussed with the patient the result of her abnormal pap, its significance, risk of progression, persistence, and regression. the false positive/negative rate of a Pap smear as a screening test in detecting cervical cancer and the indication for a diagnostic test -colposcopy, biopsy, endocervical curettage. The patient verbalized understanding and agreed with the plan, all questions answered. Colpo biopsy ECC done, see procedure note Orders: Orders AMB Colposcopy Today R87.612 - Low grade squamous intraepithelial lesion on cytologic smear of cervix (LGSIL) Coding Level of Care Code Procedure Only Diagnoses LGSIL on Pap smear of cervix R87.612 CPT Codes Colposcopy - CPT: 52995-Cnuetgpoe of cervix including upper vagina with biopsy and ECC ([id number])
--- OUTSIDE RECORDS SUMMARY | 2024-07-24 12:03 | XMS_ITS | Data Portability ---
Author Organization [facility], [facility] Address [address] [place] [address] Care Team Providers Care Inner Tube Cutter Name Role Phone ENRIQUE VAZQUEZ MD Primary Care Provider [phone] Assessment Encounter Date Assessment Date Assessment LastModified [...] inclusion cyst 2013 014 [place] [address], [address] [facility], [facility] [address], [address], 5 08:11:12 physical therapist referral 2012 013 [email or web address] [facility] (Imaging), [address], [place], [address], 3 10:04:38 Procedures None recorded. Surgeries None recorded. Imaging None recorded. Medication Orders levothyroxi ne 100 mcg tablet 2013 [facility] [employer], [address] [place], [address], 4 09:30:26 Patient TargetsNo targets recorded. Patient Instructions Encounter Date Encounter Id Patient Instructions Last Modified By Organization Details Last Modified Time 12/26/2012 [id number] GOALS: -? ? ? Eat supper meal [...] weeks. [email or web address] Not available 01/02/2013 14:08:40 01/11/2013 [id number] plantar fasciitis: care instructions juan [email or web address] Not available 01/11/2013 08:28:31 01/23/2013 [id number] GOALS:? ? ? (continued) -? ? ? [...] low calorie drink like V8 juice of [employer]cher; offer to bring a low-calorie item or [...] followup msobil Not available 01/23/2013 15:46:18 04/12/2013 [id number] learning about mood disorders maurice Not available 04/13/2013 12:36:05 received [facility] records afer the visit- which indicated she took 20 pills of motrin 200 mg. does not appear BMP was done.? ? ? patient had no complaints related to kdineys or GI. makrus Not available 04/12/2013 09:32:32 01/31/2014 [id number] Well Visit, Ages 18 to 65: Care [...] and Address Organization Details Recorded Time Obesity 586694006 Active Enriqeu Jeongcolo D.O. [address] [place] [address], [phone], [facility] 4 09:30:25 Hypothyroidism 48847036 Active Monique barakat, [facility] 6 14:15:00 Major depressive disorder 102748506 Active Enrique Jeongcolo D.O. [address] [place] [address], [phone], [facility] 4 21:33:26 Problem Notes None recorded. Procedures Surgical History Date Name Laterality Status Provider Name and Address Organization Details Recorded Time 4 Suture/stapl e Removal completed Enrique Hammondlo D.O. [address] [place] [address], [phone], [facility] 04/12/2013 09:26:32 Imaging Results None recorded. Procedure [...] Address Organization Details Last Updated DateTime 12/26/2012 [id number] liset Vick, RIVERN, LDN, [address], [address], [facility] 12/26/2012 10:42:23 Date Recorded Body height Body weight Body mass index (BMI) Body temperature Heart rate Systolic blood pressure Diastolic blood pressure Provider Name and Address Organization Details Last Updated DateTime 10/23/201 3 162.56 cm 65226.3 12041 g 37.3 kg/m2 98.2 [degF] 66 /min 102 mm[Hg] 80 mm[Hg] Thea Cunha [facility] 3 08:03:15 Date Recorded Body weight Provider Name an d Address Organization Details Last Updated DateTime 01/23/2013 65558.489079 g Latoya Vick RDN, GAVINO, [address], [address], [facility] 01/23/2013 13:37:55 Date Recorded Body weight Body height Heart rate Body mass index (BMI) Systolic blood pressure Diastolic blood pressure Provider Name and Address Organization Details Last Updated DateTime 4 55601.2 1296 g 162.56 cm 110 /min 35.7 kg/m2 118 mm[Hg] 58 mm[Hg] Kandace Sparrow LPN [facility] 4 09:00:13 Date Recorded Body weight Heart rate Body mass index (BMI) Body height Systolic blood pressure Diastolic blood pressure Provider Name and Address Organization Details Last Updated DateTime 4 860381. 846421 g 72 /min 38.1 kg/m2 162.56 cm 122 mm[Hg] 78 mm[Hg] Kandace Sparrow LPN [facility] 4 09:07:01 Social History Question Answer Notes LastModified by Organizat ion Details LastModified Time Tobacco Smoking Status Never Smoker [facility] 14:32:46 What Is Your Level Of Alcohol Consumption? Occasional Information not available 01/31/2014 What Is Your Level Of Caffeine Consumption? Moderate Information not available 08/01/2012 What Type Of Diet Are You Following? 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 1 Information not available 01/31/2014 Are There Any Guns Present In Your Home? No [email or web address] Information not available 08/01/2012 Live Alone Or With Others? With Others [email or web address] Information not available 08/01/2012 Patient Has Health Care Proxy Signed And In Chart No Form Given To Patient 01/31/14 Information not available 01/31/2014 Marital Status Single Informatio n not available 08/01/2012 Mosquito Repellent Used Routinely Yes [email or web address] Information not available 08/01/2012 How Many Children Do You Have? 0 [email or web address] Information not available 08/01/2012 Seat Belts Used Routinely Yes [email or web address] Information not available 08/01/2012 Are You Sexually Active? No Information not available 01/31/2014 Smoke Alarm In Home Yes [email or web address] Information not available 08/01/2012 General Stress Level Medium Information not available 01/31/2014 Do You Use Sunscreen Routinely? Yes [email or web address] Information not available 08/01/2012 Sex: Unknown Functional [...] Time Tdap 08/02/2012 completed Not [facility] 04/08/2019 02:16:05 Influenza, split virus, trivalent, PF 01/31/2014 completed Not Available [facility] 2019 02:35:42 Past Encounters Encounter ID Performer Location Encounter Start Date Encounter Closed Date Diagnosis/Indication Diagnosis SNOMED-CT Code Diagnosis ICD10 Code Diagnosis Note [id number] Nasreen Lowery [place] , [facility] [place] [address] [place], [place] [address] 08/01/2012 14:17:47 08/01/2012 15:31:18 [id number] Latoya Vick RDN, FARHATN, [address] [address] 09/19/2012 13:27:03 09/19/2012 14:43:21 [id number] Latoya Vick RDN, FARHATN, [address] [address] 11/18/2012 10:19:28 11/18/2012 11:42:07 Obesity 176907823 [id number] Latoya Vick RDN, FARHATN, [address] [address] 12/26/2012 10:21:07 12/26/2012 12:00:33 Obesity 990380931 [id number] Eleazar Lopez MD , [facility] [place] [address] [place] [address] 01/11/2013 07:52:44 01/11/2013 08:28:38 Plantar fasciitis 075964069 Taped today. Take ibuprofen (200mg pills) 3 pills, 3 times a day. Or naproxen (Aleve) 220mg pills, 2 pills twice a day. Ice roller. Book with physical thetrapy. [id number] Latoya Vick RDN, GAV[place], [address] [address] 01/23/2013 13:24:27 01/23/2013 14:38:38 Obesity 675891799 [id number] Enrique KingstonOAnita , [facility] [place] [address] [place] [address] 04/12/2013 08:25:38 04/12/2013 09:25:47 Laceration of wrist 601763966 removed elmer from forearm. tolerated well. no sign of redness or infection Depressive disorder 51260927 suicidal attemtp- slit her wrist 1 week ago after break up from 8 year [facility] ip Hypothyroidism 17266600 [id number] Enrique KingstonO. , [facility] [address] [place] [address] 01/31/2014 08:43:45 01/31/2014 09:24:54 Hypothyroidism 10776402 tsh 4- feels better when tsh around 1-2. will increase dose to 100 dose change- will repeat tsh in 3 months Adult heal th examination 861411759 see Risk Assessment and Lifestyle Change Counseling section above Counseling 113500122 Influenza vaccine needed [id number] 106 Epidermoid cyst of skin 552926538 scalp lesion, has been there for a long time, more itchy- would like removed Obesity 213552309 bmi 38 encouraged increased exercise Health Concerns Section Related Observation LastModified by Organization Detai ls LastModified Time None Recorded Concern Status LastModified by Organization Details LastModified Time None Recorded Advance Directives Directive None Recorded Payers Encounter Date Sequence Insurance Name Policy Number Policy Cardenas Covered Member ID Cardenas Member ID Guarantor Name 12/26/2012 1 [employer] - [employer] (POS II) [id number] Mimi M Vanessa [id number] Mimi Vanessa 01/11/2013 1 [employer] [place] (POS II) [id number] Mimi M Vanessa [id number] Mimi Vansesa 01/23/2013 1 [employer] - [place] (POS II) [id number] Mimi M Vanessa [id number] Mimi Vanessa 04/12/2013 2 *SELF PAY* Artur nnie Vanessa 04/12/2013 1 [facility] [id number] Mimi M Vanessa [id number] Mimi Vanessa 01/31/2014 1 [facility] [place] [id number] Mimi M Vanessa [id number] Mimi Vanessa Notes Date Note Type Note Provider Name and Address Organization Details Recorded Time 01/11/2013 text/html on her feet a lo t for work/commute. now 4 days pain in arch of RT foot. no discrete trauma though. ice/asa some help. Moise Le PA-C [address] [place] [address], [phone], [facility] 01/11/2013 08:19:46 04/12/2013 text/html breakup with boyfriend [...] mostly just feels itchy Enrique Vazquez D.O. [address] [place] [address], [address], [facility] 04/12/2013 09:32:41 OBGyn Episode No OBEpisode recorded.
--- OUTSIDE RECORDS SUMMARY | 2024-07-24 12:03 | XMS_ITS | Clinical Summary ---
Author Organization [facility] Address [address] [place] [id number] Care Team Providers Care Bar Attendant Name Role Phone Evelyne Ring MD Primary [...] Vaccine (2023-2 5 season) 2023 Influenza Vaccine (Season Ended) 2024 HIB Vaccines Aged Out No longer eligi [...] age to complete this topic Meningococcal B Vaccine Aged Out No l onger eligible based on patient's age to complete [...] age to complete this topic Care Teams Bar Attendant Relationship Specialty Start Date End Date Evelyne Ring MD [address] [place] [address] PCP - General Internal Medicine 10/04/20
== END 2024-07-24 12:00 | disposition home or self-care (01) ==
LOC: HO.HWS 10:38
PROVIDERS: PCP Internal Medicine; Visit Provider Obstetrics & Gynecology
DX: R87.612 Low grade squamous intraepithelial lesion on cytologic smear of cervix (LGSIL) (principal)
CPT/HCPCS: 57454

== ENCOUNTER 2024-08-21 07:57 | Outpatient (AMB) | payer OTHER, SELFPAY ==
--- NOTE | 2024-08-21 07:58 | A.OFFVIS_ITS ---
Vital Signs 08/21/24 07:58 Height 5 ft 4 in Intake Visit Reasons: Colpo results Allergies gluten Allergy (Unknown, Verified 07/24/24 10:53) Unknown HPI Comments Details: The patient scheduled a telehealth visit post colpo for follow-up. The patient is doing well with no complaints. The pathology showed the following: A. Endocervix, curettage: - Scant fragments of benign endocervical glands; negative for squamous intraepithelial lesion. - Fragments of mid-secretory endometrium. B. Cervix, 3 o'clock, biopsy: Squamous mucosa within normal limits; no endocervical component seen; negative for squamous intraepithelial lesion. C. Cervix, 5 o'clock, biopsy: Low-grade squamous intraepithelial lesion (SARA 1). D. Cervix, 6 o'clock, biopsy: Acute and chronic cervicitis with reactive epithelial changes; negative for squamous intraepithelial lesion. E. Cervix, 7 o'clock, biopsy: Squamous mucosa within normal limits; no endocervical component seen; negative for squamous intraepithelial lesion. F. Cervix, 12 o'clock, biopsy: Chronic cervicitis with reactive epithelial changes; negative for squamous intraepithelial lesion. COMMENT: The atypical cells noted in the patient's previous Pap smear ([id number]; LGSIL; HPV+) correlate with the current biopsies [facility] Medical History Celiac disease Morbid obesity Obesity Vitamin D deficiency Hypothyroidism Surgical History History of placement of ear tubes History of appendectomy Family History Father Type 2 diabetes mellitus History of heart disease Maternal Grandmother History of colon cancer Maternal Grandfather History of colon cancer Paternal Grandmother History of heart disease Mother No problems noted. Paternal Uncle History of heart disease Social History Household Members: Significant Other Both parents involved: Yes Housing: House Are you a primary primary care nurse to a significant other at home: No Alcohol intake: current Alcohol intake frequency: a few times a month Comment: 2x a week 1 glass Patient Tobacco Use Status: Never used Tobacco e-Cigarette/Vaping Use: Never Used Second Hand Smoke Exposure: No service: No Current occupational status: employed Current occupation: [employer] Current occupational exposures/hazards: No Cognitive needs: No Hearing needs: No Vision needs: Yes (glasses) Female Reproductive History Menstrual Age of Menarche: 15 Review of Systems Const All systems reviewed & are unremarkable except as noted in HPI and below Reports as per HPI and Reports no additional complaints GI Reports no additional complaints Reports no additional complaints Telehealth Telehealth Telehealth Platform: Telephone Location of provider rendering services: practice address Location of patient: address on file Patient Identification confirmed using: Name, : Yes Telehealth method: video Patient verbally consented to treatment: Yes Patient verbally consented to billing insurance company: Yes Patient informed of any privacy concerns related to visit: Yes Minutes spent on Phone/Video with Pt.: 2 Assessment & Plan Assessment & Plan (1) Dysplasia of cervix, low grade (SARA 1): Code(s): N87.0 - Mild cervical dysplasia Category: Medical Plan: Discussed with the patient the pathology results of the colposcopy biopsies & endocervical curettage ( mild dysplasia-SARA 1). Discussed with the patient the sensitivity specificity, positive and negative predictive value in detecting cervical cancer in addition discussed the regression, persistence and progression rates. Recommended co-testing in 12 months, if cytology and or HPV are abnormal will proceed was colposcopy biopsy and endocervical curettage, if lesions gets worse or stays persistent for 2 years will proceed with loop electric excision procedure. Instructions given to the patient to schedule a co test appointment in 1 year. All questions answered the patient verbalized understanding. I spent a total of 20 minutes reviewing the chart, talking to the patient via video and documenting in the medical record. Coding Level of Care Code Tele Est Pt Level 3 ([address]71) Diagnoses Dysplasia of cervix, low grade (SARA 1) N87.0
--- OUTSIDE RECORDS SUMMARY | 2024-08-21 07:59 | XMS_ITS | Data Portability ---
Author Organization [facility], [facility] Address [address] [place] [address] Care Team Providers Care Crime Investigator Special Agent Name Role Phone ENRIQUE VAZQUEZ MD Primary Care Provider Assessment Encounter Date Assessment Date Assessment LastModified by Organization Details LastModified Time 12/26/2012 12/26/2012 ASSESSMENT SUMMARY: approx 2# weight loss since last MNT session, 15# overall. Agrees weight loss slowing down, and she wants to improve some of her food choices. She continues to consume a portion of her caloric intake from caloric beverages, though states much less than in the past. Late night meals with boyfriend pose a challenge d/t quantity of food and his preparation methods (higher fat). She will try to work with him [...] the cooked weight of meat, chicken, fish, etc. Meats that have a bone: remove bone, trim the meat before weighing. Scales can also be used to weigh bread products: for instance- one ounce of bread is typically 80 calories. Homemade sliced bread can be weighed, and then the calories calculated: 1.5 oz slice would be 120 calories, etc. - Healthy snacking: healthy protein, grain, fruit andvegsnacks Handout: Thumbs Up for Healthy Food Choices [email or web address] Not available 01/02/2013 14:10:38 01/23/2013 01/23/2013 ASSESSMENT SUMMARY: Approx 2# weight loss x month, 15.6# total. She is averaging about 1/2# per week, and agrees the hypothyroid dx, as well as the limited amount of physical activity is slowing down the weight loss process. Concerned about the holiday meals at other people's homes- variety and quantity of high calorie foods. INSTRUCTION PROVIDED TODAY: - Holiday eating tips: how to manage calories, mindless eating that can occur at parties, etc. (plus Handouts on Holiday Eating, low calorie [...] inclusion cyst 2013 014 [place] [address], [address] [facility], [facility] [address], [place], [address], 5 08:11:12 physical therapist referral 2012 013 [email or web address] en1 [facility] (Imaging), [address] , [place], [address], 3 10:04:38 Procedures None recorded. Surgeries None recorded. Imaging None recorded. Medication Orders levothyroxi ne 100 mcg tablet 2013 014 [address] [facility] [id number] [employer], [address] [place], [address], 4 09:30:26 Patient TargetsNo targets recorded. Patient Instructions Encounter Date Encounter Id Patient Instructions Last Modified By Organization Details Last Modified Time 12/26/2012 [id number] GOALS: - Eat supper meal earlier: bring food to [...] weeks. [email or web address] Not available 01/02/2013 14:08:40 01/11/2013 [id number] plantar fasciitis: care instructions [email or web address] Not available 01/11/2013 08:28:31 01/23/2013 [id number] GOALS: (continued) - Eat supper meal earlier: bring food to work to eat sooner, before you return home. [email or web address] Not available 01/23/2013 15:46:18 - I like your ideas to get a thermos to bring hot food to work and eat a meal there - At holiday parties- try to position yourself away from the food; nurse a low calorie drink like V8 juice of seltzer; offer to bring a low-calorie item or [...] followup [email or web address] Not available 01/23/2013 15:46:18 04/12/2013 [id number] learning about mood disorders maurice Not available 04/13/2013 12:36:05 received [facility] records afer the visit- which indicated she took 20 pills of motrin 200 mg. does not appear BMP was done. patient had no complaints related to kdineys or GI. markus Not available 04/12/2013 09:32:32 01/31/2014 [id number] Well Visit, Ages 18 to 65: Care [...] and Address Organization Details Recorded Time Obesity 349621252 Active Enrique Vazquez D.O. [address] [place] [address], [place], [address], [facility] 4 09:30:25 Hypothyroidism 39815260 Active Monique Gomezdanielleus barakat, [facility] 6 14:15:00 Major depressive disorder 496352660 Active Enrique Furcolo D.O. [address] [facility] [place], [address], [facility] 4 21:33:26 Problem Notes None recorded. Procedures Surgical History Date Name Laterality Status Provider Name and Address Organization Details Recorded Time 4 Suture/stapl e Removal completed Enrique Taylor D.O. [address] [place] [address], [phone], [facility] 04/12/2013 09:26:32 Imaging Results None recorded. Procedure [...] t Available Vitals Date Recorded Body weight Body height Heart rate Body mass index (BMI) Systolic blood pressure Diastolic blood pressure Provider Name and Address Organization Details Last Updated DateTime 4 54125.2 1296 g 162.56 cm 110 /min 35.7 kg/m2 118 mm[Hg] 58 mm[Hg] Kandace Sparrow LPN [facility] 4 09:00:13 Date Recorded Body weight Provider Name an d Address Organization Details Last Updated DateTime 12/26/2012 84085.359623 g Latoya Vick RDN, FARHATN, [facility] [address] [place] [address], [phone], [facility] 12/26/2012 10:42:23 Date Recorded Body height Body weight Body mass index (BMI) Body temperature Heart rate Systolic blood pressure Diastolic blood pressure Provider Name and Address Organization Details Last Updated DateTime 3 162.56 cm 48174.3 20329 g 37.3 kg/m2 98.2 [degF] 66 /min 102 mm[Hg] 80 mm[Hg] Thea Cunha [facility] 3 08:03:15 Date Recorded Body weight Provider Name an d Address Organization Details Last Updated DateTime 01/23/2013 36371.244088 g Latoya Vick, RIVERN, LDN, [address], [address], [facility] 01/23/2013 13:37:55 Date Recorded Body weight Heart rate Body mass index (BMI) Body height Systolic blood pressure Diastolic blood pressure Provider Name and Address Organization Details Last Updated DateTime 4 480794. 160735 g 72 /min 38.1 kg/m2 162.56 cm 122 mm[Hg] 78 mm[Hg] Kandace Sparrow LPN [facility] 4 09:07:01 Social History Question Answer Notes LastModified by Organizat ion Details LastModified Time Tobacco Smoking Status Never Smoker Anastasiia Gama LPN [facility] 08/01/2012 14:32:46 What Is Your Level Of Caffeine Consumption? Moderate [email or web address] Information not available 08/01/2012 What Type Of Diet Are You Following? REGULAR No Red Meat Information not available 08/01/2012 How Many Days In The Past Year Have You Had A Heavy Drinking Consumption (4+ Female, 5+ Male)? 1 Information not available 01/31/2014 Are There Any Guns Present In Your Home? No [email or web address] Information not available 08/01/2012 Live Alone Or With Others? With Others [email or web address] Information not available 08/01/2012 Patient Has Health Care Proxy Signed And In Chart No Form Given To Patient 01/31/14 Information not available 01/31/2014 Marital Status Single [email or web address] Informatio n not available 08/01/2012 Mosquito Repellent Used Routinely Yes [email or web address] Information not available 08/01/2012 How Many Children Do You Have? 0 [email or web address] Information not available 08/01/2012 Seat Belts Used Routinely Yes [email or web address] Information not available 08/01/2012 Are You Sexually Active? No Information not available 01/31/2014 Smoke Alarm In Home Yes Information not available 08/01/2012 General Stress Level Medium Information not available 01/31/2014 Do You Use Sunscreen Routinely? Yes [email or web address] Information not available 08/01/2012 Sex: Unknown Functional Status Question Answer Note LastModified by Organizat ion Details LastModified Time What is your level of alcohol consumption? 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 Family History Relationship [...] SNOMED-CT Code Diagnosis ICD10 Code Diagnosis Note [id number] Nasreen Lowery MD , [facility], OFFICE [address] [place] [address] 08/01/2012 14:17:47 08/01/2012 15:31:18 [id number] Latoya Vick, RIVERN, LDN, [facility] Nutrition -[address] [place] [address] 09/19/2012 13:27:03 09/19/2012 14:43:21 [id number] Latoya Vick RDN, GAVINO, [facility] -[address] [place] [address] 11/18/2012 10:19:28 11/18/2012 11:42:07 Obesity 180940291 [id number] Latoya Vick RDN, GAVINO, [facility] -[address] [place] [address] 12/26/2012 10:21:07 12/26/2012 12:00:33 Obesity 973989456 [id number] MD LINA Gandhi, [facility], OFFICE [address] [place] [address] 01/11/2013 07:52:44 01/11/2013 08:28:38 Plantar fasciitis [id number] Taped today. Take ibuprofen (200mg pills) 3 pills, 3 times a day. Or naproxen (Aleve) 220mg pills, 2 pills twice a day. Ice roller. Book with physical thetrapy. [id number] Latoya Vick RDN, GAVINO, [facility] -[address] [place] [address] 01/23/2013 13:24:27 01/23/2013 14:38:38 Obesity 351091659 [id number] Enrique KingstonOAnita MILLS, [facility], OFFICE [address] [place] [address] 04/12/2013 08:25:38 04/12/2013 09:25:47 Laceration of wrist 706970510 removed elmer from forearm. tolerated well. no sign of redness or infection Depressive disorder 07344872 suicidal attemtp- slit her wrist 1 week ago after break up from 8 year [facility] ip Hypothyroidism 04708738 [id number] Enrique KingstonO. , [facility], OFFICE [address] [place] [address] 01/31/2014 08:43:45 01/31/2014 09:24:54 Hypothyroidism 68385737 tsh 4- feels better when tsh around 1-2. will increase dose to 100 dose change- will repeat tsh in 3 months Adult [facility] examination [id number] see Risk Assessment and Lifestyle Change Counseling section above Counseling [id number] Influenza vaccine needed 6259593557 106 Epidermoid cyst of skin 438558876 scalp lesion, has been there for a long time, more itchy- would like removed Obesity 737705359 bmi 38 encouraged increased exercise Health Concerns Section Related Observation LastModified by Organization Detai ls LastModified Time None Recorded Concern Status LastModified by Organization Details LastModified Time None Recorded Advance Directives Directive None Recorded Payers Encounter Date Sequence Insurance Name Policy Number Policy Cardenas Covered Member ID Cardenas Member ID Guarantor Name 12/26/2012 1 [employer] (POS II) [id number] Mimi M Vanessa [id number] Mimi Vanessa 01/11/2013 1 [employer] (POS II) [id number] Mimi M Vanessa [id number] Mimi Vanessa 01/23/2013 1 [employer] (POS II) [id number] Mimi M Vanessa [id number] Mimi Vanessa 04/12/2013 2 *SELF PAY* Artur nnie Vanessa 04/12/2013 1 [employer] (HMO) [id number] Mimi M Vanessa [id number] Mimi Vanessa 01/31/2014 1 [employer] (HMO) [id number] Mimi M Vanessa [id number] Mimi Vanessa Notes Date Note Type Note Provider Name and Address Organization Details Recorded Time 01/11/2013 text/html on her feet a lo t for work/commute. now 4 days pain in arch of RT foot. no discrete trauma though. ice/asa some help. Moise Le PA-C [address] [place] [address], [place], [address], [facility] 01/11/2013 08:19:46 04/12/2013 text/html breakup with boyfriend [...] mostly just feels itchy Enrique Vazquez D.O. [address] [place] [address], [phone], [facility] 04/12/2013 09:32:41 OBGyn Episode No OBEpisode recorded.
== END 2024-08-21 08:17 | disposition home or self-care (01) ==
LOC: HO.HWS 07:57
PROVIDERS: PCP Internal Medicine; Visit Provider Obstetrics & Gynecology
DX: N87.0 Mild cervical dysplasia (principal)
CPT/HCPCS: 99213

== ENCOUNTER 2024-10-02 09:21 | Outpatient (AMB) | payer OTHER, SELFPAY ==
--- NOTE | 2024-10-02 09:35 | A.OFFVIS_ITS ---
VS Expanded 10/02/24 09:36 Height 5 ft 4 in Weight 218 lb 14.704 oz BMI 37.6 Intake Visit Reasons: celiac disease Allergies gluten Allergy (Unknown, Verified 10/09/24 09:08) Unknown Nutrition Presentation Details: Pt presents for MNT f/u for Celiac Disease Pt reports gradually working on reducing gluten containing foods, feels more comfortable , also choosing lactose free food options, more knowledgeable. Has questions regarding low sucrose diet related to recent lab results which will discuss in detail with next week. PFSH Medical History Celiac disease Morbid obesity Obesity Vitamin D deficiency Hypothyroidism Surgical History (Updated 10/09/24 @ 09:09 by KATHLEEN Bob) Hx of colonoscopy History of esophagogastroduodenoscopy (EGD) History of placement of ear tubes History of appendectomy Family History Father Type 2 diabetes mellitus History of heart disease Maternal Grandmother History of colon cancer Maternal Grandfather History of colon cancer Paternal Grandmother History of heart disease Mother No problems noted. Paternal Uncle History of heart disease Social History Household Members: Significant Other Both parents involved: Yes Housing: House Are you a primary child care leader to a significant other at home: No Alcohol intake: current Alcohol intake frequency: a few times a month Comment: 2x a week 1 glass Patient Tobacco Use Status: Never used Tobacco e-Cigarette/Vaping Use: Never Used Second Hand Smoke Exposure: No service: No Current occupational status: employed Current occupation: [employer] Current occupational exposures/hazards: No Cognitive needs: No Hearing needs: No Vision needs: Yes (glasses) Female Reproductive History Menstrual Age of Menarche: 15 Assessment & Plan Assessment & Plan (1) Celiac disease: Code(s): K90.0 - Celiac disease Category: Medical Plan: Wt: 100 Kg ( 05/16 ), 103kg (07/14), 99kg (10/13) Est kcal needs as per MSJ: 2000 (40% carb, 30% protein/fat) Est fluid needs as per 25-30 ml/d: 2500 Est prot per day as per 1 g/kg bw: 100 Recommend fiber intake : 8-10 g per day and gradually increase to 25-28 g per day for women and 35-38 g for men or as tolerated Recommend sodium intake per day : less than 2000 mg Educated patient on: ( R = reviewed V = verbalizes understanding N/R = needs review N/A = not applicable * Food sources of carbohydrate, adequate serving sizes and its role in various health conditions: R V N/R * Differences between complex carbohydrates a simple carbohydrates, role of fiber in diet, Gluten free options: R , V * Lactose free options: R, V * introduction to low sucrose diet : R * Lean protein sources of foods: R , V (goal 80- 100 g /d) * Differences between types of fats and role in diet (mono on saturated fat fatty acids, saturated fatty acids, trans fats): R V N/R * Food sources of sodium in salt and healthy modifications for heart health in kidney health: R V R/V * Vitamins and minerals, choose fortified gluten free options: R , V * Healthy plate method concept: R * Physical activity: Benefits a precaution: R Patient Instructions: Include at least 2-3 oz of lean protein foods in 2-3 meals/day along with a combination of foods rich in vitamin C - see list of GF low sucrose food options and meal ideas keep hydrated by having water with meals/snack , almond milk 3 cups/day Coding Level of Care Code Nutr Indiv Subseq (91980) Diagnoses Celiac disease K90.0 Time Spent (min) 30
[2024-10-02 09:36] VITALS: BMI 37.6
--- OUTSIDE RECORDS SUMMARY | 2024-10-02 09:46 | XMS_ITS | Clinical Summary ---
Author Organization [facility] Address [address] [place] [address] Care Team Providers Care Distance Education Director Name Role Phone Evelyne Ring MD Primary [...] (2023-2 5 season) 2023 Influenza Vaccine (#1) 2024 HIB Vaccines Aged Out No longer [...] 5 Years) and At-Risk Patients (6 to 49 Years) Aged Out No longer eligible b ased on patient's age to complete this topic RSV Immunization Patients Un antonio 20 months Aged Out No longer eligible b ased on patient's age to complete this topic Varicella Vaccines Aged Out No longer eligible based on patient's age to complete this topic Care Teams Distance Education Director Relationship Specialty Start Date End Date Evelyne Ring MD [address] [place] [address] PCP - General Internal Medicine 10/04/20
--- OUTSIDE RECORDS SUMMARY | 2024-10-02 09:46 | XMS_ITS | Data Portability ---
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 Surgeries None recorded. Imaging None recorded. Medication Orders levothyroxi ne 100 mcg tablet 2013 014 [address] [id number] [employer], [address] [place], [address], 4 09:30:26 Patient TargetsNo targets recorded. Patient Instructions Encounter Date Encounter Id Patient Instructions Last Modified By Organization Details Last Modified Time 12/26/2012 [id number] GOALS: - Eat supper meal earlier: bring [...] weeks. msobil Not available 01/02/2013 14:08:40 01/11/2013 [id number] plantar fasciitis: care instructions juan [email or web address] Not available 01/11/2013 08:28:31 01/23/2013 [id number] GOALS: (continued) - Eat supper meal earlier: [...] followup msobil Not available 01/23/2013 15:46:18 04/12/2013 [id number] learning about mood disorders maurice Not available 04/13/2013 12:36:05 received [facility] records afer the visit- which indicated she took 20 pills of motrin 200 mg. does not appear BMP was done. patient had no complaints related to kdineys or GI. markus Not available 04/12/2013 09:32:32 01/31/2014 [id number] Well Visit, Ages 18 to 65: Care [...] and Address Organization Details Recorded Time Obesity 336947907 Active Enrique Vazquez D.O. [address] [place], [address], [facility] 4 09:30:25 Hypothyroidism 99223011 Active Monique barakat, [facility] 6 14:15:00 Major depressive disorder 531869683 Active Enrique Jeongcolo D.O. [address] [place], [address], [facility] 4 21:33:26 Problem Notes None recorded. Procedures Surgical History Date Name Laterality Status Provider Name and Address Organization Details Recorded Time 4 Suture/stapl e Removal completed Enrique Jean-Paulemre D.O. [address] [place] [address], [address], [facility] 04/12/2013 09:26:32 Imaging Results None recorded. Procedure [...] Heart rate Body mass index (BMI) Systolic And Diastolic Provider Name and Address Organization Details Last Updated DateTime 04/12/2013 46897.21 296 g 162.56 cm 110 /min 35.7 kg/m2 118/58 mm[Hg] Kandace Sparrow LPN [facility] 04/12/2013 09:00:13 Date Recorded Body weight Provider Name an d Address Organization Details Last Updated DateTime 12/26/2012 07096.340708 g Latoya Vick RDN, FARHATN, [facility] [address] [place], [address], [facility] 12/26/2012 10:42:23 Date Recorded Body height Body weight Body mass index (BMI) Body temperature Heart rate Systolic And Diastolic Provider Name and Address Organization Details Last Updated DateTime 3 162.56 cm 06801.3 50109 g 37.3 kg/m2 98.2 [degF] 66 /min 102/80 mm[Hg] Thea Castanostefanie [facility] 3 08:03:15 Date Recorded Body weight Provider Name an d Address Organization Details Last Updated DateTime 01/23/2013 05070.368036 g Latoya Vick, HARRIET, LDN, [address], [address], [facility] 01/23/2013 13:37:55 Date Recorded Body weight Heart rate Body mass index (BMI) Body height Systolic And Diastolic Provider Name and Address Organization Details Last Updated DateTime 01/31/2014 839227.9 29144 g 72 /min 38.1 kg/m2 162.56 cm 122/78 mm[Hg] Kandace Sparrow LPN [facility] 01/31/2014 09:07:01 Social History Question Answer Notes LastModified by Organizat ion Details LastModified Time Tobacco Smoking Status Never Smoker [facility]astasi[facility] 08/01/2012 14:32:46 What Is Your Level Of Caffeine Consumption? Moderate [email or web address] Information not available 08/01/2012 What Type Of Diet Are You Following? REGULAR No Red Meat [email or web address] Information not available 08/01/2012 How Many Days In The Past Year Have You Had A Heavy Drinking Consumption (4+ Female, 5+ Male)? 1 Information not available 01/31/2014 Are There Any Guns Present In Your Home? No [email or web address] Information not available 08/01/2012 Live Alone Or With Others? With Others [email or web address] Information not available 08/01/2012 Patient Has Health Care Proxy Signed And In Chart No Form Given To Patient 01/31/14 Information not available 01/31/2014 Marital Status Single [email or web address] Informatio n not available 08/01/2012 Mosquito Repellent Used Routinely Yes [email or web address] Information not available 08/01/2012 How Many Children Do You Have? 0 [email or web address] Information not available 08/01/2012 Seat Belts Used Routinely Yes [email or web address] Information not available 08/01/2012 Are You Sexually Active? No Information not available 01/31/2014 Smoke Alarm In Home Yes [email or web address] Information not available 08/01/2012 General Stress Level Medium Information not available 01/31/2014 Do You Use Sunscreen Routinely? Yes [email or web address] Information not available 08/01/2012 Sex: Unknown Functional Status Question Answer Note LastModified by Organizat ion Details LastModified Time What is your level of alcohol consumption? 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 Information not available 01/31/2014 Mental Status [...] Recorded Time Tdap 08/02/2012 completed Not Available [facility] 04/08/2019 02:16:05 Influenza, split virus, trivalent, PF 01/31/2014 completed Not Available [facility] 2019 02:35:42 Past Encounters Encounter ID Performer Location Encounter Start Date Encounter Closed Date Diagnosis/Indication Diagnosis SNOMED-CT Code Diagnosis ICD10 Code Diagnosis Note [id number] Nasreen Lowery MD , [facility] [address] [place] [address] 08/01/2012 14:17:47 08/01/2012 15:31:18 [id number] Latoya Vick, RIVERN, LDN, [facility]NOTE 3]ES Nutrition [place] [address] [place] [address] 09/19/2012 13:27:03 09/19/2012 14:43:21 [id number] Latoya Vick RDN, GAVINO, [address] [address] 11/18/2012 10:19:28 11/18/2012 11:42:07 Obesity 837093355 [id number] Latoya Vick RDN, LDN, [address] [address] 12/26/2012 10:21:07 12/26/2012 12:00:33 Obesity 204418150 [id number] Eleazar Lopez MD , [facility] [address] [place] [address] 01/11/2013 07:52:44 01/11/2013 08:28:38 Plantar fasciitis 001121169 Taped today. Take ibuprofen (200mg pills) 3 pills, 3 times a day. Or naproxen (Aleve) 220mg pills, 2 pills twice a day. Ice roller. Book with physical thetrapy. [id number] Latoya Vick RDN, GAVINO, [address] [address] 01/23/2013 13:24:27 01/23/2013 14:38:38 Obesity 917961112 [id number] Enrique MILLS, [facility] [address] [place] [id number] 04/12/2013 08:25:38 04/12/2013 09:25:47 Laceration of wrist 421269385 removed elmer from forearm. tolerated well. no sign of redness or infection Depressive disorder 12214505 suicidal attemtp- slit her wrist 1 week ago after break up from 8 year [facility] ip Hypothyroidism 75039326 [id number] Enrique MILLS, [facility] [address] [address] [place] [id number] 01/31/2014 08:43:45 01/31/2014 09:24:54 Hypothyroidism 69795027 tsh 4- feels better when tsh around 1-2. will increase dose to 100 dose change- will repeat tsh in 3 months Adult [facility] th examination 826989129 see Risk Assessment and Lifestyle Change Counseling section above Counseling 766472565 Influenza vaccine needed 9090082404 106 Epidermoid cyst of skin 690301418 scalp lesion, has been there for a long time, more itchy- would like removed Obesity 497792904 bmi 38 encouraged increased exercise Health Concerns Section Related Observation LastModified by Organization Detai ls LastModified Time None Recorded Concern Status LastModified by Organization Details LastModified Time None Recorded Advance Directives Directive None Recorded Payers Insurance Date Sequence Insurance Name Policy Number Policy Cardenas Covered Member ID Cardenas Member ID Guarantor Name 05/02/2024 1 C[employer] (HMO) [id number] Mimi Swensonroches [id number] Mimi Mendez 05/02/2024 1 AET[employer] (POS II) [id number] Mimi Swensonroches [id number] Mimi Vanessa 06/30/2013 2 *SELF PAY* Artur isabel Mendez Notes Date Note Type Note Provider Name and Address Organization Details Recorded Time 01/11/2013 text/html on her feet a lo t for work/commute. now 4 days pain in arch of RT foot. no discrete trauma though. ice/asa some help. Moise Le PA-C [address] [place], [address], [facility] 01/11/2013 08:19:46 04/12/2013 text/html breakup with boyfriend [...] no fevers mostly just feels itchy Enrique Taylor D.O. [address] [place], [address], [facility] 04/12/2013 09:32:41 OBGyn Episode No OBEpisode recorded.
== END 2024-10-02 10:06 | disposition home or self-care (01) ==
LOC: HO.ENCR 09:21
PROVIDERS: PCP Internal Medicine; Visit Provider Dietitian, Registered
DX: K90.0 Celiac disease (principal)

== ENCOUNTER → 2024-10-02 09:21 | Outpatient (BNVA) | payer OTHER, SELFPAY | PROVIDERS: PCP Internal Medicine; Visit Provider Dietitian, Registered | DX: K90.0 Celiac disease (principal) | CPT/HCPCS: 97803 ==

== ENCOUNTER 2024-10-09 08:58 | Outpatient (REF) | payer OTHER, SELFPAY ==
[2024-10-09 11:11] LABS: Ferritin 133 ng/mL (10-250)
[2024-10-12 06:29] LABS: Transglutaminase Ab IgG <1.0 U/mL
== END 2024-10-09 08:59 | disposition home or self-care (01) ==
LOC: HO.LAB 08:58
PROVIDERS: PCP Internal Medicine; Visit Provider Internal Medicine Gastroenterology
DX: R10.33 Periumbilical pain (principal); G89.29 Other chronic pain; K90.0 Celiac disease
CPT/HCPCS: 36415; 82306; 82728; 84630; 86258; 86364; 99212

== ENCOUNTER 2024-10-09 08:58 | Outpatient (AMB) | payer OTHER, SELFPAY ==
--- NOTE | 2024-10-09 09:05 | A.OFFVIS_ITS ---
Vital Signs 10/09/24 09:08 Height 5 ft 4 in Weight 216 lb 0.848 oz BMI 37.1 BP 122/64 Blood Pressure Location Lt brachial Position Sitting Pulse 64 Intake Visit Reasons: f/u celiac disease Intake Note: Mimi presents in the office as a follow up for her celiac disease. CC: States she had an EGD and COOLO and interested for results. 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 Required: No Allergies gluten Allergy (Unknown, Verified 10/09/24 09:08) Unknown HPI HPI f/u celiac disease: Details: 43 yr old f with hashimotos thyroiditis here for f/u RECAP: She was checked for celiac -routine and v high titers per labs she had noted that if she ate gluten she would feel terrible for last 5 yrs she had diarrhea if eats gluten she has nausea if she eats gluten no blood in the stool x2 grandparents with colon cancer, and mother had colon polyps EGD, colo 07/18/24: Endoscopy Findings: duodenitis esophagitis Colonoscopy Findings: diverticulosis internal hemorrhoids bx were unremarkable tissue lactase- low, maltase mild low, sucrase mildly low as well INTERIM: EXAM: GENERAL: The patient is well developed and nontoxic. VITAL SIGNS:see workflow HEENT: Nonicteric sclerae, PERRLA, EOMI. Oropharynx clear. Moist mucous membranes. Conjunctivae appear well perfused. No thyroid mass. CHEST: Chest wall is nontender. HEART: Regular rate and rhythm without murmurs. LUNGS: Clear to auscultation bilaterally. ABDOMEN: Soft, positive bowel sounds, nontender, no organomegaly.no flank tenderness SKIN: No rash, no excessive bruising, petechiae, or purpura. NEUROLOGIC: Cranial nerves II-XII intact without motor/sensory deficit. Psych: normal affect A/P: 1/ celiac disease based on serology, bx were nml but she had enteritis on clinical exam, could be sampling error 2/ FH of crc with x 2 second deg relatives with CRC 3/ lactase, sucrase and maltase def PLAN: 1/ recheck celiac serologies 2/ zinc supplement, vit D 1000 units, multi vitamin 3/ diet sheet for low sucrose diet 4/ DEXA at future point [facility] Medical History Celiac disease Morbid obesity Obesity Vitamin D deficiency Hypothyroidism Surgical History (Updated 10/09/24 @ 09:09 by KATHLEEN Bob) Hx of colonoscopy History of esophagogastroduodenoscopy (EGD) History of placement of ear tubes History of appendectomy Family History Father Type 2 diabetes mellitus History of heart disease Maternal Grandmother History of colon cancer Maternal Grandfather History of colon cancer Paternal Grandmother History of heart disease Mother No problems noted. Paternal Uncle History of heart disease Social History Household Members: Significant Other Both parents involved: Yes Housing: House Are you a primary care center manager to a significant other at home: No Alcohol intake: current Alcohol intake frequency: a few times a month Comment: 2x a week 1 glass Patient Tobacco Use Status: Never used Tobacco e-Cigarette/Vaping Use: Never Used Second Hand Smoke Exposure: No service: No Current occupational status: employed Current occupation: [employer] Current occupational exposures/hazards: No Cognitive needs: No Hearing needs: No Vision needs: Yes (glasses) Female Reproductive History Menstrual Age of Menarche: 15 Physical Exam Vital Signs: Last Vital Signs Pulse 64 10/09/24 09:08 BP 122/64 10/09/24 09:08 BMI result Body Mass Index 37.1 Assessment & Plan Assessment & Plan (1) Celiac disease: Code(s): K90.0 - Celiac disease Category: Medical Plan: as above Orders: Orders Transglutaminase Ab IgG Today G89.29 - Other chronic pain, K90.0 - Celiac disease, R10.33 - Periumbilical pain Gliadin Ab Panel Today K90.0 - Celiac disease Zinc Today K90.0 - Celiac disease Transglutaminase IgA Today K90.0 - Celiac disease Vitamin D 25-OH Total Today K90.0 - Celiac disease Ferritin Today K90.0 - Celiac disease Coding Level of Care Code Est Pt Level 3 (90566) Diagnoses Celiac disease K90.0
[2024-10-09 09:08] VITALS: BP 122/64; PULSE 64; BMI 37.1
--- OUTSIDE RECORDS SUMMARY | 2024-10-09 09:11 | XMS_ITS | Clinical Summary ---
Author Organization [facility] Address [address] [place] [address] Care Team Providers Care Patient Services Assistant Name Role Phone Evelyne Ring MD Primary [...] 11/20/2003 COVID-19 Vaccine (2023-2 5 season) 2023 Depression Screening 03/22/2024 Influenza Vaccine (#1) 2024 HIB Vaccines Aged [...] age to complete this topic Care Teams Patient Services Assistant Relationship Specialty Start Date End Date Evelyne Ring MD [address] [place] [address] PCP - General Internal Medicine 10/04/20
--- OUTSIDE RECORDS SUMMARY | 2024-10-09 09:11 | XMS_ITS | Data Portability ---
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 Surgeries None recorded. Imaging None recorded. Medication Orders levothyroxi ne 100 mcg tablet 2013 014 [address] [id number] [employer], [address] [place], [address], 4 09:30:26 Patient TargetsNo targets recorded. Patient Instructions Encounter Date Encounter Id Patient Instructions Last Modified By Organization Details Last Modified Time 12/26/2012 [id number] GOALS: - Eat supper meal earlier: bring [...] weeks. msobil Not available 01/02/2013 14:08:40 01/11/2013 [id number] plantar fasciitis: care instructions juan [email or web address] Not available 01/11/2013 08:28:31 01/23/2013 [id number] GOALS: (continued) - Eat supper meal earlier: [...] followup [email or web address] Not available 01/23/2013 15:46:18 04/12/2013 [id number] learning about mood disorders maurice Not available 04/13/2013 12:36:05 received [facility] records afer the visit- which indicated she took 20 pills of motrin 200 mg. does not appear BMP was done. patient had no complaints related to kdineys or GI. markus Not available 04/12/2013 09:32:32 01/31/2014 [id number] Well Visit, Ages 18 to 65: Care [...] and Address Organization Details Recorded Time Obesity 184394592 Active Enrique Vazquez D.O. [address] [place], [address], [facility] 4 09:30:25 Hypothyroidism 85287028 Active Monique barakat, [facility] 6 14:15:00 Major depressive disorder 872228102 Active Enrique Jeongcolo D.O. [address] [place], [address], [facility] 4 21:33:26 Problem Notes None recorded. Procedures Surgical History Date Name Laterality Status Provider Name and Address Organization Details Recorded Time 4 Suture/stapl e Removal completed Enrique Jean-Paulemre D.O. [address] [place] [address], [address], [facility] 04/12/2013 09:26:32 Imaging Results None [...] Address Organization Details Last Updated DateTime 04/12/2013 17950.21 296 g 162.56 cm 110 /min 35.7 kg/m2 118/58 mm[Hg] Kandace Sparrow LPN [facility] 04/12/2013 09:00:13 Date Recorded Body weight Provider Name an d Address Organization Details Last Updated DateTime 12/26/2012 98703.309597 g Latoya Vick RDN, FARHATN, [facility] [address] [place], [address], [facility] 12/26/2012 10:42:23 Date Recorded Body height Body weight Body mass index (BMI) Body temperature Heart rate Systolic And Diastolic Provider Name and Address Organization Details Last Updated DateTime 3 162.56 cm 89285.3 42888 g 37.3 kg/m2 98.2 [degF] 66 /min 102/80 mm[Hg] Thea Castanostefanie [facility] 3 08:03:15 Date Recorded Body weight Provider Name an d Address Organization Details Last Updated DateTime 01/23/2013 45300.248428 g Latoya Vick, HARRIET, LDN, [address], [address], [facility] 01/23/2013 13:37:55 Date Recorded Body weight Heart rate Body mass index (BMI) Body height Systolic And Diastolic Provider Name and Address Organization Details Last Updated DateTime 01/31/2014 016476.9 30722 g 72 /min 38.1 kg/m2 162.56 cm 122/78 mm[Hg] Kandace Sparrow LPN [facility] 01/31/2014 09:07:01 Social History Question Answer Notes LastModified by Organizat ion Details LastModified Time Tobacco Smoking Status Never Smoker [facility]astasiia G[facility] 08/01/2012 14:32:46 What Is Your Level Of Caffeine Consumption? Moderate [email or web address] Information not available 08/01/2012 What Type Of Diet Are You Following? REGULAR No Red Meat [email or web address] Information not available 08/01/2012 How Many Days In The Past Year Have You Had A Heavy Drinking Consumption (4+ Female, 5+ Male)? 1 Information not available 01/31/2014 Are There Any Guns Present In Your Home? No [email or web address] Information not available 08/01/2012 Live Alone Or With Others? With Others [email or web address] Information not available 08/01/2012 Patient Has Health Care Proxy Signed And In Chart No Form Given To Patient 01/31/14 Information not available 01/31/2014 Marital Status Single [email or web address] Informatio n not available 08/01/2012 Mosquito Repellent Used Routinely Yes [email or web address] Information not available 08/01/2012 How Many Children Do You Have? 0 [email or web address] Information not available 08/01/2012 Seat Belts Used Routinely Yes [email or web address] Information not available 08/01/2012 Are You Sexually Active? No Information not available 01/31/2014 Smoke Alarm In Home Yes [email or web address] Information not available 08/01/2012 General Stress Level Medium Information not available 01/31/2014 Do You Use Sunscreen Routinely? Yes [email or web address] Information not available 08/01/2012 Sex: Unknown Functional Status Question Answer Note LastModified by Organizat ion Details LastModified Time What is your level of alcohol consumption? 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[employer]o Information not available 01/31/2014 Mental Status [...] at 37 yo Medical History Condition Response Suicide Attempt Y Hypothyroid Y Gynecological History Statement/Question Response Menses Monthly N Obstetrics History GPAL:G 0 P 0 0 0 0 Immunizations Vaccine Type Date Status Note Provider Nam e and Address Organization Details Recorded Time Tdap 08/02/2012 completed Not Available [facility] 04/08/2019 02:16:05 Influenza, split virus, trivalent, PF 01/31/2014 completed Not Available [facility] 2019 02:35:42 Past Encounters Encounter ID Performer Location Encounter Start Date Encounter Closed Date Diagnosis/Indication Diagnosis SNOMED-CT Code Diagnosis ICD10 Code Diagnosis Note [id number] Nasreen Lowery MD , [facility] [address] [place] [address] 08/01/2012 14:17:47 08/01/2012 15:31:18 [id number] Latoya Vick, RIVERN, LDN, [facility] Nutrition [place] [address] [place] [address] 09/19/2012 13:27:03 09/19/2012 14:43:21 [id number] Latoya Vick RDN, GAVINO, [address] [address] 11/18/2012 10:19:28 11/18/2012 11:42:07 Obesity 567238635 [id number] Latoya Vick RDN, LDN, [address] [address] 12/26/2012 10:21:07 12/26/2012 12:00:33 Obesity 769724729 [id number] Eleazar Lopez MD , [facility] [address] [place] [id number] 01/11/2013 07:52:44 01/11/2013 08:28:38 Plantar fasciitis 000088930 Taped today. Take ibuprofen (200mg pills) 3 pills, 3 times a day. Or naproxen (Aleve) 220mg pills, 2 pills twice a day. Ice roller. Book with physical thetrapy. [id number] Latoya Vick RDN, GAVINO, [address] [address] 01/23/2013 13:24:27 01/23/2013 14:38:38 Obesity 215061915 [id number] Enrique MILLS, [facility] [place] [address] [place] [address] 04/12/2013 08:25:38 04/12/2013 09:25:47 Laceration of wrist 220441445 removed elmer from forearm. tolerated well. no sign of redness or infection Depressive disorder 21634584 suicidal attemtp- slit her wrist 1 week ago after break up from 8 year [facility] ip Hypothyroidism 80211203 [id number] Enrique MILLS, [facility] [place] [address] [place] [id number] 01/31/2014 08:43:45 01/31/2014 09:24:54 Hypothyroidism 72254128 tsh 4- feels better when tsh around 1-2. will increase dose to 100 dose change- will repeat tsh in 3 months Adult [facility] th examination 792911069 see Risk Assessment and Lifestyle Change Counseling section above Counseling 376884895 Influenza vaccine needed 1495089412 106 Epidermoid cyst of skin 533206980 scalp lesion, has been there for a long time, more itchy- would like removed Obesity 824594247 bmi 38 encouraged increased exercise Health Concerns Section Related Observation LastModified by Organization Detai ls LastModified Time None Recorded Concern Status LastModified by Organization Details LastModified Time None Recorded Advance Directives Directive None Recorded Payers Insurance Date Sequence Insurance Name Policy Number Policy Cardenas Covered Member ID Cardenas Member ID Guarantor Name 05/02/2024 1 [employer] (HMO) [id number] Mimi Swensonroches [id number] Mimi Mendez 05/02/2024 1 [employer] (POS II) [id number] Mimi Swensonroches [id number] Mimi Vanessa 06/30/2013 2 *SELF PAY* Artur isabel Mendez Notes Date Note Type Note Provider Name and Address Organization Details Recorded Time 01/11/2013 text/html on her feet a lo t for work/commute. now 4 days pain in arch of RT foot. no discrete trauma though. ice/asa some help. Moise Le PA-C [address] [place], [address], [facility] 01/11/2013 08:19:46 04/12/2013 text/html breakup [...] just feels itchy Enrique Taylor D.O. [address] [place], [address], [facility] 04/12/2013 09:32:41 OBGyn Episode No OBEpisode recorded.
== END 2024-10-09 09:29 | disposition home or self-care (01) ==
LOC: HO.HGI 08:59
PROVIDERS: PCP Internal Medicine; Visit Provider Internal Medicine Gastroenterology
DX: K90.0 Celiac disease (principal)
CPT/HCPCS: 99213

== ENCOUNTER 2024-11-27 09:08 | Outpatient (AMB) | payer OTHER, SELFPAY ==
[2024-11-27 09:52] VITALS: BMI 37.1
--- NOTE | 2024-11-27 09:52 | MHC.AMNUTRGE ---
VS Expanded 11/27/24 09:52 Height 5 ft 4 in Weight 216 lb 4.375 oz BMI 37.1 Intake Visit Reasons: celiac disease Allergies gluten Allergy (Unknown, Verified 10/09/24 09:08) Unknown Nutrition Presentation Details: Pt presents for MNT for Celiac Disease Pt reports working on diet modifications and feeling more comfortable Reports reading food labels with good understanding and reports it is becoming easier to make quick GF modifications when preparing meals at home and feeling comfortable when ordering foods Takes a daily mvi [facility] Medical History Celiac disease Morbid obesity Obesity Vitamin D deficiency Hypothyroidism Surgical History (Updated 10/09/24 @ 09:09 by KATHLEEN Bob) Hx of colonoscopy History of esophagogastroduodenoscopy (EGD) History of placement of ear tubes History of appendectomy Family History Father Type 2 diabetes mellitus History of heart disease Maternal Grandmother History of colon cancer Maternal Grandfather History of colon cancer Paternal Grandmother History of heart disease Mother No problems noted. Paternal Uncle History of heart disease Social History Household Members: Significant Other Both parents involved: Yes Housing: House Are you a primary certified social workers in health care to a significant other at home: No Alcohol intake: current Alcohol intake frequency: a few times a month Comment: 2x a week 1 glass Patient Tobacco Use Status: Never used Tobacco e-Cigarette/Vaping Use: Never Used Second Hand Smoke Exposure: No service: No Current occupational status: employed Current occupation: [employer] Current occupational exposures/hazards: No Cognitive needs: No Hearing needs: No Vision needs: Yes (glasses) Female Reproductive History Menstrual Age of Menarche: 15 Assessment & Plan Assessment & Plan (1) Celiac disease: Code(s): K90.0 - Celiac disease Category: Medical Plan: Wt: 100 Kg ( 05/16 ), 103kg (07/14), 99kg (10/13), 98 kg (12/14) Est kcal needs as per MSJ: 2000 (40% carb, 30% protein/fat) Est fluid needs as per 25-30 ml/d: 2500 -3000 Est prot per day as per 1 g/kg bw: 100 Recommend fiber intake : 8-10 g per day and gradually increase to 25-28 g per day for women and 35-38 g for men or as tolerated Recommend sodium intake per day : less than 2300 mg Educated patient on: ( R = reviewed V = verbalizes understanding N/R = needs review N/A = not applicable Food sources of carbohydrate, adequate serving sizes and its role in various health conditions: R V N/R Differences between complex carbohydrates a simple carbohydrates, role of fiber in diet, Gluten free options: R , V Lactose free options: R, V introduction to low sucrose diet : R Lean protein sources of foods: R , V (goal 80- 100 g /d) Differences between types of fats and role in diet (mono on saturated fat fatty acids, saturated fatty acids, trans fats): R Food sources of sodium in salt and healthy modifications for heart health in kidney health: R V R/V Vitamins and minerals, choose fortified gluten free options: R , V Healthy plate method concept: R Physical activity: Benefits a precaution: R Patient Instructions: Follow healthy plate method - include greens, seeds , nuts in your meals , incorporating calcium rich foods keep hydrated by having water with meals, calcium fortifed non dairy options , dilute juices with water Coding Level of Care Code Nutr Indiv Subseq (00471) Diagnoses Celiac disease K90.0 Time Spent (min) 30
--- OUTSIDE RECORDS SUMMARY | 2024-11-27 10:17 | XMS_ITS | Clinical Summary ---
Author Organization [facility] Address [address] [place] [phone] Care Team Providers Care Lap Cutter Truer Operator Name Role Phone Evelyne Ring MD Primary [...] Cervical Cancer Screening: P ap Smear 11/20/2003 Depression Screening 03/22/2024 COVID-19 Vaccine (2023-2 5 season) 2024 Influenza Vaccine (#1) 2024 HIB Vaccines Aged [...] age to complete this topic Care Teams Lap Cutter Truer Operator Relationship Specialty Start Date End Date Evelyne Ring MD [address] [place] [address] PCP - General Internal Medicine 10/04/20
== END 2024-11-27 10:15 | disposition home or self-care (01) ==
LOC: HO.ENCR 09:08
PROVIDERS: PCP Internal Medicine; Visit Provider Dietitian, Registered
DX: K90.0 Celiac disease (principal)

== ENCOUNTER → 2024-11-27 09:08 | Outpatient (BNVA) | payer OTHER, SELFPAY | PROVIDERS: PCP Internal Medicine; Visit Provider Dietitian, Registered | DX: K90.0 Celiac disease (principal) | CPT/HCPCS: 97803 ==

== ENCOUNTER 2024-12-25 08:37 | Outpatient (REF) | payer OTHER, SELFPAY ==
--- OUTSIDE RECORDS SUMMARY | 2024-12-25 09:17 | XMS_ITS | Clinical Summary ---
Author Organization [facility] Address [id number] [place] [phone] Care Team Providers Care Golf Cart Maker Name Role Phone Evelyne Ring MD Primary [...] Cervical Cancer Screening: P ap Smear 11/20/2003 HPV Vaccines (1 - 3-dose SCD M series) 2009 Depression Screening 03/22/2024 COVID-19 Vaccine ( - 2023-2 5 season) 2024 Influenza Vaccine (#1) 2024 RSV Immunization Adult Patie nts (1 - 1-dose 75+ series) 2057 HIB Vaccines Aged Out No longer eligi [...] age to complete this topic Care Teams Golf Cart Maker Relationship Specialty Start Date End Date Evelyne Ring MD [address] [place] [address] PCP - General Internal Medicine 10/04/20
== END 2024-12-25 08:38 | disposition home or self-care (01) ==
LOC: HO.MAMMO 08:37
PROVIDERS: PCP Internal Medicine; Visit Provider Internal Medicine
DX: Z12.31 Encounter for screening mammogram for malignant neoplasm of breast (principal)
CPT/HCPCS: 77063; 77067

== ENCOUNTER → 2024-12-25 09:00 | Outpatient (BNV) | payer OTHER, SELFPAY | PROVIDERS: PCP Internal Medicine; Visit Provider Internal Medicine | DX: Z12.31 Encounter for screening mammogram for malignant neoplasm of breast (principal) | CPT/HCPCS: 77063; 77067 ==

== ENCOUNTER 2025-01-01 08:15 | Outpatient (REF) | payer OTHER, SELFPAY ==
--- OUTSIDE RECORDS SUMMARY | 2025-01-01 09:11 | XMS_ITS | Clinical Summary ---
Author Organization [facility] Address [address] [place] [phone] Care Team Providers Care Loan Operations Manager Name Role Phone Evelyne Ring MD [...] age to complete this topic Care Teams Loan Operations Manager Relationship Specialty Start Date End Date Evelyne Ring MD [address] [place] [address] PCP - General Internal Medicine 10/04/20
[2025-01-01 11:06] LABS: Alanine Aminotransferase 17 U/L (0-31); Albumin Level 4.6 g/dL (3.5-5.0); Alkaline Phosphatase 49 U/L (39-117); Anion Gap 10 (12-20); Aspartate Amino Transferase 18 U/L (5-31); Blood Urea Nitrogen 19 mg/dL (9-16); Calcium 9.2 mg/dL (8.4-10.2); Carbon Dioxide 26 mmol/L (22-29); Chloride 108 mmol/L (96-108); Cholesterol 189 mg/dL (<200); Estimated Glomerular Filt Rate > 60; HDL Cholesterol 59 mg/dL (>40); Potassium 4.2 mmol/L (3.3-5.1); Sodium 140 mmol/L (135-145); Total Protein 7.2 g/dL (6.5-8.0); Triglycerides 66 mg/dL (<150)
[2025-01-01 11:25] LABS: Thyroid Stimulating Hormone 0.98 uIU/mL (0.32-4.0)
== END 2025-01-01 08:16 | disposition home or self-care (01) ==
LOC: HO.LAB 08:15
PROVIDERS: PCP Internal Medicine; Visit Provider Internal Medicine
DX: Z00.00 Encounter for general adult medical examination without abnormal findings (principal); Z23 Encounter for immunization; E06.3 Autoimmune thyroiditis; Z79.899 Other long term (current) drug therapy
CPT/HCPCS: 36415; 80053; 80061; 84443; 90471; 90656; 96127; 99396

== ENCOUNTER 2025-01-01 08:15 | Outpatient (AMB) | payer OTHER, SELFPAY ==
--- NOTE | 2025-01-01 08:19 | A.OFFPC_ITS ---
Vital Signs 01/01/25 08:20 Height 5 ft 4 in Weight 218 lb 2 oz BMI 37.4 BP 118/68 Blood Pressure Location Lt brachial Position Sitting Pulse 60 Pulse Source Pulse Oximeter Temp 97.3 F Temp Source Temporal Artery Scan Pulse Oximetry (%) 99 Oxygen Delivery Method Room Air Intake Visit Reasons: PE PHQ-9 needed. Intake Note: Patient is here today for a physical. Teradata Solution Architect Required: No Gradall Operator: Not Required per policy Accompanied by: Self / Same As Patient Allergies gluten Allergy (Unknown, Verified 01/01/25 08:45) Unknown starch Adverse Reaction (Intermediate, Verified 01/01/25 08:45) GI issues diary Adverse Reaction (Intermediate, Uncoded 01/01/25 08:45) GI upset Medication List - Last Reconciled 01/01/25 by Sonia Donovan MD PNV,calcium 14-[id number]-[id number] acid 27 mg iron- 1 mg (M- Plus) 1 tab PO DAILY thyroid (pork) (Gilliam Thyroid) 90 mg PO DAILY 90 days thyroid (pork) 15 mg PO DAILY 90 days Tobacco use date assessed: 01/01/25 Dental Screening Dental Screen Date: 01/01/25 Did you have a dental visit in the last 12 months?: Yes Did you have a dental problem in the last 6 months where you did not have access to dental care?: No Was dental information given to patient?: Patient has dentist HPI HPI Comments History of Present Illness Details The patient is a 44-year-old female presenting with a physical examination and preventative care. 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 The patient was advised to monitor the condition and maintain a healthy lifestyle. The patient underwent endoscopy and colonoscopy this year, revealing duodenitis, esophagitis, and diverticulosis. She manages celiac disease with dietary restrictions, avoiding gluten and starches, which has been challenging but improving. The patient has a thyroid disorder and takes vitamins and thyroid medication. She plans to follow up with endocrinology and filling operator consultations. Family history includes heart disease and diabetes on the paternal side. The patient does not smoke, drinks alcohol occasionally, and is mindful of her dietary restrictions due to celiac disease. - Tdap vaccine administered in 2020, nex t due in 2030 - Mammogram performed this month, result s pending - Pap smear conducted, positive for HPV, biopsy performed - Dietary management for celiac disease [facility] Medical History Celiac disease Morbid obesity Obesity Vitamin D deficiency Hypothyroidism Surgical History Hx of colonoscopy History of esophagogastroduodenoscopy (EGD) History of placement of ear tubes History of appendectomy Family History Father Type 2 diabetes mellitus History of heart disease Maternal Grandmother History of colon cancer Maternal Grandfather History of colon cancer Paternal Grandmother History of heart disease Mother No problems noted. Paternal Uncle History of heart disease Social History Household Members: Significant Other Both parents involved: Yes Housing: House Are you a primary client care specialist to a significant other at home: No Alcohol intake: current Alcohol intake frequency: a few times a month Comment: 2x a week 1 glass Patient Tobacco Use Status: Never used Tobacco e-Cigarette/Vaping Use: Never Used Second Hand Smoke Exposure: No service: No Current occupational status: employed Current occupation: [employer] Current occupational exposures/hazards: No Cognitive needs: No Hearing needs: No Vision needs: Yes (glasses) Female Reproductive History Menstrual Age of Menarche: 15 Questionnaire PHQ-9 Over the last 2 weeks, how often have you been bothered by any of the following problems? 1. Little interest or pleasure in doing things: not at all 2. Feeling down, depressed, or hopeless: not at all 3. Trouble falling or staying asleep, or sleeping too much: not at all 4. Feeling tired or having little energy: not at all 5. Poor appetite or overeating: not at all 6. Feeling bad about yourself - or that you are a failure or have let yourself or your family down: not at all 7. Trouble concentrating on things, such as reading the newspaper or watching television: not at all 8. Moving or speaking so slowly that other people could have noticed. Or the opposite - being so fidgety or restless that you have been moving around a lot more than usual: not at all 9. Thoughts that you would be better off or of hurting yourself in some way: not at all Total score: 0 Depression Screening Interpretation: Negative Depression Screening Done: Yes 99339 - PHQ-9 Billing: Yes Source: Developed by Drs. Sandeep Shannon, Arlet Felder, Jair Sanchez and colleagues, with an educational rachael from [employer]. Thrive Questionnaire Date Thrive assessed: 01/01/25 I am a: Parent/Caregiver What is your living situation today?: I have a steady place to live Within the past 12 months, did the food you bought not last and you didn't have the money to get more?: Never true Within the past 12 months, did you worry whether your food would run out before you got money to buy more?: Never true Do you have trouble paying for medicines?: No Do you have trouble getting transportation to medical appointments?: No Do you have trouble paying your heating and electricity bill?: No Do you have trouble taking care of your child, family member or friend?: No Do you have trouble with day-to-day activities such as bathing, preparing meals, shopping, managing finances, etc.?: No Are you currently unemployed and looking for a job?: No Are you interested in more education?: No Please select the resources that you would like help with: None Currently or been in a relationship where the following occur: No concerns reported THRIVE Score: 0 AUDIT C Alcohol Use Questionnaire (AUDIT-C) 1. How often do you have a drink containing alcohol?: 2-4 times a month 2. How many drinks containing alcohol do you have on a typical day when you are drinking?: 1 or 2 3. How often do you have six or more drinks on one occasion?: Never Total Score: 2 Score Reviewed/Action Taken: No RYAN-7 AMB Questionnaire RYAN-7 Date RYAN - 7 assessed: 01/01/25 Feeling nervous, anxious, or on edge: 0 = Not at all Not being able to stop or control worryin = Not at all Worrying too much about different things: 0 = Not at all Trouble relaxin = Not at all Being so restless that it is hard to sit still: 1 = Several days Becoming easily annoyed or irritable: 0 = Not at all Feeling afraid as if something awful might happen: 0 = Not at all Total RYAN-7 score (0-4 normal; 5-9 mild; 10-14 moderate; 15-21 severe): 1 Source: Developed by Drs. Sandeep Shannon, Arlet Felder, Jair Sanchez and colleagues, with an educational rachael from [employer]. RYAN-7 Assessment Billing RYAN-7 Assessment Tool: RYAN-7 Assessment 82586 Review of Systems Const All systems reviewed & are unremarkable except as noted in HPI and below Card Denies chest pain at rest, Denies chest pain with activity, Denies edema, Denies irregular heart rhythm, Denies claudication, Denies dyspnea, Denies dyspnea on exertion, Denies orthopnea, Denies paroxysmal nocturnal dyspnea and Denies slow heart rate Resp Denies cough, Denies dyspnea and Denies dyspnea on exertion GI Denies abdominal pain, Denies change in bowel habits, Denies excessive flatus, Denies nausea and Denies vomiting Neuro Denies lack of coordination Physical exam (Primary Care) Vital Signs: Last Vital Signs Temp 97.3 F 01/01/25 08:20 Pulse 60 01/01/25 08:20 BP 118/68 01/01/25 08:20 Pulse Ox 99 01/01/25 08:20 Oxygen Delivery Method Room Air 01/01/25 08:20 BMI result Body Mass Index 37.4 BMI Assessment/Plan discussion: High BMI High, discussed plan: lifestyle, weight reduction, dietary and physical activity Tobacco/Smoking Status: Tobacco use Status Tobacco use date assessed 01/01/25 01/01/25 08:27 Patient Tobacco Use Status Never used Tobacco 01/01/25 08:27 e-Cigarette/Vaping Use Never Used 01/01/25 08:27 PHQ-9: PHQ-9 Score PHQ-9: Total score 0 01/01/25 08:48 Depression Screening Interpretation: Negative Thrive Assessment: Date of Thrive Assessment Date Thrive assessed 01/01/25 01/01/25 08:27 Currently or been in a relationship where the following occur: No concerns reported HENMT Head: Yes normal to inspection, Yes normocephalic and Yes atraumatic Ears: external ears normal Eyes General: appearance normal, both eyes and all related structures Eyelids: Yes eyelids normal Conjunctivae: conjunctivae normal Neck Neck: Yes normal visual inspection and Yes supple Resp Effort & Inspection: normal respiratory effort Auscultation: clear to auscultation bilaterally Cardio Jugular venous distension: no JVD Rate: regular rate Rhythm: regular rhythm Heart sounds: S1 normal heart sound present and S2 normal heart sound present GI Inspection: Yes normal to inspection Palpation (GI): Soft to palpation and nontender Auscultation: normal bowel sounds Skin General skin exam: no rashes or lesions noted Neuro General: no focal motor deficits Extrem General: Yes full ROM Psych Appearance: grossly normal Office Procedures Flu Questionnaire Does the patient have a severe egg allergy?: No Does the patient have severe life threatening allergies?: No Does the patient have a fever or illness today?: No Has the patient ever had Guillain-Arapahoe Syndrome?: No Has the patient ever had any past reaction to a flu shot?: No Immunizations Fluarix [id number] (PF) 45 mcg (15 mcg x 3)/0.5 mL IM syringe Performing Provider: Sonia Donovan MD [facility] Administered by: Adelina Schulte CMA on 01/01/25 08:58 Dose Route Admin Location Dispensed Lot Number Expiration Date NDC Tray Packer 0.5 mL IM Left Deltoid 0.5 mL [id number] 09/18/25 [id number] [employer] [place] VIS Given Date VIS Provided VIS Publication Date 01/01/25 Single Vaccine 24 Eligibility Eligibility Date Funding Source Not [facility] Eligible 01/01/25 Private Coding Level of Care Code Est Pt Prev Care 40-64y(59054) Diagnoses Annual physical exam Z00. Additional Codes PHQ-9 - 19458 - PHQ-9 Billing: Yes ([id number]) RYAN-7 Assessment Billing - RYAN-7 Assessment Tool: RYAN-7 Assessment 64563 ([id number]) Time Spent (min) 30 Assessment & Plan Assessment & Plan (1) Annual physical exam: Code(s): Z00.00 - Encounter for general adult medical examination without abnormal findings Category: Medical Plan Plan 1. Encounter for general adult medical examination without abnormal findings Z00.00 The patient has been diagnosed with HPV infection showing low-grade CIN1. A biopsy was performed, and the patient is advised to monitor the condition and maintain a healthy lifestyle. Mammogram done and results pending. Orders: Orders Comprehensive [place]. Panel Fast Today Z00.00 - Encounter for general adult medical examination without abnormal findings Influenza [id number] Immunization Today Z23 - Encounter for immunization Thyroid Stimulating Hormone Today E06.3 - Autoimmune thyroiditis Lipid Panel Today Z00.00 - Encounter for general adult medical examination without abnormal findings
[2025-01-01 08:20] VITALS: BP 118/68; PULSE 60; TEMP 36.3; O2SAT 99; BMI 37.4
== END 2025-01-01 09:03 | disposition home or self-care (01) ==
LOC: HO.HMCH 08:16
PROVIDERS: PCP Internal Medicine; Visit Provider Internal Medicine
DX: Z00.00 Encounter for general adult medical examination without abnormal findings (principal); Z23 Encounter for immunization

== ENCOUNTER 2025-01-03 10:27 | Outpatient (REF) | payer OTHER, SELFPAY ==
--- NOTE | ~2025-01-03 | US_ITS ---
EXAMINATION: US DIAGNOSTIC ULTRASOUND BREAST, BILATERAL CLINICAL INFORMATION: Follow-up for bilateral hypoechoic solid masses versus complicated cysts followed since November 2022. Patient had recent mammography which was stable dating back to 12 December. COMPARISON: Comparison is made with relevant prior imaging. TECHNIQUE: Ultrasound of the breast is performed with real-time iniguez scale imaging and color Doppler. FINDINGS: Left: Targeted color Doppler ultrasound again demonstrates a hypoechoic oval circumscribed solid mass versus complex cyst at 2:00 5 cm from nipple measuring 7 x 7 x 3 mm not significantly changed from prior ultrasounds dating back to November 2022 and therefore benign. Targeted color Doppler ultrasound scanning at 12:00 2 cm from nipple demonstrates a hypoechoic oval circumscribed solid mass versus complicated cyst measuring 7 x 5 x 2 mm this is a correlate for the focal asymmetry in the upper central right breast and is similar-appearing to the ultrasound dated December 07, 2022 and appearance and therefore stable for more than 2 years and benign. Results are discussed with the patient at time of visit. US/US Breast BI Limited Mamm Only IMPRESSION: Benign bilateral solid mass versus complicated cysts is stable for more than 2 years on mammogram and ultrasound. Benign. ASSESSMENT: BI-RADS 1: Negative RECOMMENDATION: Routine annual mammography screening. This patient's information was entered into a reminder system with a target due date for their next mammogram. Electronically signed by: Maria Luisa Crook DO 01/03/2025 11:23 AM EDT
--- OUTSIDE RECORDS SUMMARY | 2025-01-03 12:25 | XMS_ITS | Clinical Summary ---
Author Organization [facility] Address [address] [place] [phone] Care Team Providers Care Angle Bender Name Role Phone Evelyne Ring MD Primary [...] age to complete this topic Care Teams Angle Bender Relationship Specialty Start Date End Date Evelyne Ring MD [address] [place] [address] PCP - General Internal Medicine 10/04/20
== END 2025-01-03 10:28 | disposition home or self-care (01) ==
LOC: HO.MAMMO 10:27
PROVIDERS: Visit Provider Internal Medicine
DX: R92.2 Inconclusive mammogram (principal)
CPT/HCPCS: 76642

== ENCOUNTER → 2025-01-03 11:00 | Outpatient (BNV) | payer OTHER, SELFPAY | PROVIDERS: Visit Provider Internal Medicine | DX: R92.30 Dense breasts, unspecified (principal) | CPT/HCPCS: 76642 ==

== ENCOUNTER 2025-02-26 09:22 | Outpatient (AMB) | payer OTHER, SELFPAY ==
--- NOTE | 2025-02-26 09:42 | A.OFFVIS_ITS ---
VS Expanded 02/26/25 09:43 Height 5 ft 4 in Weight 218 lb 8 oz BMI 37.5 Intake Visit Reasons: celiac disease Allergies gluten Allergy (Unknown, Verified 01/01/25 08:45) Unknown starch Adverse Reaction (Intermediate, Verified 01/01/25 08:45) GI issues diary Adverse Reaction (Intermediate, Uncoded 01/01/25 08:45) GI upset Nutrition Presentation Details: Patient presents for medical nutrition therapy follow-up for celiac disease Patient develops GI symptoms related to low lactase, maltase enzymes Patient reports working on choosing gluten free foods, for the most part with challenges in reducing starches. Trying to incorporate non starchy vegetables more frequently. Takes a daily multivitamin Food frequency Beverages: Water, water with lemon sometimes vitamin water , 42 oz of water/fluids per day Fish 0 to once per week Fruits 0-1 a day Dairy alternative: Choosing almond milk once to 2 times a day Non starchy vegetables 3 times a week BS Monitoring Most Recent Diabetes Results: Cholesterol, (<200) 189 mg/dL 01/01/25 HDL Cholesterol, (>40) 59 mg/dL 01/01/25 Triglycerides, (<150) 66 mg/dL 01/01/25 Creatinine, (0.5-1.4) 0.63 mg/dL 01/01/25 BUN, (9-16) 19 mg/dL H 01/01/25 Sodium, (135-145) 140 mmol/L 01/01/25 Potassium, (3.3-5.1) 4.2 mmol/L 01/01/25 Chloride, (96-108) 108 mmol/L 01/01/25 Carbon Dioxide, (22-29) 26 mmol/L 01/01/25 Calcium, (8.4-10.2) 9.2 mg/dL 01/01/25 AST, (5-31) 18 U/L 01/01/25 ALT, (0-31) 17 U/L 01/01/25 Total Protein, (6.5-8.0) 7.2 g/dL 01/01/25 Albumin, (3.5-5.0) 4.6 g/dL 01/01/25 [facility] Medical History Celiac disease Morbid obesity Obesity Vitamin D deficiency Hypothyroidism Surgical History Hx of colonoscopy History of esophagogastroduodenoscopy (EGD) History of placement of ear tubes History of appendectomy Family History Father Type 2 diabetes mellitus History of heart disease Maternal Grandmother History of colon cancer Maternal Grandfather History of colon cancer Paternal Grandmother History of heart disease Mother No problems noted. Paternal Uncle History of heart disease Social History Household Members: Significant Other Both parents involved: Yes Housing: House Are you a primary school childcare attendant to a significant other at home: No Alcohol intake: current Alcohol intake frequency: a few times a month Comment: 2x a week 1 glass Patient Tobacco Use Status: Never used Tobacco e-Cigarette/Vaping Use: Never Used Second Hand Smoke Exposure: No service: No Current occupational status: employed Current occupation: [employer] Current occupational exposures/hazards: No Cognitive needs: No Hearing needs: No Vision needs: Yes (glasses) Female Reproductive History Menstrual Age of Menarche: 15 Assessment & Plan Assessment & Plan (1) Celiac disease: Code(s): K90.0 - Celiac disease Category: Medical Plan: Wt: 100 Kg ( 05/16 ), 103kg (07/14), 99kg (10/13), 98 kg (12/14), 99kg(03/15) Est kcal needs as per MSJ: 2000 (40% carb, 30% protein/fat) Est fluid needs as per 25-30 ml/d: 2500 -3000 Est prot per day as per 1 g/kg bw: 100 Recommend fiber intake : 8-10 g per day and gradually increase to 25-28 g per day for women and 35-38 g for men or as tolerated Recommend sodium intake per day : less than 2300 mg Educated patient on: ( R = reviewed V = verbalizes understanding N/R = needs review N/A = not applicable * Food sources of carbohydrate, adequate serving sizes and its role in various health conditions: R V N/R * Differences between complex carbohydrates a simple carbohydrates, role of fibe r in diet, Gluten free options: R , V * Lactose free options: R, V * introduction to low sucrose diet : R * Lean protein sources of foods: R , V (goal 80- 100 g /d) * Differences between types of fats and role in diet (mono on saturated fat fatty acids, saturated fatty acids, trans fats): R * Food sources of sodium in salt and healthy modifications for heart health in kidney health: R V R/V * Vitamins and minerals, choose fortified gluten free options: R , V * Healthy plate method concept: R * Physical activity: Benefits a precaution: R Patient Instructions: Choose grilled poultry, grilled protein foods (reducing on starches including gluten free starches Include food sources of calcium , aim at 1000 mg per day (fish twice a week: [place], sardines ), bok bella, jamia seeds, tofu, sardines, broccoli,kale) Coding Level of Care Code Nutr Indiv Subseq (64715) Diagnoses Celiac disease K90.0 Time Spent (min) 30
[2025-02-26 09:43] VITALS: BMI 37.5
== END 2025-02-26 10:07 | disposition home or self-care (01) ==
LOC: HO.ENCR 09:23
PROVIDERS: PCP Internal Medicine; Visit Provider Dietitian, Registered
DX: K90.0 Celiac disease (principal)

== ENCOUNTER → 2025-02-26 09:22 | Outpatient (BNVA) | payer OTHER, SELFPAY | PROVIDERS: PCP Internal Medicine; Visit Provider Dietitian, Registered | DX: Z09 Encounter for follow-up examination after completed treatment for conditions other than malignant neoplasm (principal); K90.0 Celiac disease; Z71.3 Dietary counseling and surveillance | CPT/HCPCS: 97803 ==